=== PATIENT | male | born 1940 | race Hispanic/Latino ===

== ENCOUNTER 2018-04-10 23:30 | Emergency (ER) | payer SELFPAY ==
[2018-04-11] MEDS ORDERED: IPRATROPIUM BROM 0.5MG/2.5ML ONE (00:02)
[2018-04-11] MEDS ORDERED: ALBUTEROL 2.5 MG/3 ML NEB SOL ONE (00:02)
--- NOTE | 2018-04-11 01:31 | ER ---
Nurse's Notes [facility] Name: Glenn Cooney Age: 78 yrs Sex: Male : 1940 Arrival Date: 04/10/2018 Time: 23:31 Bed 13 Private MD: Diagnosis: Bronchitis, not specified as acute or chronic Presentation: 04/10 23:47 Presenting complaint: Son report pt has been having difficulty breathing for about a ea week, he has been unable to clear his secretions. Transition of care: patient was not received from another setting of care. Onset of symptoms was April 10, 2018. Risk Assessment: Do you want to hurt yourself or someone else? Patient reports no desire to harm self or others. Initial Sepsis Screen: Does the patient meet any 2 criteria? No. Patient's initial sepsis screen is negative. Does the patient have a suspected source of infection? No. Patient's initial sepsis screen is negative. Care prior to arrival: None. 23:47 Method Of Arrival: Ambulatory ea 23:47 Acuity: EDUAR 3 ea Triage Assessment: 23:47 General: Appears uncomfortable, Behavior is appropriate for age. Pain: Denies pain. ea EENT: tracheostomy . Neuro: Level of Consciousness is awake, alert, obeys commands, Oriented to person, place, time. Cardiovascular: Patient's skin is warm and dry. Respiratory: Reports labored breathing since 1 week Onset: The symptoms/episode began/occurred gradually, the patient has mild shortness of breath. GI: No signs and/or symptoms were reported involving the gastrointestinal system. : No signs and/or symptoms were reported regarding the genitourinary system. Derm: Skin is pink, warm \T\ dry. 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 - Social history:: Smoking status: Patient/guardian denies using tobacco. - Ebola Screening: : No symptoms or risks identified at this time. Screenin:51 Abuse screen: Denies threats or abuse. Nutritional screening: No deficits noted. ea Tuberculosis screening: No symptoms or risk factors identified. Fall Risk None identified. Assessment: 11:57 Cardiovascular: Patient's skin is warm and dry. Respiratory: Airway is patent ea Respiratory effort is labored, Breath sounds are clear bilaterally. 04/11 00:02 Reassessment: see triage assessment. ea 01:38 Reassessment: Patient and/or family updated on plan of care and expected duration. Pain ea level reassessed. Patient is alert, oriented x 3, equal unlabored respirations, skin warm/dry/pink. Discharge instruction given to patient and family, both verbalized the understanding of instruction Patient states feeling better. Patient states symptoms have improved. Vital Signs: 04/10 23:47 BP 144 / 70; Pulse 70; Resp 22; Temp 98.6; Pulse Ox 99% on R/A; Weight 81.65 kg; Height ea 5 ft. 6 in. (167.64 cm); Pain 0/10; 04/11 00:50 BP 138 / 68; Pulse 67; Resp 19; Pulse Ox 99% ; ea 01:30 BP 132 / 70; Pulse 76; Resp 19; Pulse Ox 99% ; ea 04/10 23:47 Body Mass Index 29.05 (81.65 kg, 167.64 cm) ea ED Course: 04/10 23:31 Patient arrived in ED. am2 23:40 Tania Cordero FNP-C [facility]. snw 23:40 Denise Ambrosio MD is Attending Physician. snw 23:47 Yani Zarco RN is Primary Nurse. ea 23:48 Triage completed. ea 23:52 Patient has correct armband on for positive identification. Bed in low position. Call ea light in reach. Side rails up X2. 23:52 Arm band placed on right wrist. Patient placed in an exam room, on a stretcher, on ea pulse oximetry. 04/11 00:27 X-ray completed. Portable x-ray completed in exam room. Patient tolerated procedure sg4 well. 00:34 Chest Single View XRAY In Process Unspecified. EDMS 01:40 No provider procedures requiring assistance completed. Patient did not have IV access ea during this emergency room visit. Administered Medications: 04/10 23:56 Drug: Albuterol - atroVENT (3:1) (2.5 mg - 0.5 mg) 3 ml Route: Nebulizer; ea Outcome: 04/11 01:30 Discharge ordered by . bernardo 01:40 Discharged to home ambulatory, with family. snow 01:40 Condition: improved 01:40 Discharge instructions given to patient, family, Instructed on discharge instructions, follow up and referral plans. medication usage, Demonstrated understanding of instructions, follow-up care, medications, Prescriptions given X 1. 01:49 Patient left the ED. ea Signatures: Dispatcher [employer] EDMS Tania Cordero, PROCESSOR HELPER-C PROCESSOR HELPER-Csnw Sarai Salazar Elena, RN RN Bee Carlisle4
--- NOTE | 2018-04-11 01:31 | EDPHYS ---
Physician Documentation [facility] Name: Glenn Cooney Age: 78 yrs Sex: Male : 1940 Arrival Date: 04/10/2018 Time: 23:31 Bed 13 Private MD: ED Physician Denise Ambrosio HPI: 04/10 23:51 This 78 yrs old Male presents to ER via Ambulatory with complaints of snw Breathing Difficulty, Productive Cough, Congestion. 23:51 The patient has shortness of breath at rest. Onset: The symptoms/episode began/occurred snw suddenly, 4 day(s) ago, and became persistent. Duration: The symptoms are continuous, and are unchanged since they started. The patient's shortness of breath is aggravated by coughing. Severity of symptoms: At their worst the symptoms were moderate. The patient has experienced similar episodes in the past. It is unknown whether or not the patient has recently seen a physician. 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 - Social history:: Smoking status: Patient/guardian denies using tobacco. - Ebola Screening: : No symptoms or risks identified at this time. ROS: 23:51 Constitutional: Negative for fever, chills, and weight loss, Eyes: Negative for injury, snw pain, redness, and discharge, ENT: Negative for injury, pain, and discharge, Neck: Negative for injury, pain, and swelling, Cardiovascular: Negative for chest pain, palpitations, and edema. 23:51 Abdomen/GI: Negative for abdominal pain, nausea, vomiting, diarrhea, and constipation, Back: Negative for injury and pain, : Negative for injury, bleeding, discharge, and swelling, MS/Extremity: Negative for injury and deformity, Skin: Negative for injury, rash, and discoloration, Neuro: Negative for headache, weakness, numbness, tingling, and seizure. 23:51 Respiratory: Positive for cough, shortness of breath. Exam: 23:48 Constitutional: This is a well developed, well nourished patient who is awake, alert, snw and in no acute distress. Head/Face: Normocephalic, atraumatic. Eyes: Pupils equal round and reactive to light, extra-ocular motions intact. Lids and lashes normal. Conjunctiva and sclera are non-icteric and not injected. Cornea within normal limits. Periorbital areas with no swelling, redness, or edema. ENT: Nares patent. No nasal discharge, no septal abnormalities noted. Tympanic membranes are normal and external auditory canals are clear. Oropharynx with no redness, swelling, or masses, exudates, or evidence of obstruction, uvula midline. Mucous membranes moist. Chest/axilla: Normal chest wall appearance and motion. Nontender with no deformity. No lesions are appreciated. Cardiovascular: Regular rate and rhythm with a normal S1 and S2. No gallops, murmurs, or rubs. Normal PMI, no JVD. No pulse deficits. Abdomen/GI: Soft, non-tender, with normal bowel sounds. No distension or tympany. No guarding or rebound. No evidence of tenderness throughout. Back: No spinal tenderness. No costovertebral tenderness. Full range of motion. Skin: Warm, dry with normal turgor. Normal color with no rashes, no lesions, and no evidence of cellulitis. MS/ Extremity: Pulses equal, no cyanosis. Neurovascular intact. Full, normal range of motion. Neuro: Awake and alert, GCS 15, oriented to person, place, time, and situation. Cranial nerves II-XII grossly intact. Motor strength 5/5 in all extremities. Sensory grossly intact. Cerebellar exam normal. Normal gait. Psych: Awake, alert, with orientation to person, place and time. Behavior, mood, and affect are within normal limits. 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 no appliance except plug for speech assistance. 23:48 Respiratory: the patient does not display signs of respiratory distress, Respirations: shallow respirations, tachypnea, Breath sounds: wheezing: that is mild, is heard diffusely, SpO2 100% room air. Vital Signs: 23:47 BP 144 / 70; Pulse 70; Resp 22; Temp 98.6; Pulse Ox 99% on R/A; Weight 81.65 kg; Height ea 5 ft. 6 in. (167.64 cm); Pain 0/10; 04/11 00:50 BP 138 / 68; Pulse 67; Resp 19; Pulse Ox 99% ; ea 01:30 BP 132 / 70; Pulse 76; Resp 19; Pulse Ox 99% ; ea 04/10 23:47 Body Mass Index 29.05 (81.65 kg, 167.64 cm) ea MDM: 04/10 23:41 Patient medically screened. snw 04/11 01:29 Data reviewed: vital signs, nurses notes. Data interpreted: Pulse oximetry: on room air snw is 99 %. Interpretation: normal. Counseling: I had a detailed discussion with the patient and/or guardian regarding: the historical points, exam findings, and any diagnostic results supporting the discharge/admit diagnosis, the presence of at least one elevated blood pressure reading (>120/80) during this emergency department visit, radiology results, the need for outpatient follow up, to return to the emergency department if symptoms worsen or persist or if there are any questions or concerns that arise at home. Response to treatment: the patient's symptoms have markedly improved after treatment, and as a result, I will discharge patient. Special discussion: Based on the history and exam findings, there is no indication for further emergent testing or inpatient evaluation. I discussed with the patient/guardian the need to see the primary care provider for further evaluation of the symptoms. I discussed with the patient/guardian the need to see the choke setter for further evaluation of the symptoms. 04/10 23:46 Order name: Chest Single View XRAY snw 04/10 23:46 Order name: Suction; Complete Time: 23:56 snw Administered Medications: 04/10 23:56 Drug: Albuterol - atroVENT (3:1) (2.5 mg - 0.5 mg) 3 ml Route: Nebulizer; ea Disposition: 04/11 06:00 Co-signature as Attending Physician, Denise Ambrosio MD. ma2 Disposition: 04/11/18 01:30 Discharged to Home. Impression: Bronchitis, not specified as acute or chronic. - Condition is Stable. - Discharge Instructions: Acute Bronchitis, Adult, Hypertension, Cool Mist Vaporizer, Rehydration, Elderly. - Prescriptions for Guaifenesin- DM 10-100 mg/5 mL Oral Liquid - take 5 milliliter by ORAL route every 8 hours As needed as needed; 60 milliliter. - Medication Reconciliation Form, Thank You Letter, Antibiotic Education, Prescription Opioid Use form. - Follow up: Private Physician; When: 1 - 2 days; Reason: Recheck today's complaints, Continuance of care, Re-evaluation by your physician. Follow up: Emergency Department; When: As needed; Reason: Trouble breathing, Worsening of condition. Signatures: Dispatcher [employer] EDAL Tania Cordero, TRINIDAD-C CAD CAM PROGRAMMER-Csnw Yani Zarco, Denise Quintana RN, ea, MD MD ma2 Corrections: (The following items were deleted from the chart) 01:49 01:30 04/11/2018 01:30 Discharged to Home. Impression: Bronchitis, not specified as ea acute or chronic. Condition is Stable. Forms are Medication Reconciliation Form, Thank You Letter, Antibiotic Education, Prescription Opioid Use. Follow up: Private Physician; When: 1 - 2 days; Reason: Recheck today's complaints, Continuance of care, Re-evaluation by your physician. Follow up: Emergency Department; When: As needed; Reason: Trouble breathing, Worsening of condition. snw
[2018-04-11 02:02] VITALS: BP 144/70; TEMP 98.6; O2SAT 99
--- NOTE | 2018-04-11 13:52 | RAD REPORT ---
EXAM DESCRIPTION: RAD - Chest Single View - 04/11/2018 12:33 am CLINICAL HISTORY: COUGH Chest pain. COMPARISON: Chest Single View dated 12/16/2016; CHEST SINGLE VIEW dated 01/03/2013; CHEST SINGLE VIEW d ated 11/04/2012 FINDINGS: Portable technique limits examination quality. The lungs are grossly clear. Mild chronic changes are present in the left base. The heart is normal i n size. No displaced fractures. IMPRESSION: No acute intrathoracic process suspected.
== END 2018-04-11 01:49 | disposition home or self-care (01) ==
LOC: ER 23:30
DX: J40 Bronchitis, not specified as acute or chronic (principal); E03.9 Hypothyroidism, unspecified; I10 Essential (primary) hypertension; Z79.899 Other long term (current) drug therapy
CPT/HCPCS: 71045; 94640; 99284

== ENCOUNTER 2020-06-08 12:46 | Inpatient (IN) | payer SELFPAY ==
--- OUTSIDE RECORDS SUMMARY | 2020-06-08 12:52 | XMS REPORT | Continuity of Care Document ---
:1940 Author Organization [facility] t Address [address] [place] [address] Care Team Providers Name Role Phone Hortencia CORONADO, Lou Lozoya Attending Clinician Unavailable Problems This patient has no known problems. Allergies, Adverse Reactions, Alerts This patient has no known allergies or adverse reactions. Medications This patient has no known medications. Procedures This patient has no known procedures. Encounters Start End Encounter Admission Attending Care Care Encounter Source Date/Time Date/Time Type Type Clinicians Facility Department ID 2018-12-22 2018-12-23 Ancillary CHUCKY Burnett [id number] 07:58:54 21:59:48 Visit Lou Lozoya [facility] [id number] Cancer [id number] Center - [id number] [facility] 145 Results This patient has no known results.
--- NOTE | 2020-06-08 14:06 | RAD REPORT ---
EXAM DESCRIPTION: RAD - Chest Single View - 06/08/2020 1:48 pm CLINICAL HISTORY: SOB COMPARISON: AP chest March 2018 TECHNIQUE: AP portable chest image was obtained 06/08/2020 1:48 pm . FINDINGS: Lung volumes are reduced compared to prior study. Increased interstitial pattern is seen i n both lung bases, worse on the left. Similar findings were noted on the prior study and the current lower lung volume could account for the accentuated appearance on this examination. Heart and vascula ture are normal. No measurable pleural effusion and no pneumothorax. No acute bony abnormality seen. No acute aortic findings suspected. IMPRESSION: Chronic interstitial pattern worse in the left lung base. When adjusting for the more shallow inspiratory effort, chest findings are not substantially differen t.
[2020-06-08] MEDS ORDERED: NA CHLORIDE 0.9% 2,000 ML ONE (14:10)
[2020-06-08 14:15] LABS: Basophils % 0.1 % (0-1.3); Hematocrit 41.4 % (39.6-49.0); Lymphocytes % 14.9 % (15.3-44.8); MPV 10.4 fL (7.6-11.3); RBC Red Blood Cell Count 4.77 M/uL (4.33-5.43)
[2020-06-08 14:27] LABS: Protime INR 1.05
[2020-06-08 14:51] LABS: Urine Blood NEGATIVE (NEG); Urine Glucose NEGATIVE (NEG); Urine Protein 1+ (NEG)
[2020-06-08 14:53] LABS: Albumin 3.1 g/dL (3.4-5.0); Bilirubin Direct 0.5 mg/dL (0-0.2); Bilirubin Total 1.6 mg/dL (0.2-1.0); Ferritin 2222.9 ng/mL (26-388); Potassium 4.4 mmol/L (3.5-5.1); Protein, Total 8.1 g/dL (6.4-8.2); Troponin (Emerg Dept Use Only) 0.07 ng/mL (0.0-0.045)
[2020-06-08 15:05] LABS: Urine Amorphous Sediment 4+ /HPF (NONE SEEN); Urine Bacteria <20 /HPF (NONE SEEN); Urine RBC <5 /HPF (NONE SEEN)
[2020-06-08 15:08] LABS: Blood Morphology Comment NOT SEEN (NOT SEEN); Platelet Estimate DECR; White Blood Cell Scan OK (OK)
[2020-06-08 15:17] LABS: SARS-COV-2 RT PCR POSITIVE (NEGATIVE)
--- NOTE | 2020-06-08 15:50 | EDPHYS ---
Physician Documentation [facility] Name: Glenn Cooney Age: 80 yrs Sex: Male : 1940 Arrival Date: 06/08/2020 Time: 12:48 Bed 25 Private MD: ED Physician Chris Spaulding HPI: 06/08 13:41 This 80 yrs old Male presents to ER via Wheelchair with complaints of tw4 Breathing Difficulty, General Weakness. 13:41 The patient has shortness of breath at rest. Onset: The symptoms/episode began/occurred tw4 at an unknown time. Associated signs and symptoms: Pertinent positives: generalized weakness. Unable to obtain HPI due to patient's speech is incomprehensible. The patient has not experienced similar symptoms in the past. 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 - Social history:: Smoking status: Patient denies any tobacco usage or history of. ROS: 13:41 Constitutional: Negative for fever, chills, and weight loss, Eyes: Negative for injury, tw4 pain, redness, and discharge, Cardiovascular: Negative for chest pain, palpitations, and edema, Abdomen/GI: Negative for abdominal pain, nausea, vomiting, diarrhea, and constipation, Back: Negative for injury and pain, MS/Extremity: Negative for injury and deformity, Skin: Negative for injury, rash, and discoloration, Neuro: Negative for headache, weakness, numbness, tingling, and seizure. 13:41 Respiratory: Positive for shortness of breath, Negative for cough, dyspnea on exertion, hemoptysis, orthopnea, pleurisy. Exam: 13:41 Constitutional: This is a well developed, well nourished patient who is awake, alert, tw4 and in no acute distress. Head/Face: Normocephalic, atraumatic. Neck: Trachea midline, no thyromegaly or masses palpated, and no cervical lymphadenopathy. Supple, full range of motion without nuchal rigidity, or vertebral point tenderness. No Meningismus. Chest/axilla: Normal chest wall appearance and motion. Nontender with no deformity. No lesions are appreciated. Cardiovascular: Regular rate and rhythm with a normal S1 and S2. No gallops, murmurs, or rubs. Normal PMI, no JVD. No pulse deficits. Abdomen/GI: Soft, non-tender, with normal bowel sounds. No distension or tympany. No guarding or rebound. No evidence of tenderness throughout. Back: No spinal tenderness. No costovertebral tenderness. Full range of motion. Skin: Warm, dry with normal turgor. Normal color with no rashes, no lesions, and no evidence of cellulitis. MS/ Extremity: Pulses equal, no cyanosis. Neurovascular intact. Full, normal range of motion. Neuro: Awake and alert, GCS 15, oriented to person, place, time, and situation. Cranial nerves II-XII grossly intact. Motor strength 5/5 in all extremities. Sensory grossly intact. Cerebellar exam normal. Normal gait. Vital Signs: 13:00 BP 90 / 58; Pulse 56; Resp 22 S; Temp 97.6(TE); Pulse Ox 96% on R/A; Weight 63.5 kg ca1 (R); Height 5 ft. 9 in. (175.26 cm) (R); 13:00 BP 94 / 59; Pulse 54; Resp 23; Pulse Ox 95% on R/A; zb 14:00 BP 90 / 49; Pulse 53; Resp 18; Pulse Ox 97% on R/A; dh4 14:00 BP 101 / 46; Pulse 54; Resp 18; Pulse Ox 96% on R/A; dh4 15:00 BP 101 / 46; Pulse 53; Resp 20; Pulse Ox 96% on R/A; zb 16:00 BP 99 / 50; Pulse 53; Resp 22; Pulse Ox 96% on R/A; zb 17:00 BP 105 / 52; Pulse 53; Resp 20; Pulse Ox 97% on R/A; zb 18:00 BP 102 / 64; Pulse 59; Resp 20; Pulse Ox 97% on R/A; zb 19:00 BP 90 / 59; Pulse 57; Resp 21; Pulse Ox 98% on R/A; zb 20:00 BP 117 / 64; Pulse 57; Resp 19; Pulse Ox 97% on R/A; zb 13:00 Body Mass Index 20.67 (63.50 kg, 175.26 cm) ca1 MDM: 13:34 Patient medically screened. tw4 13:41 Data reviewed: vital signs, nurses notes. 06/08 13:11 Order name: Blood Culture Adult (2) 4 06/08 13:11 Order name: BMP 4 06/08 13:11 Order name: C-Reactive Protein 4 06/08 13:11 Order name: CBC with Diff 06/08 13:11 Order name: COVID-19 [facility] 06/08 13:11 Order name: D-Dimer 06/08 13:11 Order name: Ferritin 06/08 13:11 Order name: Flu 06/08 13:11 Order name: Lactate 06/08 13:11 Order name: LFT's [facility] 06/08 13:11 Order name: Lipase 06/08 13:11 Order name: Procalcitonin [facility] 06/08 13:11 Order name: PT-INR [facility] 06/08 13:11 Order name: Ptt, Activated 06/08 13:11 Order name: Strep 06/08 13:11 Order name: Troponin (emerg Dept Use Only) [facility] 06/08 13:11 Order name: Urine Microscopic Only 06/08 13:12 Order name: BNP 06/08 14:20 Order name: [facility] 06/08 14:20 Order name: Influenza Screen (A EDPA 06/08 14:21 Order name: Lactate; Complete Time: 14:49 MS 06/08 14:51 Interpretation: Within normal limits: LAC 1.4. 06/08 14:22 Order name: CBC with Automated Diff; Complete Time: 15:45 EDMS 06/08 14:50 Interpretation: Normal except: LYM% 14.9; PLT 94; SALIMA% 78.8. 06/08 14:23 Order name: Group A Streptococcus Rapid Sc; Complete Time: 14:49 EDMS 06/08 14:50 Interpretation: Normal except: GP A STREP SC \T\nbsp; GROUP A STREP SCREEN-- \T\nbsp; tw 4 \T\nbsp; POSITIVE. 06/08 14:30 Order name: Protime (+INR); Complete Time: 14:49 EDMS 06/08 14:51 Interpretation: Within normal limits: PT 12.4. tw4 01/22 14:30 Order name: PTT, Activated Partial Thromb; Complete Time: 14:49 EDMS 06/08 14:51 Interpretation: Within normal limits: PTT 26.0. 06/08 14:30 Order name: D-Dimer; Complete Time: 14:49 EDMS 06/08 14:50 Interpretation: Normal except: D-DIMER 1553. 06/08 14:31 Order name: Urine Dipstick--Ancillary (enter results) 06/08 14:42 Order name: Procalcitonin; Complete Time: 15:45 EDMS 06/08 14:50 Interpretation: Abnormal: Procalcitonin 0.37. 06/08 14:51 Order name: Urine Dipstick-Ancillary; Complete Time: 15:00 EDMS 06/08 14:54 Order name: Basic Metabolic Panel; Complete Time: 14:58 EDMS 06/08 14:58 Interpretation: Normal except: CRE 2.45; BUN 80; GLUC 113; GFR 26. 06/08 13:11 Order name: CXR XRAY 06/08 13:11 Order name: EKG; Complete Time: 13:13 06/08 13:11 Order name: Cardiac monitoring; Complete Time: 14:05 06/08 13:11 Order name: Droplet/Contact Precautions; Complete Time: 14:05 06/08 13:11 Order name: EKG - Nurse/Tech; Complete Time: 14:05 06/08 13:11 Order name: Michaud; Complete Time: 14:28 06/08 13:11 Order name: IV Start; Complete Time: 14:05 06/08 13:11 Order name: Labs collected and sent; Complete Time: 14:05 06/08 13:11 Order name: O2 Per Protocol; Complete Time: 14:05 06/08 13:11 Order name: O2 Sat Monitoring; Complete Time: 14:05 06/08 13:11 Order name: Urine Dipstick-Ancillary (obtain specimen); Complete Time: 14:28 06/08 14:07 Order name: RAD; Complete Time: 14:49 EDMS 06/08 14:50 Interpretation: Abnormal. 06/08 14:54 Order name: Liver (Hepatic) Function; Complete Time: 14:58 EDMS 06/08 14:58 Interpretation: Normal except: AST 352; ALT 263; ALK 125; BILIT 1.6; GLOB 5.0; ALB 3.1; tw4 BILID 0.5. 06/08 14:54 Order name: Troponin (Emerg Dept Use Only); Complete Time: 14:58 EDMS 06/08 14:58 Interpretation: Abnormal: TROPED 0.07. 06/08 14:54 Order name: NT PRO-BNP; Complete Time: 14:59 EDMS 06/08 14:59 Interpretation: Within normal limits: NT PRO-BNP 124. 06/08 14:54 Order name: C-Reactive Protein; Complete Time: 14:59 EDMS 06/08 14:59 Interpretation: Abnormal: C-REACTIVE PROT 105.00. 06/08 14:54 Order name: Lipase; Complete Time: 14:59 EDMS 06/08 14:59 Interpretation: Within normal limits: LIP 243. 06/08 14:54 Order name: Ferritin; Complete Time: 14:59 EDMS 06/08 14:59 Interpretation: Abnormal: ADA 2222.9. 06/08 15:05 Order name: Urine Microscopic Only; Complete Time: 15:41 EDMS 06/08 15:08 Order name: CBC Smear Scan; Complete Time: 15:45 EDMS 06/08 15:17 Order name: COVID-19/FLU A+B; Complete Time: 15:40 EDMS 06/08 17:20 Order name: CT Chest Wo Con 06/08 17:20 Order name: CT Abd/Pelvis - Without Contrast 06/08 17:53 Order name: Chest Abd Pelvis Wo Con; Complete Time: 18:25 EDMS EC:57 Rate is 58 beats/min. Rhythm is regular. QRS [place] is Normal. [place] interval is normal. QRS tw4 interval is normal. QT interval is normal. No Q waves. T waves are Normal. No ST changes noted. Clinical impression: Sinus bradycardia. Interpreted by me. Reviewed by me. Administered Medications: 14:03 Drug: NS 0.9% (30 ml/kg) 30 ml/kg Route: IV; Rate: bolus; Site: left antecubital; zb 15:00 Follow up: Response: No adverse reaction; Blood pressure is elevated; IV Status: zb Completed infusion; IV Intake: 1900ml 15:55 Drug: covid/flu 1 application Route: Mucous Membrane; ca1 Disposition: 06/08/20 15:49 Hospitalization ordered by Francisco Boyce for Inpatient Admission. Preliminary diagnosis are Coronavirus infection, unspecified, Acute kidney failure, Nonspecific elevation of levels of transaminase and lactic acid dehydrogenase [LDH]. - Bed requested for Telemetry/MedSurg (Inpatient). - Status is Inpatient Admission. zb - Condition is Stable. - Problem is new. - Symptoms are unchanged. Signatures: Dispatcher [employer] EDMS [employer]qu[employer] Cat, CHANNELING MACHINE OPERATOR-C CHANNELING MACHINE OPERATOR-Cla1 Patti Pablo, RN RN cg Chris Spaulding MD MD tw4 Arcelia Villegas RN RN ca1 Emelyn Chauhan RN RN zjesus Corrections: (The following items were deleted from the chart) 20:03 15:49 Hospitalization Ordered by Francisco Boyce MD for Inpatient Admission. Preliminary cg diagnosis is Coronavirus infection, unspecified; Acute kidney failure; Nonspecific elevation of levels of transaminase and lactic acid dehydrogenase [LDH]. Bed requested for Telemetry/MedSurg (Inpatient). Status is Inpatient Admission. Condition is Stable. Problem is new. Symptoms are unchanged. tw4 20:39 20:03 06/08/2020 15:49 Hospitalization Ordered by Francisco Boyce MD for Inpatient zb Admission. Preliminary diagnosis is Coronavirus infection, unspecified; Acute kidney failure; Nonspecific elevation of levels of transaminase and lactic acid dehydrogenase [LDH]. Bed requested for Telemetry/MedSurg (Inpatient). Status is Inpatient Admission. Condition is Stable. Problem is new. Symptoms are unchanged. cg
--- NOTE | 2020-06-08 15:50 | ER ---
Nurse's Notes [facility] Name: Glenn Cooney Age: 80 yrs Sex: Male : 1940 Arrival Date: 06/08/2020 Time: 12:48 Bed 25 Private MD: Diagnosis: Coronavirus infection, unspecified;Acute kidney failure;Nonspecific elevation of levels of transaminase and lactic acid dehydrogenase [LDH] Presentation: 06/08 13:00 Chief complaint: Patient's son or daughter states: Grandson: My grandmother says he has ca1 been very weak, having difficulty breathing, not eating x 1 week. He responds really slow when talked to. 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 Coronavirus screen: difficulty breathing, fatigue, Client presents with at least one sign or symptom that may indicate coronavirus-19. Standard/surgical mask placed on the client. Provider contacted for isolation considerations. Ebola Screen: Patient negative for fever greater than or equal to 101.5 degrees Fahrenheit, and additional compatible Ebola Virus Disease symptoms Patient denies exposure to infectious person. Patient denies travel to an Ebola-affected area in the 21 days before illness onset. No symptoms or risks identified at this time. Initial Sepsis Screen: Does the patient meet any 2 criteria? No. Patient's initial sepsis screen is negative. Does the patient have a suspected source of infection? No. Patient's initial sepsis screen is negative. Risk Assessment: Do you want to hurt yourself or someone else? Patient reports no desire to harm self or others. Onset of symptoms was June 08, 2020. 13:00 Method Of Arrival: Wheelchair ca1 13:00 Acuity: EDUAR 2 ca1 Historical: - Allergies: 13:09 No Known Allergies; ca1 - PMHx: 13:09 cancer in neck; Hypertension; Hypothyroidism; radiation; vocal chords damaged; ca1 - PSHx: 13:09 trache; ca1 - Immunization history:: Pneumococcal vaccine status is unknown, Flu vaccine status is unknown. - Social history:: Smoking status: Patient denies any tobacco usage or history of. Screenin:06 Abuse screen: no s/s of abuse. Nutritional screening: No deficits noted. Tuberculosis zb screening: No symptoms or risk factors identified. Fall Risk Fall in past 12 months (25 points). Secondary diagnosis (15 points) IV access (20 points). Ambulatory Aid- None/Bed Rest/Nurse Assist (0 pts). Gait- Impaired (20 pts.). Mental Status- Overestimates/Forgets Limitations (15 pts.). Total [place] Fall Scale indicates High Risk Score (45 or more points). Fall prevention measures have been instituted. Side Rails Up X 2 Placed Close to Nursing Station Frequent Obs/Assessments Occuring Family Present and informed to notify staff if the need to leave the bedside As available patient and family educated on Fall Prevention Program and Strategies. Assessment: 14:00 Reassessment: patient bp 77/52. ECP notified. Bolus ordered. zb 14:00 General: Appears in no apparent distress. uncomfortable, Behavior is drowsy. Pain: zb Unable to use pain scale. Patient is disoriented. Neuro: Level of Consciousness is lethargic, Oriented to none . Cardiovascular: Heart tones S1 S2 present Capillary refill is > 3 seconds is sluggish in bilateral fingers Patient's skin is warm and dry. Rhythm is sinus bradycardia. Respiratory: Airway via trache Respiratory effort is even, unlabored, Respiratory pattern is tachypnea Sputum is thick, yellow Breath sounds are diminished in left lower lobe and right lower lobe Breath sounds with rales bilaterally. GI: Abdomen is flat, non-distended. : No signs and/or symptoms were reported regarding the genitourinary system. EENT:. Derm: Skin is fragile, is thin, Skin is dry, Skin is dusky. Musculoskeletal: Capillary refill is > 3 seconds, is sluggish, in bilateral fingers. 15:00 Reassessment: Patient appears in no apparent distress at this time. Patient and/or zb family updated on plan of care and expected duration. Pain level reassessed. family at bedside, patient Finnish speaking. patient appears a more awake at this time. 16:34 Reassessment: Patient appears in no apparent distress at this time. Patient and/or ca1 family updated on plan of care and expected duration. Pain level reassessed. pt appears to be resting quietly. son stepped out for a moment. 17:30 Reassessment: Patient appears in no apparent distress at this time. Patient and/or zb family updated on plan of care and expected duration. Pain level reassessed. ECP at bedside. discussing pain of care with patient. 18:22 Reassessment: Patient appears in no apparent distress at this time. Patient and/or zb family updated on plan of care and expected duration. Pain level reassessed. patient appears to be resting at this time. no c/o at this time. patient remains to have a cough and sputum tho the trach. HOB elevated. famliy remains at bedside. 19:06 Reassessment: Patient appears in no apparent distress at this time. Patient and/or zb family updated on plan of care and expected duration. Pain level reassessed. grandson left. number to contact # [phone]. 20:00 Reassessment: Patient appears in no apparent distress at this time. Patient and/or zb family updated on plan of care and expected duration. Pain level reassessed. no changes at this time. patient remains lying in bed. appears to be asleep. Vital Signs: 13:00 BP 90 / 58; Pulse 56; Resp 22 S; Temp 97.6(TE); Pulse Ox 96% on R/A; Weight 63.5 kg ca1 (R); Height 5 ft. 9 in. (175.26 cm) (R); 13:00 BP 94 / 59; Pulse 54; Resp 23; Pulse Ox 95% on R/A; zb 14:00 BP 90 / 49; Pulse 53; Resp 18; Pulse Ox 97% on R/A; dh4 14:00 BP 101 / 46; Pulse 54; Resp 18; Pulse Ox 96% on R/A; dh4 15:00 BP 101 / 46; Pulse 53; Resp 20; Pulse Ox 96% on R/A; zb 16:00 BP 99 / 50; Pulse 53; Resp 22; Pulse Ox 96% on R/A; zb 17:00 BP 105 / 52; Pulse 53; Resp 20; Pulse Ox 97% on R/A; zb 18:00 BP 102 / 64; Pulse 59; Resp 20; Pulse Ox 97% on R/A; zb 19:00 BP 90 / 59; Pulse 57; Resp 21; Pulse Ox 98% on R/A; zb 20:00 BP 117 / 64; Pulse 57; Resp 19; Pulse Ox 97% on R/A; zb 13:00 Body Mass Index 20.67 (63.50 kg, 175.26 cm) ca1 ED Course: 12:48 Patient arrived in ED. ag5 12:56 Chris Spaulding MD is Attending Physician. tw4 13:08 Triage completed. ca1 13:09 Arm band placed on right wrist. ca1 13:10 Emelyn Chauhan, RN is Primary Nurse. zb 13:48 Inserted saline lock: 20 gauge in left antecubital area, using aseptic technique. Blood ca1 collected. 13:48 Initial lab(s) drawn, by me, sent to lab. ca1 13:48 First set of blood cultures drawn by me. ca1 14:05 BNP Sent. sv 14:05 Troponin (emerg Dept Use Only) Sent. sv 14:05 Ptt, Activated Sent. sv 14:05 PT-INR Sent. sv 14:05 Procalcitonin Sent. sv 14:05 Lipase Sent. sv 14:05 LFT's Sent. sv 14:05 Second set of blood cultures drawn by me. Inserted saline lock: 22 gauge in right ca1 wrist, using aseptic technique. Blood collected. 14:06 Strep Sent. sv 14:06 Lactate Sent. sv 14:06 Flu Sent. sv 14:06 Ferritin Sent. sv 14:06 D-Dimer Sent. sv 14:06 COVID-19 Sent. sv 14:06 CBC with Diff Sent. sv 14:06 C-Reactive Protein Sent. sv 14:06 BMP Sent. sv 14:06 Blood Culture Adult (2) Sent. sv 14:20 Michaud cath inserted, using sterile technique, 16 Fr., by ne, balloon inflated, to sv gravity drainage, returned clear yellow urine. Patient tolerated well. 14:27 EKG done, by ED staff, reviewed by Chris Spaulding MD. mh5 14:28 Urine Microscopic Only Sent. ca1 14:29 Patient has correct armband on for positive identification. Placed in gown. Bed in low mh5 position. Call light in reach. Side rails up X2. Adult w/ patient. Warm blanket given. route specialist on. Pulse ox on. NIBP on. 14:38 Urine Dipstick--Ancillary (enter results) Sent. sv 14:38 CXR XRAY Sent. sv 15:47 Francisco Boyce MD is Hospitalizing Provider. tw4 17:57 Chest Abd Pelvis Wo Con In Process Unspecified. EDMS 18:11 Influenza Screen (A Sent. sv 18:11 CORONAVIRUS Sent. sv 18:12 CT Abd/Pelvis - Without Contrast Sent. sv 20:32 Patient admitted, IV remains in place. zb Administered Medications: 14:03 Drug: NS 0.9% (30 ml/kg) 30 ml/kg Route: IV; Rate: bolus; Site: left antecubital; zb 15:00 Follow up: Response: No adverse reaction; Blood pressure is elevated; IV Status: zb Completed infusion; IV Intake: 1900ml 15:55 Drug: covid/flu 1 application Route: Mucous Membrane; ca1 Intake: 15:00 IV: 1900ml; Total: 1900ml. zb Outcome: 15:49 Decision to Hospitalize by Provider. tw4 20:31 Admitted to Med/surg accompanied by tech, via stretcher, room 411, on monitor, with zb chart, Report called to JOSSELYN Barnes 20:31 Condition: stable 20:31 Discharge instructions given to patient, family, Instructed on the need for admit, Demonstrated understanding of instructions. 20:39 Patient left the ED. zb Signatures: Dispatcher [employer] Madhavi Billings, Layne Whitman RN Chris Kirkland MD MD 4 Arcelia Villegas RN RN ca1 Amalia Jeffers Munir Melissa Emelyn Sepulveda RN RN zb
--- NOTE | 2020-06-08 18:20 | RAD REPORT ---
EXAM DESCRIPTION: CT - Chest Abd Pelvis Wo Con - 06/08/2020 5:57 pm CLINICAL HISTORY: sepsis COMPARISON: CTANGIO CHEST FOR PE dated 01/04/2013; Chest Single View dated 06/08/2020 TECHNIQUE: Axial 5 millimeter thick images of the chest, abdomen and pelvis were obtained without IV contrast. Oral contrast was administered. All CT scans are performed using dose optimization technique as appropriate and may include automated exposure control or mA/KV adjustment according to patient size. FINDINGS: Chronic fibrotic lung changes are present. Scattered airspace opacities and interstitial s tranding noted along the posterior aspect of each upper lobe abutting the fissure. There is subpleura l airspace opacification in the lingula of the left upper lobe. Patchy airspace opacification or nodu larity present in the medial left lung base. No pneumothorax or pleural effusion. No chest wall mass or abnormal axillary lymphadenopathy seen. Mediastinal and hilar regions show no mass or lymphadenopathy. No significant cardiac finding. The liver, spleen and pancreas show no significant findings for non contrast imaging. Gallbladder an d biliary tree are normal. No hydronephrosis or suspicious renal mass. Isodense masses and pyelonephritis cannot be excluded on non contrast imaging. No adrenal abnormalities. Bladder is partially contracted around a Michaud mc ter. Bladder wall thickening is not identifiable. No prostate gland enlargement. No edematous or infl ammatory stranding surrounding the bladder, prostate gland or kidneys. Gastric tube has been placed. The tip terminates in the distal esophagus and does not reach the stoma ch. Patient has a minimal hiatal hernia. Air and fluid are present in the stomach. Stomach is not dil ated. Atkins cannot be accurately assessed in the fundus. Body and antrum show no wall thickening or e amanda. No dilated large or small bowel loops. Moderate stool volume is present in the sigmoid and dist al descending colon. No active or acute bowel process seen. No free air, free fluid or inflammatory stranding. No hernia, mass or bulky lymphadenopathy. No significant bone or vascular finding. Disc and bone degenerative changes are present. IMPRESSION: Patchy ground-glass opacities are scattered in the lung parenchyma without a large dense consolidations seen. Pattern is nonspecific and can be seen with both bacterial and viral pneumonias including COVID-19. No hydronephrosis or obstructing calculus. No urinary bladder abnormality seen. Isodense masses and p yelonephritis are not excluded on a noncontrast study. Cholelithiasis without gallbladder wall thicke narciso, distention or pericholecystic fluid. No biliary tree dilatation. Gastric tube tip terminates in the distal esophagus. No acute GI abnormality identified. CT abdomen and pelvis imaging shows no significant or suspicious finding.
--- NOTE | 2020-06-08 18:32 | P.HP ---
Certification for Inpatient Patient admitted to: Inpatient With expected LOS: >2 Midnights Practitioner: I am a practitioner with admitting privileges, knowledge of patient current condition, hospital course, and medical plan of care. Services: Services provided to patient in accordance with Admission requirements found in Title 42 Section 412.3 of the Code of Federal Regulations Patient History Date of Service: 06/08/20 Reason for admission: COVID-19 pneumona, strep A, FTT History of Present Illness: HPI is limited - patient is nonverbal due to trach, and grandson with limited knowledge of everything. 80yo male, PMH: HTN, hypothyroid, h/o neck cancer s/p resection and trach several years ago, presents to ED due to 1 week of lethargy, altered mental status, generalized weakness, and some shortness of breath. He also reports patient has been coughing as well. Unable to obtain the review of systems. Patient was noted to be hypotensive 90/58, pulse: 56, respirations 22, SpO2: 96% on RA. Patient appeared dehydrated and was given normal saline bolus with improvement of BP and cognition. CT pending Grandson reports patient is normally able to care for himself, walk around, understand questions answered appropriately but is nonverbal. Labwork notable for elevated D-dimer, elevated creatinine, significantly elevated ferritin at 2222, elevated T bili, elevated LFTs, elevated CRP , elevated pro-calcitonin. Allergies No Known Allergies Allergy (Unverified 11/04/12 18:55) Home Medications: Isoniazid [Isoniazid*] 300 mg PO DAILY 01/04/13 Levothyroxine [Synthroid*] 112 mcg PO [id number] 01/04/13 NIFEdipine [Procardia*] 10 mg PO DAILY 01/04/13 Pravastatin [Pravachol*] 40 mg PO DAILY 01/04/13 Pyridoxine [Vitamin B-6*] 50 mg PO DAILY 01/04/13 gemfibroziL [Lopid*] 600 mg PO BID 01/04/13 Aspirin Tab [Jovi Aspirin*] 325 mg PO DAILY #30 tab 01/05/13 Metoprolol Tartrate [Lopressor*] 25 mg PO BID #60 tab 01/05/13 - Past Medical/Surgical History Diabetic: No -: hypertension -: thyroid cancer -: trach - Family History Family History: Reviewed- Non-Contributory - Social History Alcohol use: No CD- Drugs: No Caffeine use: Yes Place of Residence: Home Review of Systems is unable to be obtained Physical Examination - Physical Exam General: Other (nonverbal, seems to understand somewhat, does not seem to answer appropriately, hard of hearing) HEENT: Sclerae nonicteric Respiratory: Crackles/rales (bilaterally at bases, + cough, 98% on RA) Cardiovascular: No edema, Regular rate/rhythm Gastrointestinal: Soft and benign, No tenderness Musculoskeletal: No tenderness Integumentary: No rashes Neurological: Other (moving all extremities, confused) Urinary: Michaud catheter (placed in ED) - Studies Laboratory Data (last 24 hrs) 06/08/20 13:48: PT 12.4, INR 1.05, APTT 26.0 06/08/20 13:48: WBC 6.9, Hgb 13.7, Hct 41.4, Plt Count 94 L 06/08/20 13:48: Sodium 139, Potassium 4.4, BUN 80 H, Creatinine 2.45 H, Glucose 113 H, Total Bilirubin 1.6 H, AST 352 H*, ALT 263 H, Alkaline Phosphatase 125 H, Lipase 243 Microbiology Data (last 24 hrs): 06/08/20 13:52 Throat Group A Streptococcus Rapid Screen - Final Assessment and Plan - Advance Directives Does patient have a Living Will: No Does patient have a Durable POA for Healthcare: No Physician Review Additional Text: Metabolic encephalopathy COVID-19 Grp A strep + Decreased p.o. intake. Acute kidney injury Hypertension Hypothyroidism trach -significantly elevated ferritin -start Solumedrol 80 BID, Rocephin for Grp A strep -IVF @100ml/hr -SELVIN likely prerenal /dehydration, pt appeared dry on exam and family reported minimal PO intake -consult pulm -obtain home medications need to confirm, and restart as appropriate -monitor closely -f/u cultures -trend ferritin/CRP -f/u CT VTE: lovenox Code: full - discussed with patient/grandson/son Dispo: anticipate hospitalization > 48hrs Time Spent Managing Pts Care (In Minutes): 70
--- NOTE | 2020-06-08 20:57 | RAD REPORT ---
EXAM DESCRIPTION: US - Abdomen Exam Limited - 06/08/2020 7:33 pm CLINICAL HISTORY: cholelithiasis, elevated bili COMPARISON: Chest Abd Pelvis Wo Con dated 06/08/2020 FINDINGS: Several small gallstones are present near the neck of the gallbladder. No wall thickening or pericholecystic fluid seen. No common duct stone or biliary tree dilatation identified. IMPRESSION: Several 10 millimeter or less sized gallstones are present in the neck of the gallbladde r. No wall thickening or pericholecystic fluid. No biliary tree abnormality.
[2020-06-08 21:09] VITALS: BMI 23.8
[2020-06-08] MEDS ORDERED: CEFTRIAXONE 2,000 MG in NA CHLORIDE 0.9% 100 ML IV SCH (21:38)
[2020-06-08] MEDS: NA CHLORIDE 0.9% 1,000 ML IV SCH (21:52)
[2020-06-08] MEDS: METHYLPREDNISOLONE 125 MG INJ IV SCH (21:52)
[2020-06-08] MEDS: CEFTRIAXONE/SWI 1gm 1 GM/10 ML SYR IV SCH ×5 (21:52→22:39)
[2020-06-09] MEDS: NA CHLORIDE 0.9% 1,000 ML IV SCH ×3 (05:32→17:38)
[2020-06-09 06:21] LABS: Absolute Lymphocytes (CBC) 0.6 K/uL (0.7-4.9); Basophils % 0.1 % (0-1.3); Hematocrit 37.6 % (39.6-49.0); Lymphocytes % 12.1 % (15.3-44.8); MPV 9.8 fL (7.6-11.3); RBC Red Blood Cell Count 4.35 M/uL (4.33-5.43)
[2020-06-09 07:17] LABS: Albumin 2.5 g/dL (3.4-5.0); C-Reactive Protein 70.6 mg/L (<3.00); Ferritin 1776.1 ng/mL (26-388); Magnesium 2.1 mg/dL (1.8-2.4); Phosphorus 3.1 mg/dL (2.5-4.9); Potassium 4.1 mmol/L (3.5-5.1); Protein, Total 6.9 g/dL (6.4-8.2)
[2020-06-09] MEDS ORDERED: ENOXAPARIN 30 MG/0.3 ML SQ SCH (09:00)
[2020-06-09] MEDS ORDERED: ENOXAPARIN 40 MG/0.4 ML SQ SCH (09:00)
[2020-06-09] MEDS: METHYLPREDNISOLONE 125 MG INJ IV SCH ×2 (09:32→21:58)
--- NOTE | 2020-06-09 20:15 | P.PN ---
Subjective Date of Service: 06/09/20 Chief Complaint: COVID-19 pneumona, strep A, FTT Subjective: Improving (significantly improved. Patient feels much better ~60% better. has appetite back. AAOx3. denies chest pain, breathing more comfortably, denies abdominal pain, no nausea/vomiting, no diarrhea) Review of Systems 10-point ROS is otherwise unremarkable Physical Examination - Vital Signs Temperature: 97.1 F Blood Pressure: 122/69 Pulse: 101 Respirations: 34 Pulse Ox (%): 89 - Studies Microbiology Data (last 24 hrs): 06/08/20 13:52 Throat Group A Streptococcus Rapid Screen - Final Assessment & Plan Physician Review Additional Text: Physical Exam: Gen: NAD HEENT: normal conjunctiva, trach stoma without evidence of infection CV: RRR, no murmur Pulm: nonlabored on RA Abd: soft, NTND Ext: no edema, no rash Neuro: AAOx3, moving all extremities Problem List: Metabolic encephalopathy COVID-19 Grp A strep + Decreased p.o. intake. Acute kidney injury Hypertension Hypothyroidism trach -ferritin improving -cont Solumedrol 80 BID, Rocephin for Grp A strep (unclear if colonized, given trach, vs acute infection) -IVF @100ml/hr -SELVIN likely prerenal /dehydration, pt appeared dry on exam and family reported minimal PO intake. renal function improved significantly with IVF -pulm consulted -f/u cultures -trend ferritin/CRP VTE: lovenox Code: full - discussed with patient/grandson/son Dispo: anticipate dc home in 24-48hrs, PT/OT eval, may benefit from further PT Time Spent Managing Pts Care (In Minutes): 35
[2020-06-09] MEDS ORDERED: CEFTRIAXONE 1 GM/NS 50 ML 1 GM/50 ML BAG IV SCH (22:33)
[2020-06-09] MEDS: CEFTRIAXONE/SWI 1gm 1 GM/10 ML SYR IV SCH (23:31)
[2020-06-10] MEDS: NA CHLORIDE 0.9% 1,000 ML IV SCH ×2 (03:34→13:38)
[2020-06-10] MEDS: METHYLPREDNISOLONE 125 MG INJ IV SCH ×2 (08:14→20:24)
[2020-06-10] MEDS: LEVOTHYROXINE SOD 0.075 MG TAB PO SCH (08:14)
[2020-06-10] MEDS: METOPROLOL TAR 25 MG TAB PO SCH (08:14)
[2020-06-10] MEDS: ENOXAPARIN 30 MG/0.3 ML SQ SCH (08:15)
[2020-06-10 09:40] LABS: Absolute Lymphocytes (CBC) 0.4 K/uL (0.7-4.9); Basophils % 0.1 % (0-1.3); Hematocrit 35.7 % (39.6-49.0); Lymphocytes % 3.1 % (15.3-44.8); RBC Red Blood Cell Count 4.15 M/uL (4.33-5.43)
[2020-06-10 10:48] LABS: Albumin 2.3 g/dL (3.4-5.0); Bilirubin Total 0.7 mg/dL (0.2-1.0); C-Reactive Protein 27.3 mg/L (<3.00); Ferritin 1096.1 ng/mL (26-388); Magnesium 1.9 mg/dL (1.8-2.4); Potassium 3.5 mmol/L (3.5-5.1); Protein, Total 6.4 g/dL (6.4-8.2)
--- NOTE | 2020-06-10 19:57 | P.PN ---
Subjective Date of Service: 06/10/20 Chief Complaint: COVID-19 pneumona, strep A, FTT Subjective: No new changes (feeling better, reports some slight SOB still, noted had some when walking. Has not had pulse ox checked with ambulation. Eating ok, no pain) Review of Systems 10-point ROS is otherwise unremarkable Physical Examination - Vital Signs Temperature: 96.3 F Blood Pressure: 139/64 Pulse: 52 Respirations: 20 Pulse Ox (%): 93 Assessment & Plan Physician Review Additional Text: Physical Exam: Gen: NAD HEENT: normal conjunctiva, trach stoma without evidence of infection CV: RRR, no murmur Pulm: nonlabored on RA, crackles at bases. Abd: soft, NTND Ext: no edema, no rash Neuro: AAOx3, moving all extremities Problem List: Metabolic encephalopathy COVID-19 Grp A strep + Decreased p.o. intake. Acute kidney injury Hypertension Hypothyroidism trach -ferritin improving, was >2000 on admission -cont Solumedrol 80 BID, Rocephin for Grp A strep (unclear if colonized, given trach, vs acute infection) -tolerating diet. SELVIN resolving, continue IVF and dc later today -SELVIN due to prerenal /dehydration, pt appeared dry on exam and family reported minimal PO intake -pulm consulted -f/u cultures -remove calderon, voiding trial VTE: lovenox Code: full - discussed with patient/grandson/son Dispo: anticipate dc home in next 24 hrs. his SpO2 fluctuates from 90-97 on RA when laying in bed, needs ambulatory SpO2 eval Time Spent Managing Pts Care (In Minutes): 35
[2020-06-10] MEDS: CEFTRIAXONE/SWI 1gm 1 GM/10 ML SYR IV SCH (23:45)
[2020-06-11 04:59] LABS: Albumin 2.4 g/dL (3.4-5.0); Bilirubin Total 0.6 mg/dL (0.2-1.0); C-Reactive Protein 15.1 mg/L (<3.00); Magnesium 1.8 mg/dL (1.8-2.4); Potassium 3.8 mmol/L (3.5-5.1); Protein, Total 6.2 g/dL (6.4-8.2)
[2020-06-11] MEDS ORDERED: MAGNESIUM SULFATE 1 gm IVPB 1 GM/100 ML BAG IV ONE (06:25)
[2020-06-11] MEDS ORDERED: POTASSIUM CL SA 10 MEQ TAB PO ONE (09:00)
[2020-06-11] MEDS ORDERED: ALBUTEROL 2.5 MG/3 ML NEB SOL NEB SCH (09:45)
[2020-06-11] MEDS: LEVOTHYROXINE SOD 0.075 MG TAB PO SCH (09:47)
[2020-06-11] MEDS: METOPROLOL TAR 25 MG TAB PO SCH (09:47)
[2020-06-11] MEDS: ENOXAPARIN 30 MG/0.3 ML SQ SCH (09:48)
[2020-06-11] MEDS: METHYLPREDNISOLONE 125 MG INJ IV SCH (09:48)
--- NOTE | 2020-06-11 12:51 | RAD REPORT ---
EXAM DESCRIPTION: RAD - Chest Single View - 06/11/2020 12:45 pm CLINICAL HISTORY: dyspnea COMPARISON: Portable June 08 TECHNIQUE: AP portable chest image was obtained 06/11/2020 12:45 pm . FINDINGS: Interstitial opacification at the left base and minimally at the right base noted and not substantially different from comparison. Lower lung volumes on the current examination would account for the slightly accentuated appearance. No new lung parenchymal process seen. Heart and vasculature are normal. No measurable pleural effusion and no pneumothorax. No acute bony abnormality seen. No ac christiane aortic findings suspected. IMPRESSION: Bilateral interstitial and patchy alveolar opacification similar to June 08.
[2020-06-11 16:19] VITALS: BP 160/73; TEMP 96.6
--- NOTE | 2020-06-11 16:32 | P.DS ---
Admission Date: 06/08/20 Discharge Date: 06/11/20 Disposition: ROUTINE DISCHARGE Discharge Condition: GOOD Reason for Admission: COVID-19 pneumonia, strep A, FTT Procedures: CXR (06/08): Chronic interstitial pattern worse in the left lung base. CT Chest/Abd/Pelvis (06/08): : Patchy ground-glass opacities are scattered in the lung parenchyma without a large dense consolidations seen. Pattern is nonspecific and can be seen with both bacterial and viral pneumonias including COVID-19. No hydronephrosis or obstructing calculus. No urinary bladder abnormality seen. Isodense masses and pyelonephritis are not excluded on a noncontrast study. Cholelithiasis without gallbladder wall thickening, distention or pericholecystic fluid. No biliary tree dilatation. Gastric tube tip terminates in the distal esophagus. No acute GI abnormality identified. CT abdomen and pelvis imaging shows no significant or suspicious finding. Abd U/S (06/08): Several 10 millimeter or less sized gallstones are present in the neck of the gallbladder. No wall thickening or pericholecystic fluid. No biliary tree abnormality. CXR (06/11): Bilateral interstitial and patchy alveolar opacification similar to June 08. Problem List: Metabolic encephalopathy secondary to hypoxia / infection COVID-19 pneumonia Grp A strep + Decreased p.o. intake. Acute kidney injury Hypertension Hypothyroidism h/o laryngeal cancer, now s/p laryngectomy Brief History of Present Illness: HPI is limited - patient is nonverbal due to trach, and grandson with limited knowledge of everything. 80yo male, PMH: HTN, hypothyroid, h/o neck cancer s/p resection and trach several years ago, presents to ED due to 1 week of lethargy, altered mental status, generalized weakness, and some shortness of breath. He also reports patient has been coughing as well. Unable to obtain the review of systems. Patient was noted to be hypotensive 90/58, pulse: 56, respirations 22, SpO2: 96% on RA. Patient appeared dehydrated and was given normal saline bolus with improvement of BP and cognition. CT pending Grandson reports patient is normally able to care for himself, walk around, understand questions answered appropriately but is nonverbal. Labwork notable for elevated D-dimer, elevated creatinine, significantly elevated ferritin at 2222, elevated T bili, elevated LFTs, elevated CRP , elevated pro-calcitonin. Hospital Course: Patient was found to be COVID+ and strep A positive. He was treated for both with steroids and Antibiotics, respectively. It was unclear if acute infection of Grp A strep or patient is colonized given his laryngectomy. Patient has significant improvement in metabolic encephalopathy as well as inflammatory markers. He remained stable on room air, was tolerating PO diet, and working with physical therapy. On day of discharge he reported feeling much better, near his baseline. He was noted to have a weak cough and had some mild difficulty clearing his throat, however he and his family informed me this was typical for him at home, and he was eventually able to clear his throat. His SELVIN resolved with IVF hydration. Of note, patient has remote h/o laryngeal cancer and had laryngectomy many years ago. He was supposed to f/u with ENT but was lost to follow up. He uses a rubber hose tied off on one end to insert into his esophagus, this was given to him by his ENT "to use for emergencies". He was strongly advised to f/u with ENT. He was discharged with Omnicef, prednisone, and aspirin to treat his COVID-19 pneumonia and Strep A. Vital Signs/Physical Exam: Temp Pulse Resp BP Pulse Ox 96.6 F L 58 20 160/73 H 97 06/11/20 16:00 06/11/20 16:00 06/11/20 16:00 06/11/20 16:00 06/11/20 16:00 General: Alert, Oriented x3 HEENT: Sclerae nonicteric Neck: Other (laryngectomy stoma, no evidence of infection) Respiratory: Clear to auscultation bilaterally, Normal air movement Cardiovascular: No edema, Regular rate/rhythm Gastrointestinal: Soft and benign, Non-distended, No tenderness Musculoskeletal: No tenderness Neurological: Normal strength at 5/5 x4 extr, Normal affect Laboratory Data at Discharge: WBC 14.2 K/uL (4.3-10.9) H D 06/10/20 09:30 Hgb 11.7 g/dL (13.6-17.9) L 06/10/20 09:30 Hct 35.7 % (39.6-49.0) L 06/10/20 09:30 Plt Count 139 K/uL (152-406) L D 06/10/20 09:30 PT 12.4 SECONDS (9.5-12.5) 06/08/20 13:48 INR 1.05 06/08/20 13:48 APTT 26.0 SECONDS (24.3-36.9) 06/08/20 13:48 Sodium 149 mmol/L (136-145) H 06/11/20 03:30 Potassium 3.8 mmol/L (3.5-5.1) 06/11/20 03:30 BUN 50 mg/dL (7-18) H 06/11/20 03:30 Creatinine 1.16 mg/dL (0.55-1.3) 06/11/20 03:30 Glucose 136 mg/dL (74-106) H 06/11/20 03:30 Phosphorus 3.1 mg/dL (2.5-4.9) 06/09/20 06:08 Magnesium 1.8 mg/dL (1.8-2.4) 06/11/20 03:30 Total Bilirubin 0.6 mg/dL (0.2-1.0) 06/11/20 03:30 AST 151 U/L (15-37) H 06/11/20 03:30 ALT 177 U/L (12-78) H 06/11/20 03:30 Alkaline Phosphatase 98 U/L (45-117) 06/11/20 03:30 Lipase 243 U/L (73-393) 06/08/20 13:48 Home Medications: Levothyroxine [Synthroid*] 1 tab PO DAILY 06/09/20 Losartan Potassium 1 tab PO DAILY 06/09/20 Lovastatin 1 tab PO DAILY 06/09/20 Metoprolol Tartrate 1 tab PO DAILY 06/09/20 hydroCHLOROthiazide [Hydrochlorothiazide] 1 tab PO DAILY 06/09/20 Aspirin [Aspirin EC 81 MG] 81 mg PO DAILY 30 Days #30 tablet. 06/11/20 Cefdinir [Omnicef] 300 mg PO BID 7 Days #14 capsule 06/11/20 predniSONE [Deltasone] 20 mg PO SEECOM 14 Days #21 tab 06/11/20 New Medications: Aspirin [Aspirin EC 81 MG] 81 mg PO DAILY 30 Days #30 tablet. Cefdinir [Omnicef] 300 mg PO BID 7 Days #14 capsule predniSONE [Deltasone] 20 mg PO SEECOM 14 Days #21 tab Patient Discharge Instructions: you were found to have COVID-19 pneumonia and dehydration. You were treated with IV fluids and steroids. Your throat culture grew Group A strep and you were treated with antibiotics. You are discharged with 2 weeks of steroids (prednisone), aspirin for 30 days, and cefdinir (antibiotic) for 7 days. You were unsteady on your feet and should use a walker when you get around until you regain your balance/strength. Stop taking your losartan for the next few days, check your blood pressure, and then restart when your blood pressure is staying high > 140/90 Diet: AHA Activity: Fall precautions (use a walker) Followup: Unknown,U [Primary Care Provider] - Time spent managing pt's care (in minutes): 40
[2020-06-11 17:16] VITALS: O2SAT 97
[2020-06-11] MEDS ORDERED: ENSURE ENLIVE 237 ML CAN PO SCH (21:00)
[2020-06-11] MEDS ORDERED: JUVEN PACKET PO SCH (21:00)
== END 2020-06-11 17:25 | disposition home or self-care (01) | DRG 177 ==
LOC: ER 12:46 → ERHOLD 18:29 → 4TH 20:31
PROVIDERS: ADMIT Hospitalist; ATTEND Hospitalist
DX: U07.1 COVID-19 (principal); J12.82 Pneumonia due to coronavirus disease 2019; G93.41 Metabolic encephalopathy; N17.9 Acute kidney failure, unspecified; E86.0 Dehydration; I10 Essential (primary) hypertension; E03.9 Hypothyroidism, unspecified; B95.0 Streptococcus, group A, as the cause of diseases classified elsewhere; Z79.890 Hormone replacement therapy; Z93.0 Tracheostomy status; Z79.82 Long term (current) use of aspirin; Z79.899 Other long term (current) drug therapy; Z85.850 Personal history of malignant neoplasm of thyroid; Z79.52 Long term (current) use of systemic steroids
CPT/HCPCS: 0240U; 36415; 51702; 71045; 71250; 74176; 76705; 80048; 80053; 80076; 81003; 81015; 82728; 83605; 83690; 83735; 83880; 84100; 84145; 84484; 85025; 85379; 85610; 85730; 86140; 87040; 87081; 93005; 94760; 96365; 97112; 97116; 97161; 99285; J0696; J1650; J2930; J3475; J7030

== ENCOUNTER 2022-12-31 15:58 | Emergency (ER) | payer OTHER, SELFPAY ==
--- OUTSIDE RECORDS SUMMARY | 2022-12-31 16:08 | XMS REPORT | Continuity of Care Document ---
:1940 Author Organization [facility] t Address [address] [facility]. [address] [place] [address] Care Team Providers Name Role Phone PCP, PATIENT DOES NOT HAVE A Primary Care Physician UnavailSALLY Davey Attending Clinician Unavailable Doctor Unassigned, [place] Attending Clinician Unavailable Hortencia CORONADO, Lou Lozoya Attending Clinician Unavailable Gael PHD, Obdulia Mejia Attending Clinician Leonela TRAORE, Ana Attending Clinician Problems Condition Condition Condition Status Onset Resolution Last Treating Co mments Source Name Details Category Date Date Treatment Clinician Date Communicat Communicat Disease Active Overview : Univers ion ion 09-21 Formattin ity of impairment impairment 00:00: g of this note Medical might be Branch different from the original. Added automatic ally from request for surgery [id number] Aphonia Aphonia Disease Active Overview: Univ ers 09-21 Formattin ity of 00:00: g of this note Medical might be Branch different from the original. Added automatic ally from request for surgery [id number] Communicat Communicat Disease Active Overview : Univers ion ion 09-21 Added ity of impairment impairment 00:00: automatic 00 ally from Medical request Branch for surgery [id number] S/P S/P Disease Active Overview: Univer s laryngecto laryngecto 09-21 Formattin ity of my my 00:00: g of this note Medical might be Branch different from the original. 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 ICD10 Diagnosis Term [employer] History of History of Disease Active 2011-05 Overview : Univers throat throat 0 Formattin ity of cancer cancer 00:00: g of this note Medical might be Branch different from the original. 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[place] and bilateral neck dissectio n at [facility] 2005 Other Other Disease Active 2008-05 Univers Voice and Voice and 0-04 ity of Resonance Resonance [place] Disorders 00 [facility] Other Other Disease Active 2008-05 Univers Voice and Voice and 0-04 ity of Resonance Resonance 00:[place] Disorders 00 [facility] Malignant Malignant Disease Active Uni vers neoplasm neoplasm -08 ity of of of 00:00: [place] laryngeal laryngeal 00 [facility] cartilages cartilages Br anch Allergies, Adverse Reactions, Alerts Allergy Allergy Status Severity Reaction(s) Onset Inactive Treating Comm ents Source Name Type Date Date Clinician NO KNOWN Drug Active Univers ALLERGIE Class 2-20 ity of S 00:00: [place] 00 Medical Branch No Known Propensi Active Univer s Allergie ty to 2-20 ity of s adverse 00:00: [place] reaction 00 Medical s Branch Social History Social Habit Start Date Stop Date Quantity Comments Source Alcohol intake 2018-10-07 2018-10-07 Current University of 00:00:00 00:00:00 non-drinker of [facility] alcohol Branch (finding) Tobacco use and 2018-10-05 2018-10-05 Smokeless Universit y of exposure 00:00:00 00:00:[address] tobacco non-[address] [facility] d[facility] [place] Cigarettes smoked 2018-10-05 2018-10-05 Univers ity of current (pack per 00:00:00 00:00:00 [facility] ) - Reported Branch Cigarette 2018-10-05 2018-10-05 University of pack-years 00:00:00 00:00:00 [facility] History of tobacco 1992-03-16 Cigarette Smoker University of use 00:00:00 [facility] Sex Assigned At [birth year] [facility] y of 00:00:00 00:00:00 [facility] Smoking Status Start Date Stop Date Source Ex-smoker 2018-10-05 00:00:00 2018-10-05 00:00:00 [facility] Medications Ordered Filled Start Stop Current Ordering Indication Dosage Frequency Signature Comments Components Source Medication Medication Date Date Medication? Clinician (SIG) Name Name hydrochloro 2-0 No 1mg thiazide 6-01 12.5 mg 00:00: tablet 00 metoprolol 2022-0 No 1mg tartrate 25 6-01 mg tablet 00:00: 00 Dose 2-0 No Unknown 6-01 00:00: 00 lovastatin 2022-0 No 1mg 20 mg 6-01 tablet 00:00: 00 levothyroxi 2022-0 No 1mcg ne 75 mcg 6-01 tablet 00:00: 00 hydrochloro 2022-0 No 1mg thiazide 6-01 12.5 mg 00:00: tablet 00 metoprolol 2022-0 No 1mg tartrate 25 6-01 mg tablet 00:00: 00 Dose 2022-0 No Unknown 6-01 00:00: 00 lovastatin 2022-0 No 1mg 20 mg 6-01 tablet 00:00: 00 levothyroxi 2022-0 No 1mcg ne 75 mcg 6-01 tablet 00:00: 00 Dose 2022-0 No Unknown 3-16 00:00: 00 Dose 2022-0 No Unknown 3-16 00:00: 00 Dose 2022-0 No Unknown 3-16 00:00: 00 Dose 2022-0 No Unknown 3-16 00:00: 00 Dose 2022-0 No Unknown 3-16 00:00: 00 Dose 2022-0 No Unknown 3-16 00:00: 00 levothyroxi 2022-0 No 1mcg ne 75 mcg 1-04 tablet 00:00: 00 levothyroxi 2022-0 No 1mcg ne 75 mcg 1-04 tablet 00:00: 00 levothyroxi 2022-0 No 1mcg ne 75 mcg 1-04 tablet 00:00: 00 levothyroxi 2022-0 No 1mcg ne 75 mcg 1-04 tablet 00:00: 00 losartan 50 2021-1 No 1mg mg tablet 2-20 00:00: 00 hydrochloro 2021-1 No 1mg thiazide 2-20 12.5 mg 00:00: tablet 00 metoprolol 2021-1 No 1mg tartrate 25 2-20 mg tablet 00:00: 00 lovastatin 2021-1 No 1mg 20 mg 2-20 tablet 00:00: 00 levothyroxi 2021-1 No 1mcg ne 75 mcg 2-20 tablet 00:00: 00 losartan 50 2021-1 No 1mg mg tablet 2-20 00:00: 00 hydrochloro 2021-1 No 1mg thiazide 2-20 12.5 mg 00:00: tablet 00 metoprolol 2021-1 No 1mg tartrate 25 2-20 mg tablet 00:00: 00 lovastatin 2021-1 No 1mg 20 mg 2-20 tablet 00:00: 00 levothyroxi 2021-1 No 1mcg ne 75 mcg 2-20 tablet 00:00: 00 losartan 50 2021-0 No 1mg mg tablet 9-29 00:00: 00 hydrochloro 2021-0 No 1mg thiazide 9-29 12.5 mg 00:00: tablet 00 metoprolol 2021-0 No 1mg tartrate 25 9-29 mg tablet 00:00: 00 lovastatin 2021-0 No 1mg 20 mg 9-29 tablet 00:00: 00 levothyroxi 2021-0 No 1mcg ne 75 mcg 9-29 tablet 00:00: 00 levothyroxi 2021-0 No 1mcg ne 75 mcg 9-29 tablet 00:00: 00 losartan 50 1-0 No 1mg mg tablet 02-13 00:00: 00 hydrochloro 2021-0 No 1mg thiazide 9-29 12.5 mg 00:00: tablet 00 metoprolol 2021-0 No 1mg tartrate 25 9-29 mg tablet 00:00: 00 lovastatin 2021-0 No 1mg 20 mg 9-29 tablet 00:00: 00 levothyroxi 2021-0 No 1mcg ne 75 mcg 9- tablet 00:00: 00 levothyroxi 2021-0 No 1mcg ne 75 mcg 9- tablet 00:00: 00 Polytrim 2021-0 No 21 10,000 7-26 mg/mL unit-1 00:00: mg/mL eye 00 drops prednisone 1-0 No 1mg 10 mg 7- tablet 00:00: 00 cetirizine 2021-0 No 1mg 10 mg 7-26 tablet 00:00: 00 Polytrim 2021-0 No 21 10,000 7-26 mg/mL unit-1 00:00: mg/mL eye 00 drops prednisone 1-0 No 1mg 10 mg 7- tablet 00:00: 00 cetirizine 2021-0 No 1mg 10 mg 7-26 tablet 00:00: 00 levothyroxi 2021-0 No 1mcg ne 75 mcg 7- tablet 00:00: 00 levothyroxi 2021-0 No 1mcg ne 75 mcg 7- tablet 00:00: 00 metoprolol 2021-0 No 1mg tartrate 25 7-01 mg tablet 00:00: 00 hydrochloro 2021-0 No 1mg thiazide 7-01 12.5 mg 00:00: tablet 00 Dose 2021-0 No Unknown 7- 00:00: 00 lovastatin 2021-0 No 1mg 20 mg 7-01 tablet 00:00: 00 levothyroxi 2021-0 No 1mcg ne 75 mcg 7- tablet 00:00: 00 metoprolol 2021-0 No 1mg tartrate 25 7-01 mg tablet 00:00: 00 hydrochloro 2021-0 No 1mg thiazide 7-01 12.5 mg 00:00: tablet 00 Dose 2021-0 No Unknown 7- 00:00: 00 lovastatin 2021-0 No 1mg 20 mg 7-01 tablet 00:00: 00 levothyroxi 2020-0 No 1mcg ne 75 mcg 7-01 tablet 00:00: 00 Dose 2020-0 No Unknown 5-07 00:00: 00 azithromyci 2020-0 No 1mg n 250 mg 5-07 tablet 00:00: 00 albuterol 2020-0 No 3/3 mL sulfate 2.5 5-07 (0.083 mg/3 mL 00:00: %) (0.083 %) 00 solution for nebulizatio n Dose 2020-0 No Unknown 5-07 00:00: 00 azithromyci 2020-0 No 1mg n 250 mg 5-07 tablet 00:00: 00 albuterol 2020-0 No 3/3 mL sulfate 2.5 5-07 (0.083 mg/3 mL 00:00: %) (0.083 %) 00 solution for nebulizatio n Dose 2019-1 No Unknown 2-14 00:00: 00 hydrochloro 2019-1 No 1mg thiazide 2-14 12.5 mg 00:00: tablet 00 metoprolol 2019-1 No 1mg tartrate 25 2-14 mg tablet 00:00: 00 lovastatin 2019-1 No 1mg 20 mg 2-14 tablet 00:00: 00 levothyroxi 2019-1 No 1mcg ne 75 mcg 2-14 tablet 00:00: 00 Dose 2020-1 No Unknown 2-14 00:00: 00 hydrochloro 2019-1 No 1mg thiazide 2-14 12.5 mg 00:00: tablet 00 metoprolol 2019-1 No 1mg tartrate 25 2-14 mg tablet 00:00: 00 lovastatin 2019-1 No 1mg 20 mg 2-14 tablet 00:00: 00 levothyroxi 2019-1 No 1mcg ne 75 mcg 2-14 tablet 00:00: 00 losartan 50 2020-0 No 1mg mg tablet 6-24 00:00: 00 hydrochloro 2020-0 No 1mg thiazide 6-24 12.5 mg 00:00: tablet 00 metoprolol 2020-0 No 1mg tartrate 25 6-24 mg tablet 00:00: 00 lovastatin 2020-0 No 1mg 20 mg 6-24 tablet 00:00: 00 levothyroxi 2020-0 No 1mcg ne 75 mcg 6-24 tablet 00:00: 00 losartan 50 2020-0 No 1mg mg tablet 6-24 00:00: 00 hydrochloro 2020-0 No 1mg thiazide 6-24 12.5 mg 00:00: tablet 00 metoprolol 2020-0 No 1mg tartrate 25 6-24 mg tablet 00:00: 00 lovastatin 2020-0 No 1mg 20 mg 6-24 tablet 00:00: 00 levothyroxi 2020-0 No 1mcg ne 75 mcg 6-24 tablet 00:00: 00 metoprolol 2019-1 No 1mg tartrate 25 2-31 mg tablet 00:00: 00 losartan 50 2019-1 No 1mg mg tablet 2-31 00:00: 00 hydrochloro 2019-1 No 1mg thiazide 2-31 12.5 mg 00:00: tablet 00 lovastatin 2019-1 No 1mg 20 mg 2-31 tablet 00:00: 00 levothyroxi 2019-1 No 1mcg ne 75 mcg 2-31 tablet 00:00: 00 metoprolol 2019-1 No 1mg tartrate 25 2-31 mg tablet 00:00: 00 losartan 50 2019-1 No 1mg mg tablet 2-31 00:00: 00 hydrochloro 2019-1 No 1mg thiazide 2-31 12.5 mg 00:00: tablet 00 lovastatin 2019-1 No 1mg 20 mg 2-31 tablet 00:00: 00 levothyroxi 2019-1 No 1mcg ne 75 mcg 2-31 tablet 00:00: 00 metoprolol 2019-0 No 1mg tartrate 25 9-26 mg tablet 00:00: 00 loratadine 2019-0 No 5mg 10 mg 9-26 tablet 00:00: 00 lovastatin 2019-0 No 1mg 20 mg 9-26 tablet 00:00: 00 levothyroxi 2019-0 No 1mcg ne 75 mcg 9-26 tablet 00:00: 00 Vitamin D2 2019-0 No 1unit 50,000 unit 9-26 capsule 00:00: 00 metoprolol 2019-0 No 1mg tartrate 25 9-26 mg tablet 00:00: 00 loratadine 2019-0 No 5mg 10 mg 9-26 tablet 00:00: 00 lovastatin 2019-0 No 1mg 20 mg 9-26 tablet 00:00: 00 levothyroxi 2019-0 No 1mcg ne 75 mcg 9-26 tablet 00:00: 00 Vitamin D2 2019-0 No 1unit 50,000 unit 9-26 capsule 00:00: 00 Vitamin D2 2019-0 No 1unit 50,000 unit 6-20 capsule 00:00: 00 Vitamin D2 2019-0 No 1unit 50,000 unit 6-20 capsule 00:00: 00 loratadine 2019-0 No 5mg 10 mg 6-19 tablet 00:00: 00 metoprolol 2019-0 No 1mg tartrate 25 6-19 mg tablet 00:00: 00 lovastatin 2019-0 No 1mg 20 mg 6-19 tablet 00:00: 00 levothyroxi 2019-0 No 1mcg ne 75 mcg 6-19 tablet 00:00: 00 albuterol 2019-0 No 3/3 mL sulfate 2.5 6-19 (0.083 mg/3 mL 00:00: %) (0.083 %) 00 solution for nebulizatio n loratadine 2019-0 No 5mg 10 mg 6-19 tablet 00:00: 00 metoprolol 2019-0 No 1mg tartrate 25 6-19 mg tablet 00:00: 00 lovastatin 2019-0 No 1mg 20 mg 6-19 tablet 00:00: 00 levothyroxi 2019-0 No 1mcg ne 75 mcg 6-19 tablet 00:00: 00 albuterol 2019-0 No 3/3 mL sulfate 2.5 6-19 (0.083 mg/3 mL 00:00: %) (0.083 %) 00 solution for nebulizatio n prednisone 2019-0 No 1mg 20 mg 5-29 tablet 00:00: 00 loratadine 2019-0 No 5mg 10 mg 5-29 tablet 00:00: 00 albuterol 2019-0 No 3/3 mL sulfate 2.5 5-29 (0.083 mg/3 mL 00:00: %) (0.083 %) 00 solution for nebulizatio n prednisone 2019-0 No 1mg 20 mg 5-29 tablet 00:00: 00 loratadine 2019-0 No 5mg 10 mg 5-29 tablet 00:00: 00 albuterol 2019-0 No 3/3 mL sulfate 2.5 5-29 (0.083 mg/3 mL 00:00: %) (0.083 %) 00 solution for nebulizatio n gemfibrozil 2018-0 Yes 600mg Take 600 U nivers (LOPID) 600 5-22 mg by ity of mg tablet 23:54: mouth 2 [place] [address] ([facility]) Medical times [place] daily before breakfast and dinner. metoprolol Yes 25mg Take 25 mg U nivers tartrate 5-22 by mouth ity of (LOPRESSOR) 23:54: [place]. [place] 25 mg 46 Medical tablet Branch pravastatin Yes 40mg Take 40 mg Univers (PRAVACHOL) 5-22 by mouth ity of 40 mg 23:54: at [place] [address] bedtime. Medical Branch metFORMIN Yes 500mg Take 500 Uni vers (GLUCOPHAGE 5-22 mg by ity of ) 500 mg 23:54: mouth 2 [place] [address] (two) Medical times [place] daily with meals. aspirin Yes 81mg Take 81 mg Univ ers (ASPIRIN 5-22 by mouth ity of LOW DOSE) 23:54: daily. [place] 81 mg EC Medical tablet Branch NIFEdipine Yes 10mg Take 10 mg U nivers (ADALAT) 10 5-22 by mouth ity of mg capsule 23:54: daily. [place] [address] Medical Branch Levothyroxi 0 Yes 112ug Take 112 U nivers ne 5-22 mcg by ity of (TIROSINT) 23:54: mouth. [place] 100 mcg Cap Medical Branch gemfibrozil Yes 600mg Take 600 U nivers (LOPID) 600 5-22 mg by ity of mg tablet 23:54: mouth 2 [place] [address] ([facility]) Medical times [place] daily before breakfast and dinner. metoprolol Yes 25mg Take 25 mg U nivers tartrate 5-22 by mouth ity of (LOPRESSOR) 23:54: daily. [place] 25 mg 46 Medical tablet Branch pravastatin 0 Yes 40mg Take 40 mg Univers (PRAVACHOL) 5-22 by mouth ity of 40 mg 23:54: at [place] [address] bedtime. Medical Branch metFORMIN Yes 500mg Take 500 Uni vers (GLUCOPHAGE 5-22 mg by ity of ) 500 mg 23:54: mouth 2 [facility] 46 (two) Medical times [place] daily with meals. aspirin 2019-0 Yes 81mg Take 81 mg Univ ers (ASPIRIN 5-22 by mouth ity of LOW DOSE) 23:54: daily. [place] 81 mg EC 46 Medical tablet Branch NIFEdipine 2019-0 Yes 10mg Take 10 mg U nivers (ADALAT) 10 5-22 by mouth ity of mg capsule 23:54: daily. [address] Branch Levothyroxi 2019-0 Yes 112ug Take 112 U nivers ne 5-22 mcg by ity of (TIROSINT) 23:54: mouth. [place] 100 mcg Cap Medical Branch gemfibrozil 2019-0 Yes 600mg Take 600 U nivers (LOPID) 600 5-22 mg by ity of mg tablet 23:54: mouth 2 [place] [address] ([facility]) Medical times [place] daily before breakfast and dinner. metoprolol 20190 Yes 25mg Take 25 mg U nivers tartrate 5-22 by mouth ity of (LOPRESSOR) 23:54: daily. [facility] s 25 mg Medical tablet Branch pravastatin 0 Yes 40mg Take 40 mg Univers (PRAVACHOL) 5-22 by mouth ity of 40 mg 23:54: at [place] tablet bedtime. Medical Branch metFORMIN 20190 Yes 500mg Take 500 Uni vers (GLUCOPHAGE 5-22 mg by ity of ) 500 mg 23:54: mouth 2 [place] tablet 46 (two) Medical times [place] daily with meals. aspirin 2019-0 Yes 81mg Take 81 mg Univ ers (ASPIRIN 5-22 by mouth ity of LOW DOSE) 23:54: daily. [place] 81 mg EC 46 Medical tablet Branch NIFEdipine 2019-0 Yes 10mg Take 10 mg U nivers (ADALAT) 10 5-22 by mouth ity of mg capsule 23:54: daily. [place] [address] Medical Branch Levothyroxi 2019-0 Yes 112ug Take 112 U nivers ne 5-22 mcg by ity of (TIROSINT) 23:54: mouth. [place] 100 mcg Cap Medical Branch gemfibrozil 2019-0 Yes 600mg Take 600 U nivers (LOPID) 600 5-22 mg by ity of mg tablet 23:54: mouth 2 [place] [address] ([facility]) Medical times [place] daily before breakfast and dinner. metoprolol 2019-0 Yes 25mg Take 25 mg U nivers tartrate 5-22 by mouth ity of (LOPRESSOR) 23:54: [facility]. [facility] Medical tablet Branch pravastatin 0 Yes 40mg Take 40 mg Univers (PRAVACHOL) 5-22 by mouth ity of 40 mg 23:54: at [place] tablet 46 bedtime. Medical Branch metFORMIN 0 Yes 500mg Take 500 Uni vers (GLUCOPHAGE 5-22 mg by ity of ) 500 mg 23:54: mouth 2 [place] [address] (two) Medical times Branch daily with meals. aspirin 20190 Yes 81mg Take 81 mg Univ ers (ASPIRIN 5-22 by mouth ity of LOW DOSE) 23:54: daily. [place] 81 mg EC 46 Medical tablet Branch NIFEdipine 0 Yes 10mg Take 10 mg U nivers (ADALAT) 10 5-22 by mouth ity of mg capsule 23:54: daily. [address] Branch Levothyroxi 0 Yes 112ug Take 112 U nivers ne 5-22 mcg by ity of (TIROSINT) 23:54: mouth. [place] 100 mcg Cap Medical Branch gemfibrozil Yes 600mg Take 600 U nivers (LOPID) 600 5-22 mg by ity of mg tablet 23:54: mouth 2 [place] [address] ([facility]) Medical times [place] daily before breakfast and dinner. metoprolol 0 Yes 25mg Take 25 mg U nivers tartrate 5-22 by mouth ity of (LOPRESSOR) 23:54: daily. [facility] Medical tablet Branch pravastatin 0 Yes 40mg Take 40 mg Univers (PRAVACHOL) 5-22 by mouth ity of 40 mg 23:54: at [place] tablet 46 bedtime. Medical Branch metFORMIN 0 Yes 500mg Take 500 Uni vers (GLUCOPHAGE 5-22 mg by ity of ) 500 mg 23:54: mouth 2 [place] [address] (two) Medical times [place] daily with meals. aspirin 20190 Yes 81mg Take 81 mg Univ ers (ASPIRIN 5-22 by mouth ity of LOW DOSE) 23:54: daily. [place] 81 mg EC 46 Medical tablet Branch NIFEdipine 0 Yes 10mg Take 10 mg U nivers (ADALAT) 10 5-22 by mouth ity of mg capsule 23:54: daily. [address] Branch Levothyroxi 2019-0 Yes 112ug Take 112 U nivers ne 5-22 mcg by ity of (TIROSINT) 23:54: mouth. [place] 100 mcg Cap Medical Branch gemfibrozil 2018-0 Yes 600mg Take 600 U nivers (LOPID) 600 5-22 mg by ity of mg tablet 23:54: mouth 2 [place] [address] ([facility]) Medical times [place] daily before breakfast and dinner. metoprolol 0 Yes 25mg Take 25 mg U nivers tartrate 5-22 by mouth ity of (LOPRESSOR) 23:54: [place]. [place] 25 mg 46 Medical tablet Branch pravastatin 0 Yes 40mg Take 40 mg Univers (PRAVACHOL) 5-22 by mouth ity of 40 mg 23:54: at [place] [address] bedtime. Medical Branch metFORMIN 0 Yes 500mg Take 500 Uni vers (GLUCOPHAGE 5-22 mg by ity of ) 500 mg 23:54: mouth 2 [place] [address] (two) Medical times [place] daily with meals. aspirin Yes 81mg Take 81 mg Univ ers (ASPIRIN 5-22 by mouth ity of LOW DOSE) 23:54: daily. [place] 81 mg [facility] Medical tablet Branch NIFEdipine 0 Yes 10mg Take 10 mg U nivers (ADALAT) 10 5-22 by mouth ity of mg capsule 23:54: daily. [address] Levothyroxi 0 Yes 112ug Take 112 U nivers ne 5-22 mcg by ity of (TIROSINT) 23:54: mouth. [place] [address] Branch gemfibrozil 0 Yes 600mg Take 600 U nivers (LOPID) 600 5-22 mg by ity of mg tablet 23:54: mouth 2 [place] [address] ([facility]) Medical times [place] daily before breakfast and dinner. metoprolol 20190 Yes 25mg Take 25 mg U nivers tartrate 5-22 by mouth ity of (LOPRESSOR) 23:54: [place]. [place] 25 mg Medical tablet Branch pravastatin 0 Yes 40mg Take 40 mg Univers (PRAVACHOL) 5-22 by mouth ity of 40 mg 23:54: at [place] [address] bedtime. Medical Branch metFORMIN 0 Yes 500mg Take 500 Uni vers (GLUCOPHAGE 5-22 mg by ity of ) 500 mg 23:54: mouth 2 [facility] 46 (two) Medical times [place] daily with meals. aspirin 2019-0 Yes 81mg Take 81 mg Univ ers (ASPIRIN 5-22 by mouth ity of LOW DOSE) 23:54: daily. [place] 81 mg EC 46 Medical tablet Branch NIFEdipine 2019-0 Yes 10mg Take 10 mg U nivers (ADALAT) 10 5-22 by mouth ity of mg capsule 23:54: daily. [address] Branch Levothyroxi 2019-0 Yes 112ug Take 112 U nivers ne 5-22 mcg by ity of (TIROSINT) 23:54: mouth. [place] 100 mcg Cap Medical Branch gemfibrozil 2019-0 Yes 600mg Take 600 U nivers (LOPID) 600 5-22 mg by ity of mg tablet 23:54: mouth 2 [place] [address] ([facility]) Medical times [place] daily before breakfast and dinner. metoprolol 20190 Yes 25mg Take 25 mg U nivers tartrate 5-22 by mouth ity of (LOPRESSOR) 23:54: daily. [facility] s 25 mg Medical tablet Branch pravastatin 0 Yes 40mg Take 40 mg Univers (PRAVACHOL) 5-22 by mouth ity of 40 mg 23:54: at [place] tablet bedtime. Medical Branch metFORMIN 20190 Yes 500mg Take 500 Uni vers (GLUCOPHAGE 5-22 mg by ity of ) 500 mg 23:54: mouth 2 [place] tablet 46 (two) Medical times [place] daily with meals. aspirin 2019-0 Yes 81mg Take 81 mg Univ ers (ASPIRIN 5-22 by mouth ity of LOW DOSE) 23:54: daily. [place] 81 mg EC 46 Medical tablet Branch NIFEdipine 2019-0 Yes 10mg Take 10 mg U nivers (ADALAT) 10 5-22 by mouth ity of mg capsule 23:54: daily. [place] [address] Medical Branch Levothyroxi 2019-0 Yes 112ug Take 112 U nivers ne 5-22 mcg by ity of (TIROSINT) 23:54: mouth. [place] 100 mcg Cap Medical Branch gemfibrozil 2019-0 Yes 600mg Take 600 U nivers (LOPID) 600 5-22 mg by ity of mg tablet 23:54: mouth 2 [place] [address] ([facility]) Medical times [place] daily before breakfast and dinner. metoprolol 2019-0 Yes 25mg Take 25 mg U nivers tartrate 5-22 by mouth ity of (LOPRESSOR) 23:54: daily. [place] 25 mg 46 Medical tablet Branch pravastatin Yes 40mg Take 40 mg Univers (PRAVACHOL) 5-22 by mouth ity of 40 mg 23:54: at [place] tablet 46 bedtime. Medical Branch metFORMIN Yes 500mg Take 500 Uni vers (GLUCOPHAGE 5-22 mg by ity of ) 500 mg 23:54: mouth 2 [place] tablet (two) Medical times Branch daily with meals. aspirin Yes 81mg Take 81 mg Univ ers (ASPIRIN 5-22 by mouth ity of LOW DOSE) 23:54: daily. [place] 81 mg EC Medical tablet Branch NIFEdipine Yes 10mg Take 10 mg U nivers (ADALAT) 10 5-22 by mouth ity of mg capsule 23:54: daily. [address] Branch Levothyroxi Yes 112ug Take 112 U nivers ne 5-22 mcg by ity of (TIROSINT) 23:54: mouth. [place] 100 mcg Cap Medical Branch NIFEdipine Yes 10mg Take 10 mg U nivers (ADALAT) 10 5-22 by mouth ity of mg capsule 18:54: daily. [address] Levothyroxi 0 Yes 112ug Take 112 U nivers ne 5-22 mcg by ity of (TIROSINT) 18:54: mouth. [place] 100 mcg Cap [address] [place] [address] Branch gemfibrozil 0 Yes 600mg Take 600 U nivers (LOPID) 600 5-22 mg by ity of mg tablet 18:54: mouth 2 [place] [address] (two) Medical times [place] daily before breakfast and dinner. metoprolol 0 Yes 25mg Take 25 mg U nivers tartrate 5-22 by mouth ity of (LOPRESSOR) 18:54: [facility]. [facility] Medical tablet Branch pravastatin 0 Yes 40mg Take 40 mg Univers (PRAVACHOL) 5-22 by mouth ity of 40 mg 18:54: at [place] tablet 46 bedtime. Medical Branch metFORMIN Yes 500mg Take 500 Uni vers (GLUCOPHAGE 5-22 mg by ity of ) 500 mg 18:54: mouth 2 [place] [address] (two) Medical times Branch daily with meals. aspirin 2019-0 Yes 81mg Take 81 mg Univ ers (ASPIRIN 5-22 by mouth ity of LOW DOSE) 18:54: daily. [place] 81 mg EC 46 Medical tablet Branch amoxicillin 2018-0 Yes [id number] 1{tbl} Take 1 Univers -clavulanat 5-22 tablet by ity of e 00:00: mouth 2 [place] (AUGMENTIN) 00 (two) Medical 875-125 mg times Branch per tablet daily. mupirocin 2019-0 Yes [id number] Apply to Univers (BACTROBAN) 5-22 area(s) 2 ity of 2 % 00:00: (two) [place] ointment 00 times Medical daily. Branch HYDROcodone 2018- Yes [id number] 1{tbl} Take 1 Univers -acetaminop 5-22 tablet by ity of hen (NORCO) 00:00: mouth [place] 5-325 mg 00 every 6 Medical tablet (six) Branch hours as needed for Pain (scale 1-3). omeprazole 2018- Yes [id number] 40mg Take 1 Univers 40 mg 5-22 capsule by ity of capsule 00:00: mouth 2 [place] 00 (two) Medical times Branch daily. amoxicillin 2018- Yes [id number] 1{tbl} Take 1 Univers -clavulanat 5-22 tablet by ity of e 00:00: mouth 2 [place] (AUGMENTIN) 00 (two) Medical 875-125 mg times Branch per tablet daily. mupirocin 2018-0 Yes [id number] Apply to Univers (BACTROBAN) 5-22 area(s) 2 ity of 2 % 00:00: (two) [place] ointment 00 times Medical daily. Branch HYDROcodone 2019-0 Yes [id number] 1{tbl} Take 1 Univers -acetaminop 5-22 tablet by ity of hen (NORCO) 00:00: mouth [place] 5-325 mg 00 every 6 Medical tablet (six) Branch hours as needed for Pain (scale 1-3). omeprazole 2019-0 Yes [id number] 40mg Take 1 [facility] 40 mg 5-22 capsule by [facility] of capsule 00:00: mouth 2 [place] 00 (two) Medical times Branch daily. amoxicillin 2019-0 Yes [id number] 1{tbl} Take 1 [facility] -clavulanat 5-22 tablet by ity of e 00:00: mouth 2 [place] (AUGMENTIN) 00 (two) Medical 875-125 mg times Branch per tablet daily. mupirocin 2019-0 Yes [id number] Apply to [facility] (BACTROBAN) 5-22 area(s) 2 ity of 2 % 00:00: (two) [place] ointment 00 times Medical daily. Branch HYDROcodone 2019-0 Yes [id number] 1{tbl} Take 1 [facility] -acetaminop 5-22 tablet by ity of hen (NORCO) 00:00: mouth [place] 5-325 mg 00 every 6 Medical tablet (six) Branch hours as needed for Pain (scale 1-3). omeprazole 2019-0 Yes [id number] 40mg Take 1 [facility] 40 mg 5-22 capsule by ity of capsule 00:00: mouth 2 [place] 00 (two) Medical times Branch daily. amoxicillin 2019-0 Yes [id number] 1{tbl} Take 1 [facility] -clavulanat 5-22 tablet by ity of e 00:00: mouth 2 [place] (AUGMENTIN) 00 (two) Medical 875-125 mg times Branch per tablet daily. mupirocin 2019-0 Yes [id number] Apply to [facility] (BACTROBAN) 5-22 area(s) 2 ity of 2 % 00:00: (two) [place] ointment 00 times Medical daily. Branch HYDROcodone 2019-0 Yes [id number] 1{tbl} Take 1 [facility] -acetaminop 5-22 tablet by ity of hen (NORCO) 00:00: mouth [place] 5-325 mg 00 every 6 Medical tablet (six) Branch hours as needed for Pain (scale 1-3). omeprazole 2019-0 Yes [id number] 40mg Take 1 [facility] 40 mg 5-22 capsule by ity of capsule 00:00: mouth 2 [place] 00 (two) Medical times Branch daily. amoxicillin 2019-0 Yes [id number] 1{tbl} Take 1 [facility] -clavulanat 5-22 tablet by ity of e 00:00: mouth 2 [place] (AUGMENTIN) 00 (two) Medical 875-125 mg times Branch per tablet daily. mupirocin 2019-0 Yes [id number] Apply to [facility] (BACTROBAN) 5-22 area(s) 2 ity of 2 % 00:00: (two) [place] ointment 00 times Medical daily. Branch HYDROcodone 2019-0 Yes [id number] 1{tbl} Take 1 [facility] -acetaminop 5-22 tablet by ity of hen (NORCO) 00:00: mouth [place] 5-325 mg 00 every 6 Medical tablet (six) Branch hours as needed for Pain (scale 1-3). omeprazole 2019-0 Yes [id number] 40mg Take 1 [facility] 40 mg 5-22 capsule by ity of capsule 00:00: mouth 2 [place] 00 (two) Medical times Branch daily. amoxicillin 2019-0 Yes [id number] 1{tbl} Take 1 [facility] -clavulanat 5-22 tablet by ity of e 00:00: mouth 2 [place] (AUGMENTIN) 00 (two) Medical 875-125 mg times Branch per tablet daily. mupirocin 2019-0 Yes [id number] Apply to [facility] (BACTROBAN) 5-22 area(s) 2 ity of 2 % 00:00: (two) [place] ointment 00 times Medical daily. Branch HYDROcodone 2019-0 Yes [id number] 1{tbl} Take 1 [facility] -acetaminop 5-22 tablet by ity of hen (NORCO) 00:00: mouth [place] 5-325 mg 00 every 6 Medical tablet (six) Branch hours as needed for Pain (scale 1-3). omeprazole 2019-0 Yes [id number] 40mg Take 1 [facility] 40 mg 5-22 capsule by ity of capsule 00:00: mouth 2 [place] 00 (two) Medical times Branch daily. amoxicillin 2019-0 Yes [id number] 1{tbl} Take 1 [facility] -clavulanat 5-22 tablet by ity of e 00:00: mouth 2 [place] (AUGMENTIN) 00 (two) Medical 875-125 mg times Branch per tablet daily. mupirocin 2019-0 Yes [id number] Apply to [facility] (BACTROBAN) 5-22 area(s) 2 ity of 2 % 00:00: (two) [place] ointment 00 times Medical daily. Branch HYDROcodone 2019-0 Yes [id number] 1{tbl} Take 1 [facility] -acetaminop 5-22 tablet by ity of hen (NORCO) 00:00: mouth [place] 5-325 mg 00 every 6 Medical tablet (six) Branch hours as needed for Pain (scale 1-3). omeprazole 2019-0 Yes [id number] 40mg Take 1 [facility] 40 mg 5-22 capsule by ity of capsule 00:00: mouth 2 [place] 00 (two) Medical times Branch daily. amoxicillin 2019-0 Yes [id number] 1{tbl} Take 1 [facility] -clavulanat 5-22 tablet by ity of e 00:00: mouth 2 [place] (AUGMENTIN) 00 (two) Medical 875-125 mg times Branch per tablet daily. mupirocin 2019-0 Yes [id number] Apply to [facility] (BACTROBAN) 5-22 area(s) 2 ity of 2 % 00:00: (two) [place] ointment 00 times Medical daily. Branch HYDROcodone 2019-0 Yes [id number] 1{tbl} Take 1 [facility] -acetaminop 5-22 tablet by ity of hen (NORCO) 00:00: mouth [place] 5-325 mg 00 every 6 Medical tablet (six) Branch hours as needed for Pain (scale 1-3). omeprazole 2019-0 Yes [id number] 40mg Take 1 [facility] 40 mg 5-22 capsule by ity of capsule 00:00: mouth 2 [place] 00 (two) Medical times Branch daily. amoxicillin 2019-0 Yes [id number] 1{tbl} Take 1 [facility] -clavulanat 5-22 tablet by ity of e 00:00: mouth 2 [place] (AUGMENTIN) 00 (two) Medical 875-125 mg times Branch per tablet daily. mupirocin 2019-0 Yes [id number] Apply to [facility] (BACTROBAN) 5-22 area(s) 2 ity of 2 % 00:00: (two) [place] ointment 00 times Medical daily. Branch HYDROcodone 2019-0 Yes [id number] 1{tbl} Take 1 [facility] -acetaminop 5-22 tablet by ity of hen (NORCO) 00:00: mouth [place] 5-325 mg 00 every 6 Medical tablet (six) Branch hours as needed for Pain (scale 1-3). omeprazole 2019-0 Yes [id number] 40mg Take 1 [facility] 40 mg 5-22 capsule by ity of capsule 00:00: mouth 2 [place] 00 (two) Medical times Branch daily. amoxicillin 2019-0 Yes [id number] 1{tbl} Take 1 [facility] -clavulanat 5-22 tablet by ity of e 00:00: mouth 2 [place] (AUGMENTIN) 00 (two) Medical 875-125 mg times Branch per tablet daily. mupirocin 2018-0 Yes [id number] Apply to [facility] (BACTROBAN) 5-22 area(s) 2 ity of 2 % 00:00: (two) [place] ointment 00 times Medical daily. Branch HYDROcodone 2019-0 Yes [id number] 1{tbl} Take 1 [facility] -acetaminop 5-22 tablet by ity of hen (NORCO) 00:00: mouth [place] 5-325 mg 00 every 6 Medical tablet (six) Branch hours as needed for Pain (scale 1-3). omeprazole 2018- Yes [id number] 40mg Take 1 [facility] 40 mg 5-22 capsule by ity of capsule 00:00: mouth 2 [place] 00 (two) Medical times Branch daily. lovastatin 2018-0 No 1mg 20 mg 3-27 tablet 00:00: 00 levothyroxi 2019-0 No 1mcg ne 75 mcg 3-27 tablet 00:00: 00 lovastatin 2019-0 No 1mg 20 mg 3-27 tablet 00:00: 00 levothyroxi 2019-0 No 1mcg ne 75 mcg 3-27 tablet 00:00: 00 metoprolol 2019-0 No 1mg tartrate 25 3-26 mg tablet 00:00: 00 metoprolol 2019-0 No 1mg tartrate 25 3-26 mg tablet 00:00: 00 levothyroxi 2019-0 No 1mcg ne 75 mcg 1-08 tablet 00:00: 00 albuterol 2019-0 No 3/3 mL sulfate 2.5 1-08 (0.083 mg/3 mL 00:00: %) (0.083 %) 00 solution for nebulizatio n albuterol 2019-0 No 3/3 mL sulfate 2.5 1-08 (0.083 mg/3 mL 00:00: %) (0.083 %) 00 solution for nebulizatio n levothyroxi 2019-0 No 1mcg ne 75 mcg 1-08 tablet 00:00: 00 albuterol 2019-0 No 3/3 mL sulfate 2.5 1-08 (0.083 mg/3 mL 00:00: %) (0.083 %) 00 solution for nebulizatio n albuterol 0 No 3/3 mL sulfate 2.5 1-08 (0.083 mg/3 mL 00:00: %) (0.083 %) 00 solution for nebulizatio n guaifenesin 2017-05 No 1mg 400 mg 2-06 tablet 00:00: 00 albuterol 2017-05 No 3/3 mL sulfate 2.5 2-06 (0.083 mg/3 mL 00:00: %) (0.083 %) 00 solution for nebulizatio n guaifenesin 2017-05 No 1mg 400 mg 2-06 tablet 00:00: 00 albuterol 2017-05 No 3/3 mL sulfate 2.5 2-06 (0.083 mg/3 mL 00:00: %) (0.083 %) 00 solution for nebulizatio n levothyroxi 2017-05 No 1mcg ne 75 mcg 0-20 tablet 00:00: 00 levothyroxi 2017-05 No 1mcg ne 75 mcg 0-20 tablet 00:00: 00 guaifenesin 2017-05 No 1mg 400 mg 0-18 tablet 00:00: 00 metoprolol 1 No 1mg tartrate 25 0-18 mg tablet 00:00: 00 lovastatin 2017-1 No 1mg 20 mg 0-18 tablet 00:00: 00 lovastatin 2017-1 No 1mg 20 mg 0-18 tablet 00:00: 00 guaifenesin 2017-05 No 1mg 400 mg 0-18 tablet 00:00: 00 metoprolol 2017-1 No 1mg tartrate 25 0-18 mg tablet 00:00: 00 lovastatin 2017-1 No 1mg 20 mg 0-18 tablet 00:00: 00 lovastatin 2017-1 No 1mg 20 mg 0-18 tablet 00:00: 00 metoprolol 2018-0 No 1mg tartrate 25 5-15 mg tablet 00:00: 00 lovastatin 2018-0 No 1mg 20 mg 5-15 tablet 00:00: 00 levothyroxi 20180 No 1mcg ne 75 mcg 5-15 tablet 00:00: 00 metoprolol 2018-0 No 1mg tartrate 25 5-15 mg tablet 00:00: 00 lovastatin 2017-0 No 1mg 20 mg 5-15 tablet 00:00: 00 levothyroxi 2018-0 No 1mcg ne 75 mcg 5-15 tablet 00:00: 00 lovastatin 2018-0 No 1mg 20 mg 2-18 tablet 00:00: 00 lovastatin 2018-0 No 1mg 20 mg 2-18 tablet 00:00: 00 levothyroxi 2018-0 No 1mcg ne 75 mcg 2-14 tablet 00:00: 00 levothyroxi 2018-0 No 1mcg ne 75 mcg 2-14 tablet 00:00: 00 metoprolol 2018-0 No 1mg tartrate 25 2-08 mg tablet 00:00: 00 metoprolol 2018-0 No 1mg tartrate 25 2-08 mg tablet 00:00: 00 levothyroxi 2017-1 No 1mcg ne 75 mcg 2-07 tablet 00:00: 00 levothyroxi 2017-1 No 1mcg ne 50 mcg 2-07 tablet 00:00: 00 levothyroxi 2017-1 No 1mcg ne 75 mcg 2-07 tablet 00:00: 00 levothyroxi 2017-1 No 1mcg ne 75 mcg 2-07 tablet 00:00: 00 levothyroxi 2017-1 No 1mcg ne 75 mcg 2-07 tablet 00:00: 00 levothyroxi 2017-1 No 1mcg ne 50 mcg 2-07 tablet 00:00: 00 levothyroxi 2016-1 No 1mcg ne 75 mcg 2-07 tablet 00:00: 00 levothyroxi 2017-1 No 1mcg ne 75 mcg 2-07 tablet 00:00: 00 metoprolol 2017-1 No 1mg tartrate 25 1-10 mg tablet 00:00: 00 levothyroxi 2017-1 No 1mcg ne 75 mcg 1-10 tablet 00:00: 00 metoprolol 2017-1 No 1mg tartrate 25 1-10 mg tablet 00:00: 00 levothyroxi 2017-1 No 1mcg ne 75 mcg 1-10 tablet 00:00: 00 levothyroxi 2017-0 No 1mcg ne 88 mcg 8-26 tablet 00:00: 00 levothyroxi 2017-0 No 1mcg ne 88 mcg 8-26 tablet 00:00: 00 levothyroxi 2017-0 No 1mcg ne 88 mcg 7-25 tablet 00:00: 00 levothyroxi 2017-0 No 1mcg ne 88 mcg 7-25 tablet 00:00: 00 metoprolol 2017-0 No 1mg tartrate 25 6-30 mg tablet 00:00: 00 levothyroxi 2017-0 No 1mcg ne 75 mcg 6-30 tablet 00:00: 00 metoprolol 2017-0 No 1mg tartrate 25 6-30 mg tablet 00:00: 00 levothyroxi 2017-0 No 1mcg ne 75 mcg 6-30 tablet 00:00: 00 metoprolol 2017-0 No 1mg tartrate 25 2-28 mg tablet 00:00: 00 levothyroxi 2016-0 No 1mcg ne 75 mcg 2-28 tablet 00:00: 00 metoprolol 2016-0 No 1mg tartrate 25 2-28 mg tablet 00:00: 00 levothyroxi 2016-0 No 1mcg ne 75 mcg 2-28 tablet 00:00: 00 metoprolol 2015-1 No 1mg tartrate 25 2-27 mg tablet 00:00: 00 metoprolol 2015-1 No 1mg tartrate 25 2-27 mg tablet 00:00: 00 metoprolol 2015-1 No 1mg tartrate 50 2-02 mg tablet 00:00: 00 metoprolol 2015-1 No 1mg tartrate 50 2-02 mg tablet 00:00: 00 amlodipine 2015-1 No 1mg 10 mg 1-30 tablet 00:00: 00 metoprolol 2015-1 No 1mg succinate 1-30 ER 50 mg 00:00: tablet,exte 00 nded release 24 hr levothyroxi 2015-1 No 1mcg ne 75 mcg 1-30 tablet 00:00: 00 amlodipine 2015-1 No 1mg 10 mg 1-30 tablet 00:00: 00 metoprolol 2015-1 No 1mg succinate 1-30 ER 50 mg 00:00: tablet,exte 00 nded release 24 hr levothyroxi 2015-1 No 1mcg ne 75 mcg 1-30 tablet 00:00: 00 Procardia 2016-0 No 1mg 10 mg 9-26 capsule 00:00: 00 Synthroid 2016-0 No 1mcg 100 mcg 9-26 tablet 00:00: 00 Synthroid 2016-0 No 1mcg 100 mcg 9-26 tablet 00:00: 00 Procardia 2016-0 No 1mg 10 mg 9-26 capsule 00:00: 00 Procardia 2016-0 No 1mg 10 mg 9-26 capsule 00:00: 00 Synthroid 2016-0 No 1mcg 100 mcg 9-26 tablet 00:00: 00 Synthroid 2016-0 No 1mcg 100 mcg 9-26 tablet 00:00: 00 Procardia 2016-0 No 1mg 10 mg 9-26 capsule 00:00: 00 amlodipine 2016-0 No 1mg 5 mg tablet 6 00:00: 00 gemfibrozil 2016-0 No 1mg 600 mg 6-06 tablet 00:00: 00 metoprolol 2016-0 No 1mg tartrate 25 6-06 mg tablet 00:00: 00 metformin 2016-0 No 1mg 500 mg 6-06 tablet 00:00: 00 amlodipine 2016-0 No 1mg 5 mg tablet 6 00:00: 00 gemfibrozil 2016-0 No 1mg 600 mg 6-06 tablet 00:00: 00 metoprolol 2016-0 No 1mg tartrate 25 6-06 mg tablet 00:00: 00 metformin 2016-0 No 1mg 500 mg 6-06 tablet 00:00: 00 amlodipine 2015-1 No 1mg 5 mg tablet 2-15 00:00: 00 metformin 2015-1 No 1mg 500 mg 2-15 tablet 00:00: 00 Levothroid 2015-1 No 1mcg 100 mcg 2-15 tablet 00:00: 00 amlodipine 2015-1 No 1mg 5 mg tablet 2-15 00:00: 00 metformin 2015-1 No 1mg 500 mg 2-15 tablet 00:00: 00 Levothroid 2015-1 No 1mcg 100 mcg 2-15 tablet 00:00: 00 gemfibrozil 2015-0 No 1mg 600 mg 9-23 tablet 00:00: 00 metformin 2015-0 No 1mg 500 mg 9-23 tablet 00:00: 00 Levothroid 2015-0 No 1mcg 100 mcg 9-23 tablet 00:00: 00 Levothroid 2015-0 No 1mcg 100 mcg 9-23 tablet 00:00: 00 gemfibrozil 2015-0 No 1mg 600 mg 9-23 tablet 00:00: 00 metformin 2015-0 No 1mg 500 mg 9-23 tablet 00:00: 00 Levothroid 2015-0 No 1mcg 100 mcg 9-23 tablet 00:00: 00 Levothroid 2015-0 No 1mcg 100 mcg 9-23 tablet 00:00: 00 gemfibrozil 2015-0 No 1mg 600 mg 6-04 tablet 00:00: 00 metoprolol 2015-0 No 1mg tartrate 25 6-04 mg tablet 00:00: 00 Wellbutrin 2015-0 No 1mg 100 mg 6-04 tablet 00:00: 00 Procardia 2015-0 No 1mg 10 mg 6-04 capsule 00:00: 00 gemfibrozil 2015-0 No 1mg 600 mg 6-04 tablet 00:00: 00 metoprolol 2015-0 No 1mg tartrate 25 6-04 mg tablet 00:00: 00 Wellbutrin 2015-0 No 1mg 100 mg 6-04 tablet 00:00: 00 Procardia 2015-0 No 1mg 10 mg 6-04 capsule 00:00: 00 Levothroid 2015-0 No 1mcg 100 mcg 5-15 tablet 00:00: 00 Procardia 2015-0 No 1mg 10 mg 5-15 capsule 00:00: 00 Procardia 2015-0 No 1mg 10 mg 5-15 capsule 00:00: 00 pravastatin 2015-0 No 1mg 40 mg 5-15 tablet 00:00: 00 gemfibrozil 2015-0 No 1mg 600 mg 5-15 tablet 00:00: 00 pravastatin 2015-0 No 1mg 40 mg 5-15 tablet 00:00: 00 gemfibrozil 2015-0 No 1mg 600 mg 5-15 tablet 00:00: 00 gemfibrozil 2015-0 No 1mg 600 mg 5-15 tablet 00:00: 00 metoprolol 2015-0 No 1mg tartrate 25 5-15 mg tablet 00:00: 00 metoprolol 2015-0 No 1mg tartrate 25 5-15 mg tablet 00:00: 00 metoprolol 2015-0 No 1mg tartrate 25 5-15 mg tablet 00:00: 00 Levothroid 2015-0 No 1mcg 100 mcg 5-15 tablet 00:00: 00 Levothroid 2015-0 No 1mcg 100 mcg 5-15 tablet 00:00: 00 Procardia 2015-0 No 1mg 10 mg 5-15 capsule 00:00: 00 Procardia 2015-0 No 1mg 10 mg 5-15 capsule 00:00: 00 gemfibrozil 2015-0 No 1mg 600 mg 5-15 tablet 00:00: 00 metoprolol 2015-0 No 1mg tartrate 25 5-15 mg tablet 00:00: 00 metoprolol 2015-0 No 1mg tartrate 25 5-15 mg tablet 00:00: 00 metoprolol 2015-0 No 1mg tartrate 25 5-15 mg tablet 00:00: 00 Levothroid 2015-0 No 1mcg 100 mcg 5-15 tablet 00:00: 00 Immunizations Ordered Filled Immunization Date Status Comments Sourc e Immunization Name Name [facility] COVID-19 2021-01-23 Completed Vaccine 00:00:00 [place] COVID-19 2021-01-23 Completed Vaccine 00:00:00 pneumococcal 2015-10-22 Completed polysacchar 00:00:00 pneumococcal 2015-10-22 Completed polysacchar 00:00:00 Influenza Virus 2014-03-18 Completed Universit [facility] of Vaccine - Whole 00:00:00 [facility] Influenza Virus 2014-03-18 Completed Universit [facility] of Vaccine - Whole 00:00:00 [facility] Influenza Virus 2014-03-18 Completed Universit y of Vaccine - Whole 00:00:00 [facility] Influenza Virus 2014-03-18 Completed Universit y of Vaccine - Whole 00:00:00 [facility] Influenza Virus 2014-03-18 Completed Universit y of Vaccine - Whole 00:00:00 [facility] Influenza Virus 2014-03-18 Completed Universit y of Vaccine - Whole 00:00:00 [facility] Influenza Virus 2014-03-18 Completed Universit y of Vaccine - Whole 00:00:00 [facility] Influenza Virus 2014-03-18 Completed Universit y of Vaccine - Whole 00:00:00 [facility] Influenza Virus 2014-03-18 Completed Universit y of Vaccine - Whole 00:00:00 [facility] Influenza Virus 2014-03-18 Completed Universit y of Vaccine - Whole 00:00:00 [facility] Pneumococcal 2013-01-17 Completed University o f Polysaccharide, 00:00:00 [facility] PPSV23 (PNEUMOVAX) [place] Pneumococcal 2013-01-17 Completed University o f Polysaccharide, 00:00:00 [facility] PPSV23 (PNEUMOVAX) Branch Pneumococcal 2013-01-17 Completed University o f Polysaccharide, 00:00:00 [place] Med ical PPSV23 (PNEUMOVAX) Branch Pneumococcal 2013-01-17 Completed University o f Polysaccharide, 00:00:00 [place] Med ical PPSV23 (PNEUMOVAX) Branch Pneumococcal 2013-01-17 Completed University o f Polysaccharide, 00:00:00 [place] Med ical PPSV23 (PNEUMOVAX) Branch Pneumococcal 2013-01-17 Completed University o f Polysaccharide, 00:00:00 [place] Med ical PPSV23 (PNEUMOVAX) Branch Pneumococcal 2013-01-17 Completed University o f Polysaccharide, 00:00:00 [place] Med ical PPSV23 (PNEUMOVAX) Branch Pneumococcal 2013-01-17 Completed University o f Polysaccharide, 00:00:00 [place] Med ical PPSV23 (PNEUMOVAX) Branch Pneumococcal 2013-01-17 Completed University o f Polysaccharide, 00:00:00 [place] [facility] ical PPSV23 (PNEUMOVAX) Branch Pneumococcal 2013-01-17 Completed University o f Polysaccharide, 00:00:00 [place] [facility] ical PPSV23 (PNEUMOVAX) Branch Vital Signs Vital Name Observation Time Observation Value Comments Source BP Systolic 2022-05-13 15:15:00 129 mm[Hg] BP Diastolic 2022-05-13 15:15:00 74 mm[Hg] Weight Measured 2022-05-13 15:15:00 183.00 pounds Height Measured 2022-05-13 15:15:00 64.30 inches Body Temperature 2022-05-13 15:15:00 98.10 degrees Heart Rate 2022-05-13 15:15:00 67.00 /min Respiratory Rate 2022-05-13 15:15:00 18.00 /min BP Systolic 2022-02-03 10:48:00 118 mm[Hg] BP Diastolic 2022-02-03 10:48:00 71 mm[Hg] Weight Measured 2022-02-03 10:48:00 179.00 pounds Height Measured 2022-02-03 10:48:00 64.30 inches Body Temperature 2022-02-03 10:48:00 98.20 degrees Heart Rate 2022-02-03 10:48:00 67.00 /min Respiratory Rate 2022-02-03 10:48:00 18.00 /min BP Systolic 2021-10-16 10:26:00 101 mm[Hg] BP Diastolic 2021-10-16 10:26:00 62 mm[Hg] Weight Measured 2021-10-16 10:26:00 179.61 pounds Height Measured 2021-10-16 10:26:00 64.30 inches Body Temperature 2021-10-16 10:26:00 98.20 degrees Heart Rate 2021-10-16 10:26:00 55.00 /min Respiratory Rate 2021-10-16 10:26:00 32.00 /min BP Systolic 2021-10-16 10:04:00 101 mm[Hg] BP Diastolic 2021-10-16 10:04:00 62 mm[Hg] Weight Measured 2021-10-16 10:04:00 179.61 pounds Height Measured 2021-10-16 10:04:00 64.30 inches Body Temperature 2021-10-16 10:04:00 98.20 degrees Heart Rate 2021-10-16 10:04:00 55.00 /min Respiratory Rate 2021-10-16 10:04:00 32.00 /min BP Systolic 2021-06-03 10:31:00 114 mm[Hg] BP Diastolic 2021-06-03 10:31:00 64 mm[Hg] Weight Measured 2021-06-03 10:31:00 179.60 pounds Height Measured 2021-06-03 10:31:00 64.30 inches Body Temperature 2021-06-03 10:31:00 97.60 degrees Heart Rate 2021-06-03 10:31:00 62.00 /min Respiratory Rate 2021-06-03 10:31:00 20.00 /min BP Systolic 2021-05-06 17:06:00 139 mm[Hg] BP Diastolic 2021-05-06 17:06:00 68 mm[Hg] Weight Measured 2021-05-06 17:06:00 178.80 pounds Height Measured 2021-05-06 17:06:00 64.03 inches Body Temperature 2021-05-06 17:06:00 98.40 degrees Heart Rate 2021-05-06 17:06:00 62.00 /min Respiratory Rate 2021-05-06 17:06:00 21.00 /min BP Systolic 2021-02-13 09:36:00 126 mm[Hg] BP Diastolic 2021-02-13 09:36:00 68 mm[Hg] Weight Measured 2021-02-13 09:36:00 176.80 pounds Height Measured 2021-02-13 09:36:00 64.03 inches Body Temperature 2021-02-13 09:36:00 98.20 degrees Heart Rate 2021-02-13 09:36:00 66.00 /min Respiratory Rate 2021-02-13 09:36:00 BP Systolic 2020-12-10 15:59:00 125 mm[Hg] BP Diastolic 2020-12-10 15:59:00 63 mm[Hg] Weight Measured 2020-12-10 15:59:00 174.60 pounds Height Measured 2020-12-10 15:59:00 64.03 inches Body Temperature 2020-12-10 15:59:00 98.20 degrees Heart Rate 2020-12-10 15:59:00 59.00 /min Respiratory Rate 2020-12-10 15:59:00 21.00 /min BP Systolic 2020-11-15 09:33:00 117 mm[Hg] BP Diastolic 2020-11-15 09:33:00 72 mm[Hg] Weight Measured 2020-11-15 09:33:00 174.40 pounds Height Measured 2020-11-15 09:33:00 64.03 inches Body Temperature 2020-11-15 09:33:00 97.90 degrees Heart Rate 2020-11-15 09:33:00 62.00 /min Respiratory Rate 2020-11-15 09:33:00 22.00 /min BP Systolic 2020-09-21 08:10:00 146 mm[Hg] BP Diastolic 2020-09-21 08:10:00 78 mm[Hg] Weight Measured 2020-09-21 08:10:00 167.00 pounds Height Measured 2020-09-21 08:10:00 64.03 inches Body Temperature 2020-09-21 08:10:00 98.30 degrees Heart Rate 2020-09-21 08:10:00 67.00 /min Respiratory Rate 2020-09-21 08:10:00 17.00 /min BP Systolic 2020-07-25 10:06:00 121 mm[Hg] BP Diastolic 2020-07-25 10:06:00 72 mm[Hg] Weight Measured 2020-07-25 10:06:00 157.00 pounds Height Measured 2020-07-25 10:06:00 64.03 inches Body Temperature 2020-07-25 10:06:00 98.60 degrees Heart Rate 2020-07-25 10:06:00 80.00 /min Respiratory Rate 2020-07-25 10:06:00 16.00 /min Procedures Procedure Date / Time Performing Clinician Source Performed REFERRAL- REQUEST/RESPONSE 2022-08-18 05:01:00 Doctor Unassigned , [facility] NO SHOW OR MISSED 2018-12-17 18:49:49 Doctor Unassigned, [facility] APPOINTMENT POLICY [facility] h ACKNOWLEDGEMENT FLEXIBLE SCOPE ENT 2018-12-17 00:00:00 [facility] Ekg 2018-08-10 00:00:00 62041 Ecg Routine Ecg 2016-04-16 00:00:00 W/least 12 Lds W/i r Plan of Care Planned Activity Planned Date Details Comments Source Goal Plan of Care Note [code = 67687-8] Goal Plan of Care Note [code = 59935-0] Goal Plan of Care Note [code = 14926-9] Goal Plan of Care Note [code = 70144-8] Goal Plan of Care Note [code = 84694-5] Goal Plan of Care Note [code = 29172-8] Goal Plan of Care Note [code = 88752-6] Goal Plan of Care Note [code = 37182-5] Goal Plan of Care Note [code = 45327-3] Goal Plan of Care Note [code = 91545-3] Goal Plan of Care Note [code = 48580-2] Goal Plan of Care Note [code = 76202-0] Goal Plan of Care Note [code = 98796-0] Goal Plan of Care Note [code = 67282-3] Goal Plan of Care Note [code = 67685-9] Goal Plan of Care Note [code = 54266-5] Goal Plan of Care Note [code = 15091-5] Goal Plan of Care Note [code = 06982-7] Goal Plan of Care Note [code = 41143-7] Goal Plan of Care Note [code = 66919-0] Goal Plan of Care Note [code = 31854-6] Goal Plan of Care Note [code = 36797-6] Goal Plan of Care Note [code = 68925-1] Goal Plan of Care Note [code = 77978-1] Goal Plan of Care Note [code = 04004-9] Goal Plan of Care Note [code = 84155-0] Goal Plan of Care Note [code = 19819-9] Goal Plan of Care Note [code = 04053-2] Goal Plan of Care Note [code = 48093-1] Goal Plan of Care Note [code = 83989-6] Goal Plan of Care Note [code = 58984-7] Goal Plan of Care Note [code = 34836-1] Goal Plan of Care Note [code = 99551-6] Goal Plan of Care Note [code = 61321-3] Goal Plan of Care Note [code = 23286-0] Goal Plan of Care Note [code = 54583-4] Goal Plan of Care Note [code = 72127-7] Goal Plan of Care Note [code = 10602-4] Goal Plan of Care Note [code = 02285-1] Goal Plan of Care Note [code = 55408-1] Goal Plan of Care Note [code = 98145-2] Goal Plan of Care Note [code = 36486-9] Goal Plan of Care Note [code = 44749-2] Goal Plan of Care Note [code = 75404-9] Goal Plan of Care Note [code = 52784-6] Goal Plan of Care Note [code = 21119-6] Goal Plan of Care Note [code = 23685-3] Goal Plan of Care Note [code = 35287-1] Goal Plan of Care Note [code = 95489-7] Goal Plan of Care Note [code = 55817-0] Goal Plan of Care Note [code = 71289-8] Goal Plan of Care Note [code = 94180-6] Goal Plan of Care Note [code = 39947-8] Goal Plan of Care Note [code = 39084-5] Goal Plan of Care Note [code = 83434-0] Goal Plan of Care Note [code = 34664-1] Goal Plan of Care Note [code = 91521-1] Goal Plan of Care Note [code = 84535-8] Goal Plan of Care Note [code = 03140-8] Goal Plan of Care Note [code = 54653-5] Goal Plan of Care Note [code = 49533-9] Goal Plan of Care Note [code = 04732-4] Goal Plan of Care Note [code = 42438-0] Goal Plan of Care Note [code = 74625-2] Goal Plan of Care Note [code = 29119-0] Goal Plan of Care Note [code = 67212-9] Goal Plan of Care Note [code = 84576-1] Goal Plan of Care Note [code = 11431-5] Goal Plan of Care Note [code = 66130-3] Goal Plan of Care Note [code = 99061-9] Encounters Start End Encounter Admission Attending Care Care Encounter Source Date/Time Date/Time Type Type Clinicians Facility Department ID 2022-12-25 2022-12-25 Outpatient CLAIRE RANGEL [id number] Luis 09:37:14 09:37:14 0810 [facility] 2022-11-10 2022-11-10 Outpatient CLAIRE RANGEL [id number] Luis 14:59:28 14:59:28 0626 [facility] 2022-11-10 2022-11-10 Outpatient Rashid POOLE [facility] [id number] [facility] 08:30:00 08:30:00 SALLY hamlin [facility] 2022-08-18 2022-08-18 Outpatient CLAIRE RANGEL [id number] Luis 09:09:32 09:09:32 0403 [facility] 2022-08-18 2022-08-18 Orders Doctor CHOI [id number] [facility] 00:00:00 00:00:00 Only Unassigned, CARYL [id number] [facility] [place] [facility] [id number] Felix as [id number] [address] 2022-05-28 2022-05-28 Outpatient SFA SFA [id number] Luis 08:16:16 08:16:16 0111 [place] 2022-05-13 2022-05-13 Outpatient SFA SFA [id number] 022 Luis 14:51:43 14:51:43 1227 F Romulo 2022-05-13 2022-05-13 Outpatient [id number]- [id number] 00:00:00 00:00:00 Visit [id number] -6cy8-vpk ec4-ccf51b [id number] 47d84c 2022-02-03 2022-02-03 Outpatient [id number]- [id number] [id number] 00:00:00 00:00:00 Visit 03ae-[id number]-[id number] -[id number] [id number] [id number] 2018-12-22 2018-12-23 Ancillary Hortencia [facility] [id number] 07:58:54 21:59:48 Visit Lou Lozoya [facility] [place] 350.1.13.10 Cancer 4.2.7.2.686 Center - [phone] [facility] 145 2018-12-22 2018-12-23 Ancillary Lou Burnett [facility] 1.2.840 .114 [id number] [facility] 07:58:54 21:59:48 Visit Obdulia Mayo [facility] [place] 350.1.13.10 it[place] - [phone] [facility] 145 Branch 2018-12-17 2018-12-17 Office Leonela VTREINA 1.2.840.114 [id number] [facility] 13:58:01 15:16:25 Visit [facility] 350.1.13.10 it y of Cancer [place] - [phone] [facility] 144 Branch 2018-12-17 2018-12-17 Orders Doctor STEPH 1.2.840.114 [id number] 00:00:00 00:00:00 Only Unassigned, CARYL 350.1.13.10 ity of [facility] 4.2.7.2.686 Felix as [phone] [place] [address] Branch Results Test Description Test Time Test Comments Results Result Comments Source [facility], THIRD GENERATION 2022-11-11 06:25:24 Test Item Value Reference Range Interpretation Comme nts TSH, THIRD GENERATION (test 1.220 UIU/ML 0.400-4.100 UNLESS OTHERWISE INDICATED, code = 2821) ALL TESTING PER FORMED AT CLINICAL PATHOL [employer], [facility]. [address] [place] [address] 0352 WEALTH MANAGEMENT ADVISOR: JACE BARR M.D. ANCELMO Mike [phone] [place] [id number] LIPID [id number] 06:33:12 Test Item Value Reference Range Interpretation Comments CHOLESTEROL (test 149 MG/DL <200 code = 2210) TRIGLYCERIDES (test 151 MG/DL <150 H code = 2232) HDL CHOLESTEROL (test 40 MG/DL >39 code = 2220) CALC LDL CHOL (test 84 MG/DL <100 NOTE: C ALCULATED LDL code = 2237) IS BASED ON MARILU-ROJAS METHOD WHICHINCLUDES ADJUSTABLE TRIGLYCERIDE:VL DL CHOLESTEROL RAT IO.THIS FACTOR VARIES B Y MEASURED TRIGLY CERIDE AND NON-HDLCHOL ESTEROL CONCENTRATIONS WITH INCREASED CALCU LATED LDL SEENIN HIGH ER TRIGLYCERIDE OR LOWER NON-HDL SPECIME NS. FOR MOREINFORMATION , SEE CLIENT ANNOUNCE MENT AT [email or web address] RISK RATIO LDL/HDL 2.10 RATIO <3.55 (test code = 2238) COMPREHENSIVE METABOLIC [id number] 06:33:12 Test Item Value Reference Range Interpretation Comments GLUCOSE (test code = 103 MG/DL 70-99 H 2216) BUN (test code = 26 MG/DL 8-23 H 2207) CREATININE (test 1.32 MG/DL 0.80-1.40 code = 2214) eGFR (2020 CKD-EPI) 54 ML/MIN/1.73 >60 L The N KF-ASN (test code = 51931) Taskforc e recommends use of Cystatin C to confirm eGFR inadults at ris k for CKD. [facility] offers eGFR with Cystatin C-Creatinineusi ng the 2020 CKD-EP I eGFR_creat-cyst at equation (order code 7067) toincreas e the accuracy of estimated GFR. For more informatio n, contactyour acc ount executive or se e announcement [email or web address] CALC BUN/CREAT (test 20 RATIO 6-28 code = 2235) SODIUM (test code = 145 MEQ/L 230-659 5074) POTASSIUM (test code 4.4 MEQ/L 3.5-5.4 = 2228) CHLORIDE (test code 106 MEQ/L 95-107 = 2215) CARBON DIOXIDE (test 22 MEQ/L 19-31 code = 2206) CALCIUM (test code = 10.0 MG/DL 8.5-10.5 2208) PROTEIN, TOTAL (test 7.3 G/DL 6.1-8.3 code = 2229) ALBUMIN (test code = 4.4 G/DL 3.5-5.2 220) CALC GLOBULIN (test 2.9 G/DL 1.9-3.7 code = 2240) CALC A/G RATIO (test 1.5 RATIO 1.0-2.6 code = 2234) BILIRUBIN, TOTAL 1.5 MG/DL See_Comment H [Automated message] (test code = 220) The syste [employer] which generated this result transmit carla reference range : <=1.2. The refe rence range was not u sed to interpret th is result as normal/abnormal . ALKALINE PHOSPHATASE 76 U/L 40-125 (test code = 2204) AST (test code = 28 U/L 9-50 2217) ALT (test code = 14 U/L 5-50 2218) HEPATITIS PANEL, [id number] 05:30:43 Test Item Value Reference Range Interpretation Comments HEPATITIS A IgM (test NON-REACTIVE NON-REACTIVE code = 47470) HEPATITIS B CORE IgM NON-REACTIVE NON-REACTIVE (test code = 4644) HEPATITIS B SURF AG NON-REACTIVE NON-REACTIVE (test code = 2739) HEPATITIS C ANTIBODY NON-REACTIVE NON-REACTIVE (test code = 4675) INTERPRETATION (NOTE) Hepatitis A HEPATITIS A: (test serology shows no code = 2552) evidence of acu te hepatitis A. INTERPRETATION (NOTE) Hepatitis B HEPATITIS B: (test serology shows no code = 09195) evidence of ac christiane hepatitis B and no indication of exposure to hepatitis B vir us in the previous si xto eight months. INTERPRETATION (NOTE) Hepatitis C HEPATITIS C: (test serology shows no code = 79432) evidence of ex posure to hepatitisC v irus at this time. I t can take up to 12 m onths after exposure tothe hepatitis C vir us for antibodies to become detectab le in the blood in ce rtain patients. UNLES S OTHERWISE INDIC ATED, ALL TESTING PERFORMED [facility], [place]. [address] [facility] [place] [address] [facility] C[facility] DIRECTOR: NORBERT LERMA M.D. CLIA NUMBER [id number] CAP ACCREDITATI ON NO. CBC W/AUTO DIFF WITH [id number] 02:00:05 Test Item Value Reference Range Interpretation Comments WBC (test code = 5.1 K/UL 3.5-11.0 1001) RBC (test code = 5.05 M/UL 4.50-6.10 1002) HEMOGLOBIN (test code 14.5 G/DL 13.5-17.0 = 1003) HEMATOCRIT (test code 44.2 % 40.0-51.0 = 1004) MCV (test code = 87.5 fL 80.0-99.0 1005) MCH (test code = 28.7 PG 25.0-33.0 1006) MCHC (test code = 32.8 G/DL 31.0-36.0 1007) RDW (test code = 13.9 % 11.5-15.0 1038) NEUTROPHILS (test 52.6 % code = 1008) LYMPHOCYTES (test 31.3 % code = 1010) MONOCYTES (test code 8.8 % = 1011) EOSINOPHILS (test 6.1 % code = 1012) BASOPHILS (test code 0.8 % = 1013) IMMATURE GRANULOCYTES 0.4 % (test code = 1036) NUCLEATED RBCS (test 0.0 /100 WBC'S See_Comment [Aut omated code = 1065) message] The sy stem which generated this result transmitted reference range : 0.0. The refere nce range was not u sed to interpret th is result as normal/abnormal . PLATELET COUNT (test 122 K/UL 130-400 L code = 1015) ABSOLUTE NEUTROPHILS 2.70 K/UL 1.50-7.50 (test code = 1066) ABSOLUTE LYMPHOCYTES 1.60 K/UL 1.00-4.00 (test code = 1067) ABSOLUTE MONOCYTES 0.45 K/UL 0.20-1.00 (test code = 1068) ABSOLUTE EOSINOPHILS 0.31 K/UL 0.00-0.50 (test code = 1040) ABSOLUTE BASOPHILS 0.04 K/UL 0.00-0.20 (test code = 1069) ABS IMMATURE 0.02 K/UL 0.00-0.10 GRANULOCYTES (test code = 1020) ABS NUCLEATED RBCS 0.00 K/UL 0.00-0.11 (test code = 31158) HEMOGLOBIN [id number] 06:08:46 Test Item Value Reference Range Interpretation Comments HEMOGLOBIN A1c (test 5.9 % 4.2-5.6 H UNLESS OTHERWISE code = 58178) INDICATED, ALL TESTING PERFORMED [facility]. [address] [place] [address] [facility] DAR[facility] DIRECTOR: NORBERT LERMA M.D. CLIA NUMBER [id number] CAP ACCREDITATION N O. [id number] TSH, THIRD [id number] 05:24:07 Test Item Value Reference Range Interpretation Comments TSH, THIRD GENERATION (test code 1.620 UIU/ML 0.400-4.100 = 2821) TSH, THIRD [id number] 06:26:56 Test Item Value Reference Range Interpretation Comments TSH, THIRD 2.120 UIU/ML 0.400-4.100 UNLESS OTHERWI SE GENERATION (test INDICATED, ALL TESTING code = 2821) PERFORMED [facility], [facility]. [address] [place] [address] [facility] DIRECTOR: NORBERT LERMA M.D. CLIA NUMBER [id number] CAP ACCREDITATION N O. [id number] HEMOGLOBIN [id number] 04:34:30 Test Item Value Reference Range Interpretation Comments HEMOGLOBIN A1c (test code = 72748) 5.9 % 4.2-5.6 H HEMOGLOBIN [id number] 00:00:00 Test Item Value Reference Range Interpretation Comments HEMOGLOBIN A1c (test code = 54694) 5.9 % HEMOGLOBIN [id number] 00:00:00 Test Item Value Reference Range Interpretation Comments HEMOGLOBIN A1c (test code = 69789) 5.9 % HEMOGLOBIN [id number] 00:00:00 Test Item Value Reference Range Interpretation Comments HEMOGLOBIN A1c (test code = 39766) 5.9 % [id number] 00:00:00 Test Item Value Reference Range Interpretation Comments TSH, THIRD GENERATION (test code 2.120 UIU/ML = 2821) [id number] 00:00:00 Test Item Value Reference Range Interpretation Comments TSH, THIRD GENERATION (test code 2.120 UIU/ML = 2821) [id number] 00:00:00 Test Item Value Reference Range Interpretation Comments TSH, THIRD GENERATION (test code 2.120 UIU/ML = 2821) HEMOGLOBIN [id number] 00:00:00 Test Item Value Reference Range Interpretation Comments HEMOGLOBIN A1c (test code = 59117) 5.9 % HEMOGLOBIN [id number] 00:00:00 Test Item Value Reference Range Interpretation Comments HEMOGLOBIN A1c (test code = 27085) 5.9 % HEMOGLOBIN [id number] 00:00:00 Test Item Value Reference Range Interpretation Comments HEMOGLOBIN A1c (test code = 26398) 5.9 % [id number] 00:00:00 Test Item Value Reference Range Interpretation Comments TSH, THIRD GENERATION (test code 2.120 UIU/ML = 2821) [id number] 00:00:00 Test Item Value Reference Range Interpretation Comments TSH, THIRD GENERATION (test code 2.120 UIU/ML = 2821) [id number] 00:00:00 Test Item Value Reference Range Interpretation Comments TSH, THIRD GENERATION (test code 2.120 UIU/ML = 2821) COMPREHENSIVE METABOLIC [id number] 05:22:49 Test Item Value Reference Range Interpretation Comments GLUCOSE (test code = 82 MG/DL 70-99 2216) BUN (test code = 26 MG/DL 8-23 H 2207) CREATININE (test 1.38 MG/DL 0.80-1.40 code = 2214) eGFR (2020 CKD-EPI) 51 >60 L (test code = 18882) ML/MIN/1.73 CALC BUN/CREAT (test 19 RATIO 6-28 code = 2235) SODIUM (test code = 142 MEQ/L 061-970 3454) POTASSIUM (test code 4.0 MEQ/L 3.5-5.4 = 8) CHLORIDE (test code 106 MEQ/L 95-107 = 2215) CARBON DIOXIDE (test 23 MEQ/L 19-31 code = 2206) CALCIUM (test code = 9.2 MG/DL 8.5-10.5 2208) PROTEIN, TOTAL (test 7.3 G/DL 6.1-8.3 code = 222) ALBUMIN (test code = 4.3 G/DL 3.5-5.2 2200) CALC GLOBULIN (test 3.0 G/DL 1.9-3.7 code = 2240) CALC A/G RATIO (test 1.4 RATIO 1.0-2.6 code = 223) BILIRUBIN, TOTAL 1.3 MG/DL See_Comment H [Automated message] (test code = 220) The syste m which generated this result transmitted ref erence range: <=1.2. T he reference range was not used to int erpret this result as normal/abnormal . ALKALINE PHOSPHATASE 72 U/L 40-125 (test code = 220) AST (test code = 32 U/L 9-50 2217) ALT (test code = 15 U/L 5-50 UNLESS OTH ERWISE 2218) INDICATED, ALL TESTING [facility]FORM [facility]. [address] [place], [place] [id number] [place] [address] DIRECTOR: NORBERT LERMA M.D. CLIA NUMBER [id number] CAP ACCREDITATION N O. [id number] COMPREHENSIVE METABOLIC [id number] 00:00:00 Test Item Value Reference Range Interpretation Comments GLUCOSE (test code = 2217) 82 MG/DL BUN (test code = 2208) 26 MG/DL CREATININE (test code = 2214) 1.38 MG/DL eGFR (2020 CKD-EPI) (test code 51 ML/MIN/1.73 = 82095) CALC BUN/CREAT (test code = 19 RATIO 5) SODIUM (test code = 2231) 142 MEQ/L POTASSIUM (test code = 2228) 4.0 MEQ/L CHLORIDE (test code = 2215) 106 MEQ/L CARBON DIOXIDE (test code = 23 MEQ/L 2205) CALCIUM (test code = 2209) 9.2 MG/DL PROTEIN, TOTAL (test code = 7.3 G/DL 2228) ALBUMIN (test code = 220) 4.3 G/DL CALC GLOBULIN (test code = 3.0 G/DL 2240) CALC A/G RATIO (test code = 1.4 RATIO 2234) BILIRUBIN, TOTAL (test code = 1.3 MG/DL 2207) ALKALINE PHOSPHATASE (test 72 U/L code = 2204) AST (test code = 2218) 32 U/L ALT (test code = 2219) 15 U/L COMPREHENSIVE METABOLIC [id number] 00:00:00 Test Item Value Reference Range Interpretation Comments GLUCOSE (test code = 2217) 82 MG/DL BUN (test code = 2208) 26 MG/DL CREATININE (test code = 2214) 1.38 MG/DL eGFR (2020 CKD-EPI) (test code 51 ML/MIN/1.73 = 47589) CALC BUN/CREAT (test code = 19 RATIO 2235) SODIUM (test code = 2231) 142 MEQ/L POTASSIUM (test code = 2228) 4.0 MEQ/L CHLORIDE (test code = 2215) 106 MEQ/L CARBON DIOXIDE (test code = 23 MEQ/L 2205) CALCIUM (test code = 2209) 9.2 MG/DL PROTEIN, TOTAL (test code = 7.3 G/DL 2228) ALBUMIN (test code = 2201) 4.3 G/DL CALC GLOBULIN (test code = 3.0 G/DL 2240) CALC A/G RATIO (test code = 1.4 RATIO 2234) BILIRUBIN, TOTAL (test code = 1.3 MG/DL 2207) ALKALINE PHOSPHATASE (test 72 U/L code = 2204) AST (test code = 2218) 32 U/L ALT (test code = 2219) 15 U/L COMPREHENSIVE METABOLIC [id number] 00:00:00 Test Item Value Reference Range Interpretation Comments GLUCOSE (test code = 2217) 82 MG/DL BUN (test code = 2208) 26 MG/DL CREATININE (test code = 2214) 1.38 MG/DL eGFR (2020 CKD-EPI) (test code 51 ML/MIN/1.73 = 25550) CALC BUN/CREAT (test code = 19 RATIO 2235) SODIUM (test code = 2231) 142 MEQ/L POTASSIUM (test code = 2228) 4.0 MEQ/L CHLORIDE (test code = 2215) 106 MEQ/L CARBON DIOXIDE (test code = 23 MEQ/L 220) CALCIUM (test code = 2209) 9.2 MG/DL PROTEIN, TOTAL (test code = 7.3 G/DL 2229) ALBUMIN (test code = 2201) 4.3 G/DL CALC GLOBULIN (test code = 3.0 G/DL 2240) CALC A/G RATIO (test code = 1.4 RATIO 2234) BILIRUBIN, TOTAL (test code = 1.3 MG/DL 2207) ALKALINE PHOSPHATASE (test 72 U/L code = 2204) AST (test code = 2218) 32 U/L ALT (test code = 2219) 15 U/L COMPREHENSIVE METABOLIC [id number] 00:00:00 Test Item Value Reference Range Interpretation Comments GLUCOSE (test code = 2217) 82 MG/DL BUN (test code = 2208) 26 MG/DL CREATININE (test code = 2214) 1.38 MG/DL eGFR (2020 CKD-EPI) (test code 51 ML/MIN/1.73 = 19516) CALC BUN/CREAT (test code = 19 RATIO 2235) SODIUM (test code = 2231) 142 MEQ/L POTASSIUM (test code = 2228) 4.0 MEQ/L CHLORIDE (test code = 2215) 106 MEQ/L CARBON DIOXIDE (test code = 23 MEQ/L 2206) CALCIUM (test code = 2209) 9.2 MG/DL PROTEIN, TOTAL (test code = 7.3 G/DL 9) ALBUMIN (test code = 2201) 4.3 G/DL CALC GLOBULIN (test code = 3.0 G/DL 2240) CALC A/G RATIO (test code = 1.4 RATIO 2234) BILIRUBIN, TOTAL (test code = 1.3 MG/DL 2207) ALKALINE PHOSPHATASE (test 72 U/L code = 2204) AST (test code = 2218) 32 U/L ALT (test code = 2219) 15 U/L TSH, THIRD [id number] 06:05:01 Test Item Value Reference Range Interpretation Comments TSH, THIRD 1.300 UIU/ML 0.400-4.100 UNLESS OTHERW ISE GENERATION (test INDICATED, ALL TESTING code = 2821) PERFORMED [facility], [place]. [address] [facility] [place] [address] [facility] DIRECTOR: NORBERT LERMA M.D. CLIA NUMBER [id number] CAP ACCREDITATION N O. [id number] COMPREHENSIVE METABOLIC [id number] 04:12:28 Test Item Value Reference Range Interpretation Comments GLUCOSE (test code = 96 MG/DL 70-99 2216) BUN (test code = 31 MG/DL 8-23 H 2207) CREATININE (test 1.46 MG/DL 0.80-1.40 H EFFECTIVE code = 2214) 04/29/2021, [facility] HAS IMPLEMENTED THE NKF-ASN RECOMME NDED KD-EPI EGF R REFIT CALCULATI ON THAT DOES NOT INCLUDE A COEFFICIENT FOR RACE. FOR MORE INFORMATION, SE E ANNOUNCEMENT [email or web address]EGFR_CALC eGFR (2020 CKD-EPI) 48 ML/MIN/1.73 >60 L (test code = 83739) CALC BUN/CREAT (test 21 RATIO 6-28 code = 2235) SODIUM (test code = 143 MEQ/L 513-691 4054) POTASSIUM (test code 4.4 MEQ/L 3.5-5.4 = 222) CHLORIDE (test code 104 MEQ/L 95-107 = 2215) CARBON DIOXIDE (test 25 MEQ/L 19-31 code = 2206) CALCIUM (test code = 10.6 MG/DL 8.5-10.5 H 2208) PROTEIN, TOTAL (test 7.9 G/DL 6.1-8.3 code = 2229) ALBUMIN (test code = 4.6 G/DL 3.5-5.2 2200) CALC GLOBULIN (test 3.3 G/DL 1.9-3.7 code = 2240) CALC A/G RATIO (test 1.4 RATIO 1.0-2.6 code = 2234) BILIRUBIN, TOTAL 1.2 MG/DL See_Comment [Automated message] (test code = 2207) The syste m which generated this result transmit carla reference range : <=1.2. The refe rence range was not u sed to interpret th is result as normal/abnormal . ALKALINE PHOSPHATASE 94 U/L 40-125 (test code = 2204) AST (test code = 30 U/L 9-50 2217) ALT (test code = 14 U/L 5-50 2218) LIPID [id number] 04:12:28 Test Item Value Reference Range Interpretation Comments CHOLESTEROL (test 138 MG/DL <200 code = 2210) TRIGLYCERIDES (test 139 MG/DL <150 code = 2232) HDL CHOLESTEROL (test 39 MG/DL >39 L code = 2220) CALC LDL CHOL (test 77 MG/DL <100 NOTE: C ALCULATED LDL code = 2237) IS BASED ON MARILU-ROJAS METHOD WHICHINCLUDES ADJUSTABLE TRIGLYCERIDE:VL DL CHOLESTEROL RAT IO.THIS FACTOR VARIES B Y MEASURED TRIGLY CERIDE AND NON-HDLCHOL ESTEROL CONCENTRATIONS WITH INCREASED CALCU LATED LDL SEENIN HIGH ER TRIGLYCERIDE OR LOWER NON-HDL SPECIME NS. FOR MOREINFORMATION , SEE CLIENT ANNOUNCE MENT AT [email or web address] RISK RATIO LDL/HDL 1.97 RATIO <3.55 (test code = 2238) COMPREHENSIVE METABOLIC [id number] 00:00:00 Test Item Value Reference Range Interpretation Comments GLUCOSE (test code = 2217) 96 MG/DL BUN (test code = 2208) 31 MG/DL CREATININE (test code = 2214) 1.46 MG/DL eGFR (2020 CKD-EPI) (test code 48 ML/MIN/1.73 = 85200) CALC BUN/CREAT (test code = 21 RATIO 2235) SODIUM (test code = 2231) 143 MEQ/L POTASSIUM (test code = 2228) 4.4 MEQ/L CHLORIDE (test code = 2215) 104 MEQ/L CARBON DIOXIDE (test code = 25 MEQ/L 2205) CALCIUM (test code = 2209) 10.6 MG/DL PROTEIN, TOTAL (test code = 7.9 G/DL 2228) ALBUMIN (test code = 2201) 4.6 G/DL CALC GLOBULIN (test code = 3.3 G/DL 2240) CALC A/G RATIO (test code = 1.4 RATIO 2234) BILIRUBIN, TOTAL (test code = 1.2 MG/DL 2206) ALKALINE PHOSPHATASE (test 94 U/L code = 2204) AST (test code = 2218) 30 U/L ALT (test code = 2219) 14 U/L COMPREHENSIVE METABOLIC [id number] 00:00:00 Test Item Value Reference Range Interpretation Comments GLUCOSE (test code = 2217) 96 MG/DL BUN (test code = 2208) 31 MG/DL CREATININE (test code = 2214) 1.46 MG/DL eGFR (2020 CKD-EPI) (test code 48 ML/MIN/1.73 = 12170) CALC BUN/CREAT (test code = 21 RATIO 2235) SODIUM (test code = 2231) 143 MEQ/L POTASSIUM (test code = 2228) 4.4 MEQ/L CHLORIDE (test code = 2215) 104 MEQ/L CARBON DIOXIDE (test code = 25 MEQ/L 2205) CALCIUM (test code = 2209) 10.6 MG/DL PROTEIN, TOTAL (test code = 7.9 G/DL 2228) ALBUMIN (test code = 220) 4.6 G/DL CALC GLOBULIN (test code = 3.3 G/DL 2239) CALC A/G RATIO (test code = 1.4 RATIO 2233) BILIRUBIN, TOTAL (test code = 1.2 MG/DL 2206) ALKALINE PHOSPHATASE (test 94 U/L code = 2204) AST (test code = 2218) 30 U/L ALT (test code = 2219) 14 U/L LIPID [id number] 00:00:00 Test Item Value Reference Range Interpretation Comments CHOLESTEROL (test code = 2210) 138 MG/DL TRIGLYCERIDES (test code = 2232) 139 MG/DL HDL CHOLESTEROL (test code = 2220) 39 MG/DL CALC LDL CHOL (test code = 2237) 77 MG/DL RISK RATIO LDL/HDL (test code = 1.97 RATIO 2238) LIPID [id number] 00:00:00 Test Item Value Reference Range Interpretation Comments CHOLESTEROL (test code = 2210) 138 MG/DL TRIGLYCERIDES (test code = 2232) 139 MG/DL HDL CHOLESTEROL (test code = 2220) 39 MG/DL CALC LDL CHOL (test code = 2237) 77 MG/DL RISK RATIO LDL/HDL (test code = 1.97 RATIO 2238) [id number] 00:00:00 Test Item Value Reference Range Interpretation Comments TSH, THIRD GENERATION (test code 1.300 UIU/ML = 2821) [id number] 00:00:00 Test Item Value Reference Range Interpretation Comments TSH, THIRD GENERATION (test code 1.300 UIU/ML = 2821) [id number] 00:00:00 Test Item Value Reference Range Interpretation Comments TSH, THIRD GENERATION (test code 1.300 UIU/ML = 2821) COMPREHENSIVE METABOLIC [id number] 00:00:00 Test Item Value Reference Range Interpretation Comments GLUCOSE (test code = 2217) 96 MG/DL BUN (test code = 2208) 31 MG/DL CREATININE (test code = 2214) 1.46 MG/DL eGFR (2020 CKD-EPI) (test code 48 ML/MIN/1.73 = 78076) CALC BUN/CREAT (test code = 21 RATIO 2235) SODIUM (test code = 2231) 143 MEQ/L POTASSIUM (test code = 2228) 4.4 MEQ/L CHLORIDE (test code = 2215) 104 MEQ/L CARBON DIOXIDE (test code = 25 MEQ/L 2205) CALCIUM (test code = 2209) 10.6 MG/DL PROTEIN, TOTAL (test code = 7.9 G/DL 2228) ALBUMIN (test code = 2201) 4.6 G/DL CALC GLOBULIN (test code = 3.3 G/DL 2240) CALC A/G RATIO (test code = 1.4 RATIO 2234) BILIRUBIN, TOTAL (test code = 1.2 MG/DL 2206) ALKALINE PHOSPHATASE (test 94 U/L code = 2204) AST (test code = 2218) 30 U/L ALT (test code = 2219) 14 U/L COMPREHENSIVE METABOLIC [id number] 00:00:00 Test Item Value Reference Range Interpretation Comments GLUCOSE (test code = 2217) 96 MG/DL BUN (test code = 2208) 31 MG/DL CREATININE (test code = 2214) 1.46 MG/DL eGFR (2020 CKD-EPI) (test code 48 ML/MIN/1.73 = 41112) CALC BUN/CREAT (test code = 21 RATIO 2235) SODIUM (test code = 2231) 143 MEQ/L POTASSIUM (test code = 2228) 4.4 MEQ/L CHLORIDE (test code = 2215) 104 MEQ/L CARBON DIOXIDE (test code = 25 MEQ/L 2205) CALCIUM (test code = 2209) 10.6 MG/DL PROTEIN, TOTAL (test code = 7.9 G/DL 2228) ALBUMIN (test code = 2201) 4.6 G/DL CALC GLOBULIN (test code = 3.3 G/DL 2240) CALC A/G RATIO (test code = 1.4 RATIO 2234) BILIRUBIN, TOTAL (test code = 1.2 MG/DL 2206) ALKALINE PHOSPHATASE (test 94 U/L code = 2204) AST (test code = 2218) 30 U/L ALT (test code = 2219) 14 U/L LIPID [id number] 00:00:00 Test Item Value Reference Range Interpretation Comments CHOLESTEROL (test code = 2210) 138 MG/DL TRIGLYCERIDES (test code = 2232) 139 MG/DL HDL CHOLESTEROL (test code = 2220) 39 MG/DL CALC LDL CHOL (test code = 2237) 77 MG/DL RISK RATIO LDL/HDL (test code = 1.97 RATIO 2238) LIPID [id number] 00:00:00 Test Item Value Reference Range Interpretation Comments CHOLESTEROL (test code = 2210) 138 MG/DL TRIGLYCERIDES (test code = 2232) 139 MG/DL HDL CHOLESTEROL (test code = 2220) 39 MG/DL CALC LDL CHOL (test code = 2237) 77 MG/DL RISK RATIO LDL/HDL (test code = 1.97 RATIO 2238) [id number] 00:00:00 Test Item Value Reference Range Interpretation Comments TSH, THIRD GENERATION (test code 1.300 UIU/ML = 2821) [id number] 00:00:00 Test Item Value Reference Range Interpretation Comments TSH, THIRD GENERATION (test code 1.300 UIU/ML = 2821) [id number] 00:00:00 Test Item Value Reference Range Interpretation Comments TSH, THIRD GENERATION (test code 1.300 UIU/ML = 2821) HEMOGLOBIN [id number] 00:00:00 Test Item Value Reference Range Interpretation Comments HEMOGLOBIN A1c (test code = 44158) 5.9 % HEMOGLOBIN [id number] 00:00:00 Test Item Value Reference Range Interpretation Comments HEMOGLOBIN A1c (test code = 63137) 5.9 % HEMOGLOBIN [id number] 00:00:00 Test Item Value Reference Range Interpretation Comments HEMOGLOBIN A1c (test code = 39698) 5.9 % LIPID [id number] 00:00:00 Test Item Value Reference Range Interpretation Comments CHOLESTEROL (test code = 2210) 135 MG/DL TRIGLYCERIDES (test code = 2232) 164 MG/DL HDL CHOLESTEROL (test code = 2220) 42 MG/DL CALC LDL CHOL (test code = 2237) 69 MG/DL RISK RATIO LDL/HDL (test code = 1.64 RATIO 2238) LIPID [id number] 00:00:00 Test Item Value Reference Range Interpretation Comments CHOLESTEROL (test code = 2210) 135 MG/DL TRIGLYCERIDES (test code = 2232) 164 MG/DL HDL CHOLESTEROL (test code = 2220) 42 MG/DL CALC LDL CHOL (test code = 2237) 69 MG/DL RISK RATIO LDL/HDL (test code = 1.64 RATIO 2238) COMPREHENSIVE METABOLIC [id number] 00:00:00 Test Item Value Reference Range Interpretation Comments GLUCOSE (test code = 2217) 99 MG/DL BUN (test code = 2208) 20 MG/DL CREATININE (test code = 2214) 1.18 MG/DL eGFR AMER. (test code 67 ML/MIN/1.73 = 05688) eGFR NON- AMER. (test 58 ML/MIN/1.73 code = 15513) CALC BUN/CREAT (test code = 17 RATIO 2235) SODIUM (test code = 2231) 143 MEQ/L POTASSIUM (test code = 2228) 4.2 MEQ/L CHLORIDE (test code = 2215) 104 MEQ/L CARBON DIOXIDE (test code = 27 MEQ/L 2205) CALCIUM (test code = 2209) 9.7 MG/DL PROTEIN, TOTAL (test code = 7.6 G/DL 2228) ALBUMIN (test code = 2201) 4.4 G/DL CALC GLOBULIN (test code = 3.2 G/DL 2240) CALC A/G RATIO (test code = 1.4 RATIO 2234) BILIRUBIN, TOTAL (test code = 1.1 MG/DL 2206) ALKALINE PHOSPHATASE (test 67 U/L code = 2204) AST (test code = 2218) 39 U/L ALT (test code = 2219) 12 U/L COMPREHENSIVE METABOLIC [id number] 00:00:00 Test Item Value Reference Range Interpretation Comments GLUCOSE (test code = 2217) 99 MG/DL BUN (test code = 2208) 20 MG/DL CREATININE (test code = 2214) 1.18 MG/DL eGFR AMER. (test code 67 ML/MIN/1.73 = 39517) eGFR NON- AMER. (test 58 ML/MIN/1.73 code = 55263) CALC BUN/CREAT (test code = 17 RATIO 2235) SODIUM (test code = 2231) 143 MEQ/L POTASSIUM (test code = 2228) 4.2 MEQ/L CHLORIDE (test code = 2215) 104 MEQ/L CARBON DIOXIDE (test code = 27 MEQ/L 2205) CALCIUM (test code = 2209) 9.7 MG/DL PROTEIN, TOTAL (test code = 7.6 G/DL 2228) ALBUMIN (test code = 2201) 4.4 G/DL CALC GLOBULIN (test code = 3.2 G/DL 224) CALC A/G RATIO (test code = 1.4 RATIO 2234) BILIRUBIN, TOTAL (test code = 1.1 MG/DL 2206) ALKALINE PHOSPHATASE (test 67 U/L code = 2204) AST (test code = 2218) 39 U/L ALT (test code = 2219) 12 U/L [id number] 00:00:00 Test Item Value Reference Range Interpretation Comments TSH, THIRD GENERATION (test code 1.290 UIU/ML = 2821) [id number] 00:00:00 Test Item Value Reference Range Interpretation Comments TSH, THIRD GENERATION (test code 1.290 UIU/ML = 2821) [id number] 00:00:00 Test Item Value Reference Range Interpretation Comments TSH, THIRD GENERATION (test code 1.290 UIU/ML = 2821) HEMOGLOBIN [id number] 00:00:00 Test Item Value Reference Range Interpretation Comments HEMOGLOBIN A1c (test code = 03653) 5.9 % HEMOGLOBIN [id number] 00:00:00 Test Item Value Reference Range Interpretation Comments HEMOGLOBIN A1c (test code = 60558) 5.9 % HEMOGLOBIN [id number] 00:00:00 Test Item Value Reference Range Interpretation Comments HEMOGLOBIN A1c (test code = 79913) 5.9 % LIPID [id number] 00:00:00 Test Item Value Reference Range Interpretation Comments CHOLESTEROL (test code = 2210) 135 MG/DL TRIGLYCERIDES (test code = 2232) 164 MG/DL HDL CHOLESTEROL (test code = 2220) 42 MG/DL CALC LDL CHOL (test code = 2237) 69 MG/DL RISK RATIO LDL/HDL (test code = 1.64 RATIO 2238) LIPID [id number] 00:00:00 Test Item Value Reference Range Interpretation Comments CHOLESTEROL (test code = 2210) 135 MG/DL TRIGLYCERIDES (test code = 2232) 164 MG/DL HDL CHOLESTEROL (test code = 2220) 42 MG/DL CALC LDL CHOL (test code = 2237) 69 MG/DL RISK RATIO LDL/HDL (test code = 1.64 RATIO 2238) COMPREHENSIVE METABOLIC [id number] 00:00:00 Test Item Value Reference Range Interpretation Comments GLUCOSE (test code = 2217) 99 MG/DL BUN (test code = 2208) 20 MG/DL CREATININE (test code = 2214) 1.18 MG/DL eGFR AMER. (test code 67 ML/MIN/1.73 = 34827) eGFR NON- AMER. (test 58 ML/MIN/1.73 code = 29415) CALC BUN/CREAT (test code = 17 RATIO 2235) SODIUM (test code = 2231) 143 MEQ/L POTASSIUM (test code = 2228) 4.2 MEQ/L CHLORIDE (test code = 2215) 104 MEQ/L CARBON DIOXIDE (test code = 27 MEQ/L 2205) CALCIUM (test code = 2209) 9.7 MG/DL PROTEIN, TOTAL (test code = 7.6 G/DL 2228) ALBUMIN (test code = 2201) 4.4 G/DL CALC GLOBULIN (test code = 3.2 G/DL 2240) CALC A/G RATIO (test code = 1.4 RATIO 2234) BILIRUBIN, TOTAL (test code = 1.1 MG/DL 2207) ALKALINE PHOSPHATASE (test 67 U/L code = 2204) AST (test code = 2218) 39 U/L ALT (test code = 2219) 12 U/L COMPREHENSIVE METABOLIC [id number] 00:00:00 Test Item Value Reference Range Interpretation Comments GLUCOSE (test code = 2217) 99 MG/DL BUN (test code = 2208) 20 MG/DL CREATININE (test code = 2214) 1.18 MG/DL eGFR AMER. (test code 67 ML/MIN/1.73 = 68220) eGFR NON- AMER. (test 58 ML/MIN/1.73 code = 08419) CALC BUN/CREAT (test code = 17 RATIO 2235) SODIUM (test code = 2231) 143 MEQ/L POTASSIUM (test code = 2228) 4.2 MEQ/L CHLORIDE (test code = 2215) 104 MEQ/L CARBON DIOXIDE (test code = 27 MEQ/L 2205) CALCIUM (test code = 2209) 9.7 MG/DL PROTEIN, TOTAL (test code = 7.6 G/DL 2228) ALBUMIN (test code = 2201) 4.4 G/DL CALC GLOBULIN (test code = 3.2 G/DL 2239) CALC A/G RATIO (test code = 1.4 RATIO 2233) BILIRUBIN, TOTAL (test code = 1.1 MG/DL 2206) ALKALINE PHOSPHATASE (test 67 U/L code = 2203) AST (test code = 2218) 39 U/L ALT (test code = 2219) 12 U/L [id number] 00:00:00 Test Item Value Reference Range Interpretation Comments TSH, THIRD GENERATION (test code 1.290 UIU/ML = 2821) [id number] 00:00:00 Test Item Value Reference Range Interpretation Comments TSH, THIRD GENERATION (test code 1.290 UIU/ML = 2821) [id number] 00:00:00 Test Item Value Reference Range Interpretation Comments TSH, THIRD GENERATION (test code 1.290 UIU/ML = 2821) HEMOGLOBIN [id number] 00:00:00 Test Item Value Reference Range Interpretation Comments HEMOGLOBIN A1c (test code = 20909) 5.9 % HEMOGLOBIN [id number] 00:00:00 Test Item Value Reference Range Interpretation Comments HEMOGLOBIN A1c (test code = 10407) 5.9 % HEMOGLOBIN [id number] 00:00:00 Test Item Value Reference Range Interpretation Comments HEMOGLOBIN A1c (test code = 15094) 5.9 % CBC W/AUTO [id number] 00:00:00 Test Item Value Reference Range Interpretation Comments WBC (test code = 1001) 5.6 K/UL RBC (test code = 1002) 4.22 M/UL HEMOGLOBIN (test code = 1003) 12.3 G/DL HEMATOCRIT (test code = 1004) 37.5 % MCV (test code = 1005) 88.9 fL MCH (test code = 1006) 29.1 PG MCHC (test code = 1007) 32.8 G/DL RDW (test code = 1038) 15.0 % NEUTROPHILS (test code = 1008) 65.1 % LYMPHOCYTES (test code = 1010) 21.1 % MONOCYTES (test code = 1011) 9.9 % EOSINOPHILS (test code = 1012) 2.8 % BASOPHILS (test code = 1013) 1.1 % PLATELET COUNT (test code = 1015) 166 K/UL CBC W/AUTO [id number] 00:00:00 Test Item Value Reference Range Interpretation Comments WBC (test code = 1001) 5.6 K/UL RBC (test code = 1002) 4.22 M/UL HEMOGLOBIN (test code = 1003) 12.3 G/DL HEMATOCRIT (test code = 1004) 37.5 % MCV (test code = 1005) 88.9 fL MCH (test code = 1006) 29.1 PG MCHC (test code = 1007) 32.8 G/DL RDW (test code = 1038) 15.0 % NEUTROPHILS (test code = 1008) 65.1 % LYMPHOCYTES (test code = 1010) 21.1 % MONOCYTES (test code = 1011) 9.9 % EOSINOPHILS (test code = 1012) 2.8 % BASOPHILS (test code = 1013) 1.1 % PLATELET COUNT (test code = 1015) 166 K/UL CBC W/AUTO [id number] 00:00:00 Test Item Value Reference Range Interpretation Comments WBC (test code = 1001) 5.6 K/UL RBC (test code = 1002) 4.22 M/UL HEMOGLOBIN (test code = 1003) 12.3 G/DL HEMATOCRIT (test code = 1004) 37.5 % MCV (test code = 1005) 88.9 fL MCH (test code = 1006) 29.1 PG MCHC (test code = 1007) 32.8 G/DL RDW (test code = 1038) 15.0 % NEUTROPHILS (test code = 1008) 65.1 % LYMPHOCYTES (test code = 1010) 21.1 % MONOCYTES (test code = 1011) 9.9 % EOSINOPHILS (test code = 1012) 2.8 % BASOPHILS (test code = 1013) 1.1 % PLATELET COUNT (test code = 1015) 166 K/UL COMPREHENSIVE METABOLIC [id number] 00:00:00 Test Item Value Reference Range Interpretation Comments GLUCOSE (test code = 2217) 97 MG/DL BUN (test code = 2208) 20 MG/DL CREATININE (test code = 2214) 1.16 MG/DL eGFR AMER. (test code 69 ML/MIN/1.73 = 47836) eGFR NON- AMER. (test 59 ML/MIN/1.73 code = 36284) CALC BUN/CREAT (test code = 17 RATIO 2235) SODIUM (test code = 2231) 142 MEQ/L POTASSIUM (test code = 2228) 4.4 MEQ/L CHLORIDE (test code = 2215) 106 MEQ/L CARBON DIOXIDE (test code = 25 MEQ/L 220) CALCIUM (test code = 2209) 9.2 MG/DL PROTEIN, TOTAL (test code = 7.2 G/DL 2228) ALBUMIN (test code = 2201) 3.9 G/DL CALC GLOBULIN (test code = 3.3 G/DL 2240) CALC A/G RATIO (test code = 1.2 RATIO 2234) BILIRUBIN, TOTAL (test code = 0.8 MG/DL 2206) ALKALINE PHOSPHATASE (test 113 U/L code = 2204) AST (test code = 2218) 25 U/L ALT (test code = 2219) 19 U/L COMPREHENSIVE METABOLIC [id number] 00:00:00 Test Item Value Reference Range Interpretation Comments GLUCOSE (test code = 2217) 97 MG/DL BUN (test code = 2208) 20 MG/DL CREATININE (test code = 2214) 1.16 MG/DL eGFR AMER. (test code 69 ML/MIN/1.73 = 03690) eGFR NON- AMER. (test 59 ML/MIN/1.73 code = 49075) CALC BUN/CREAT (test code = 17 RATIO 2235) SODIUM (test code = 2231) 142 MEQ/L POTASSIUM (test code = 2228) 4.4 MEQ/L CHLORIDE (test code = 2215) 106 MEQ/L CARBON DIOXIDE (test code = 25 MEQ/L 2206) CALCIUM (test code = 2209) 9.2 MG/DL PROTEIN, TOTAL (test code = 7.2 G/DL 2228) ALBUMIN (test code = 2201) 3.9 G/DL CALC GLOBULIN (test code = 3.3 G/DL 2240) CALC A/G RATIO (test code = 1.2 RATIO 2234) BILIRUBIN, TOTAL (test code = 0.8 MG/DL 7) ALKALINE PHOSPHATASE (test 113 U/L code = 2204) AST (test code = 2218) 25 U/L ALT (test code = 2219) 19 U/L LIPID [id number] 00:00:00 Test Item Value Reference Range Interpretation Comments CHOLESTEROL (test code = 2210) 136 MG/DL TRIGLYCERIDES (test code = 2232) 142 MG/DL HDL CHOLESTEROL (test code = 2220) 43 MG/DL CALC LDL CHOL (test code = 2237) 70 MG/DL RISK RATIO LDL/HDL (test code = 1.63 RATIO 2238) LIPID [id number] 00:00:00 Test Item Value Reference Range Interpretation Comments CHOLESTEROL (test code = 2210) 136 MG/DL TRIGLYCERIDES (test code = 2232) 142 MG/DL HDL CHOLESTEROL (test code = 2220) 43 MG/DL CALC LDL CHOL (test code = 2237) 70 MG/DL RISK RATIO LDL/HDL (test code = 1.63 RATIO 2238) [id number] 00:00:00 Test Item Value Reference Range Interpretation Comments TSH, THIRD GENERATION (test code 1.420 UIU/ML = 2821) [id number] 00:00:00 Test Item Value Reference Range Interpretation Comments TSH, THIRD GENERATION (test code 1.420 UIU/ML = 2821) [id number] 00:00:00 Test Item Value Reference Range Interpretation Comments TSH, THIRD GENERATION (test code 1.420 UIU/ML = 2821) HEMOGLOBIN [id number] 00:00:00 Test Item Value Reference Range Interpretation Comments HEMOGLOBIN A1c (test code = 11890) 5.9 % HEMOGLOBIN [id number] 00:00:00 Test Item Value Reference Range Interpretation Comments HEMOGLOBIN A1c (test code = 01652) 5.9 % HEMOGLOBIN [id number] 00:00:00 Test Item Value Reference Range Interpretation Comments HEMOGLOBIN A1c (test code = 62308) 5.9 % CBC W/AUTO [id number] 00:00:00 Test Item Value Reference Range Interpretation Comments WBC (test code = 1001) 5.6 K/UL RBC (test code = 1002) 4.22 M/UL HEMOGLOBIN (test code = 1003) 12.3 G/DL HEMATOCRIT (test code = 1004) 37.5 % MCV (test code = 1005) 88.9 fL MCH (test code = 1006) 29.1 PG MCHC (test code = 1007) 32.8 G/DL RDW (test code = 1038) 15.0 % NEUTROPHILS (test code = 1008) 65.1 % LYMPHOCYTES (test code = 1010) 21.1 % MONOCYTES (test code = 1011) 9.9 % EOSINOPHILS (test code = 1012) 2.8 % BASOPHILS (test code = 1013) 1.1 % PLATELET COUNT (test code = 1015) 166 K/UL CBC W/AUTO [id number] 00:00:00 Test Item Value Reference Range Interpretation Comments WBC (test code = 1001) 5.6 K/UL RBC (test code = 1002) 4.22 M/UL HEMOGLOBIN (test code = 1003) 12.3 G/DL HEMATOCRIT (test code = 1004) 37.5 % MCV (test code = 1005) 88.9 fL MCH (test code = 1006) 29.1 PG MCHC (test code = 1007) 32.8 G/DL RDW (test code = 1038) 15.0 % NEUTROPHILS (test code = 1008) 65.1 % LYMPHOCYTES (test code = 1010) 21.1 % MONOCYTES (test code = 1011) 9.9 % EOSINOPHILS (test code = 1012) 2.8 % BASOPHILS (test code = 1013) 1.1 % PLATELET COUNT (test code = 1015) 166 K/UL CBC W/AUTO [id number] 00:00:00 Test Item Value Reference Range Interpretation Comments WBC (test code = 1001) 5.6 K/UL RBC (test code = 1002) 4.22 M/UL HEMOGLOBIN (test code = 1003) 12.3 G/DL HEMATOCRIT (test code = 1004) 37.5 % MCV (test code = 1005) 88.9 fL MCH (test code = 1006) 29.1 PG MCHC (test code = 1007) 32.8 G/DL RDW (test code = 1038) 15.0 % NEUTROPHILS (test code = 1008) 65.1 % LYMPHOCYTES (test code = 1010) 21.1 % MONOCYTES (test code = 1011) 9.9 % EOSINOPHILS (test code = 1012) 2.8 % BASOPHILS (test code = 1013) 1.1 % PLATELET COUNT (test code = 1015) 166 K/UL COMPREHENSIVE METABOLIC [id number] 00:00:00 Test Item Value Reference Range Interpretation Comments GLUCOSE (test code = 2217) 97 MG/DL BUN (test code = 2208) 20 MG/DL CREATININE (test code = 2214) 1.16 MG/DL eGFR AMER. (test code 69 ML/MIN/1.73 = 82280) eGFR NON- AMER. (test 59 ML/MIN/1.73 code = 39944) CALC BUN/CREAT (test code = 17 RATIO 2235) SODIUM (test code = 2231) 142 MEQ/L POTASSIUM (test code = 2228) 4.4 MEQ/L CHLORIDE (test code = 2215) 106 MEQ/L CARBON DIOXIDE (test code = 25 MEQ/L 2206) CALCIUM (test code = 2209) 9.2 MG/DL PROTEIN, TOTAL (test code = 7.2 G/DL 2228) ALBUMIN (test code = 2201) 3.9 G/DL CALC GLOBULIN (test code = 3.3 G/DL 2240) CALC A/G RATIO (test code = 1.2 RATIO 4) BILIRUBIN, TOTAL (test code = 0.8 MG/DL 2206) ALKALINE PHOSPHATASE (test 113 U/L code = 2204) AST (test code = 2218) 25 U/L ALT (test code = 2219) 19 U/L COMPREHENSIVE METABOLIC [id number] 00:00:00 Test Item Value Reference Range Interpretation Comments GLUCOSE (test code = 2217) 97 MG/DL BUN (test code = 2208) 20 MG/DL CREATININE (test code = 2214) 1.16 MG/DL eGFR AMER. (test code 69 ML/MIN/1.73 = 82360) eGFR NON- AMER. (test 59 ML/MIN/1.73 code = 83080) CALC BUN/CREAT (test code = 17 RATIO 2235) SODIUM (test code = 2231) 142 MEQ/L POTASSIUM (test code = 2228) 4.4 MEQ/L CHLORIDE (test code = 2215) 106 MEQ/L CARBON DIOXIDE (test code = 25 MEQ/L 2206) CALCIUM (test code = 2209) 9.2 MG/DL PROTEIN, TOTAL (test code = 7.2 G/DL 2228) ALBUMIN (test code = 2201) 3.9 G/DL CALC GLOBULIN (test code = 3.3 G/DL 2239) CALC A/G RATIO (test code = 1.2 RATIO 2234) BILIRUBIN, TOTAL (test code = 0.8 MG/DL 2206) ALKALINE PHOSPHATASE (test 113 U/L code = 2204) AST (test code = 2218) 25 U/L ALT (test code = 2219) 19 U/L LIPID [id number] 00:00:00 Test Item Value Reference Range Interpretation Comments CHOLESTEROL (test code = 2210) 136 MG/DL TRIGLYCERIDES (test code = 2232) 142 MG/DL HDL CHOLESTEROL (test code = 2220) 43 MG/DL CALC LDL CHOL (test code = 2237) 70 MG/DL RISK RATIO LDL/HDL (test code = 1.63 RATIO 2238) LIPID [id number] 00:00:00 Test Item Value Reference Range Interpretation Comments CHOLESTEROL (test code = 2210) 136 MG/DL TRIGLYCERIDES (test code = 2232) 142 MG/DL HDL CHOLESTEROL (test code = 2220) 43 MG/DL CALC LDL CHOL (test code = 2237) 70 MG/DL RISK RATIO LDL/HDL (test code = 1.63 RATIO 2238) [id number] 00:00:00 Test Item Value Reference Range Interpretation Comments TSH, THIRD GENERATION (test code 1.420 UIU/ML = 2821) [id number] 00:00:00 Test Item Value Reference Range Interpretation Comments TSH, THIRD GENERATION (test code 1.420 UIU/ML = 2821) [id number] 00:00:00 Test Item Value Reference Range Interpretation Comments TSH, THIRD GENERATION (test code 1.420 UIU/ML = 2821) CBC W/AUTO [id number] 00:00:00 Test Item Value Reference Range Interpretation Comments WBC (test code = 1001) 5.2 K/UL RBC (test code = 1002) 4.47 M/UL HEMOGLOBIN (test code = 1003) 13.2 G/DL HEMATOCRIT (test code = 1004) 39.6 % MCV (test code = 1005) 88.6 fL MCH (test code = 1006) 29.5 PG MCHC (test code = 1007) 33.3 G/DL RDW (test code = 1038) 14.5 % NEUTROPHILS (test code = 1008) 57.4 % LYMPHOCYTES (test code = 1010) 28.1 % MONOCYTES (test code = 1011) 8.3 % EOSINOPHILS (test code = 1012) 5.2 % BASOPHILS (test code = 1013) 1.0 % PLATELET COUNT (test code = 1015) 112 K/UL CBC W/AUTO [id number] 00:00:00 Test Item Value Reference Range Interpretation Comments WBC (test code = 1001) 5.2 K/UL RBC (test code = 1002) 4.47 M/UL HEMOGLOBIN (test code = 1003) 13.2 G/DL HEMATOCRIT (test code = 1004) 39.6 % MCV (test code = 1005) 88.6 fL MCH (test code = 1006) 29.5 PG MCHC (test code = 1007) 33.3 G/DL RDW (test code = 1038) 14.5 % NEUTROPHILS (test code = 1008) 57.4 % LYMPHOCYTES (test code = 1010) 28.1 % MONOCYTES (test code = 1011) 8.3 % EOSINOPHILS (test code = 1012) 5.2 % BASOPHILS (test code = 1013) 1.0 % PLATELET COUNT (test code = 1015) 112 K/UL CBC W/AUTO [id number] 00:00:00 Test Item Value Reference Range Interpretation Comments WBC (test code = 1001) 5.2 K/UL RBC (test code = 1002) 4.47 M/UL HEMOGLOBIN (test code = 1003) 13.2 G/DL HEMATOCRIT (test code = 1004) 39.6 % MCV (test code = 1005) 88.6 fL MCH (test code = 1006) 29.5 PG MCHC (test code = 1007) 33.3 G/DL RDW (test code = 1038) 14.5 % NEUTROPHILS (test code = 1008) 57.4 % LYMPHOCYTES (test code = 1010) 28.1 % MONOCYTES (test code = 1011) 8.3 % EOSINOPHILS (test code = 1012) 5.2 % BASOPHILS (test code = 1013) 1.0 % PLATELET COUNT (test code = 1015) 112 K/UL COMPREHENSIVE METABOLIC [id number] 00:00:00 Test Item Value Reference Range Interpretation Comments GLUCOSE (test code = 2217) 93 MG/DL BUN (test code = 2208) 22 MG/DL CREATININE (test code = 2214) 1.40 MG/DL eGFR AMER. (test code 55 ML/MIN/1.73 = 85155) eGFR NON- AMER. (test 47 ML/MIN/1.73 code = 53947) CALC BUN/CREAT (test code = 16 RATIO 2235) SODIUM (test code = 2231) 139 MEQ/L POTASSIUM (test code = 2228) 4.4 MEQ/L CHLORIDE (test code = 2215) 102 MEQ/L CARBON DIOXIDE (test code = 25 MEQ/L 220) CALCIUM (test code = 2209) 9.5 MG/DL PROTEIN, TOTAL (test code = 7.2 G/DL 2228) ALBUMIN (test code = 2201) 4.3 G/DL CALC GLOBULIN (test code = 2.9 G/DL 224) CALC A/G RATIO (test code = 1.5 RATIO 2234) BILIRUBIN, TOTAL (test code = 1.0 MG/DL 2206) ALKALINE PHOSPHATASE (test 72 U/L code = 2204) AST (test code = 2218) 27 U/L ALT (test code = 2219) 15 U/L COMPREHENSIVE METABOLIC [id number] 00:00:00 Test Item Value Reference Range Interpretation Comments GLUCOSE (test code = 2217) 93 MG/DL BUN (test code = 2208) 22 MG/DL CREATININE (test code = 2214) 1.40 MG/DL eGFR AMER. (test code 55 ML/MIN/1.73 = 90853) eGFR NON- AMER. (test 47 ML/MIN/1.73 code = 71544) CALC BUN/CREAT (test code = 16 RATIO 2235) SODIUM (test code = 2231) 139 MEQ/L POTASSIUM (test code = 2228) 4.4 MEQ/L CHLORIDE (test code = 2215) 102 MEQ/L CARBON DIOXIDE (test code = 25 MEQ/L 220) CALCIUM (test code = 2209) 9.5 MG/DL PROTEIN, TOTAL (test code = 7.2 G/DL 2229) ALBUMIN (test code = 2201) 4.3 G/DL CALC GLOBULIN (test code = 2.9 G/DL 0) CALC A/G RATIO (test code = 1.5 RATIO 2234) BILIRUBIN, TOTAL (test code = 1.0 MG/DL 2206) ALKALINE PHOSPHATASE (test 72 U/L code = 2204) AST (test code = 2218) 27 U/L ALT (test code = 2219) 15 U/L LIPID PANEL WITH REFLEX DIRECT [id number] 00:00:00 Test Item Value Reference Range Interpretation Comments CHOLESTEROL (test code = 2210) 120 MG/DL TRIGLYCERIDES (test code = 2232) 199 MG/DL HDL CHOLESTEROL (test code = 2220) 39 MG/DL CALC LDL CHOL (test code = 2237) 54 MG/DL RISK RATIO LDL/HDL (test code = 1.38 RATIO 2238) LIPID PANEL WITH REFLEX DIRECT [id number] 00:00:00 Test Item Value Reference Range Interpretation Comments CHOLESTEROL (test code = 2210) 120 MG/DL TRIGLYCERIDES (test code = 2232) 199 MG/DL HDL CHOLESTEROL (test code = 2220) 39 MG/DL CALC LDL CHOL (test code = 2237) 54 MG/DL RISK RATIO LDL/HDL (test code = 1.38 RATIO 2238) [id number] 00:00:00 Test Item Value Reference Range Interpretation Comments TSH, THIRD GENERATION (test code 0.885 UIU/ML = 2821) [id number] 00:00:00 Test Item Value Reference Range Interpretation Comments TSH, THIRD GENERATION (test code 0.885 UIU/ML = 2821) [id number] 00:00:00 Test Item Value Reference Range Interpretation Comments TSH, THIRD GENERATION (test code 0.885 UIU/ML = 2821) CBC W/AUTO [id number] 00:00:00 Test Item Value Reference Range Interpretation Comments WBC (test code = 1001) 5.2 K/UL RBC (test code = 1002) 4.47 M/UL HEMOGLOBIN (test code = 1003) 13.2 G/DL HEMATOCRIT (test code = 1004) 39.6 % MCV (test code = 1005) 88.6 fL MCH (test code = 1006) 29.5 PG MCHC (test code = 1007) 33.3 G/DL RDW (test code = 1038) 14.5 % NEUTROPHILS (test code = 1008) 57.4 % LYMPHOCYTES (test code = 1010) 28.1 % MONOCYTES (test code = 1011) 8.3 % EOSINOPHILS (test code = 1012) 5.2 % BASOPHILS (test code = 1013) 1.0 % PLATELET COUNT (test code = 1015) 112 K/UL CBC W/AUTO [id number] 00:00:00 Test Item Value Reference Range Interpretation Comments WBC (test code = 1001) 5.2 K/UL RBC (test code = 1002) 4.47 M/UL HEMOGLOBIN (test code = 1003) 13.2 G/DL HEMATOCRIT (test code = 1004) 39.6 % MCV (test code = 1005) 88.6 fL MCH (test code = 1006) 29.5 PG MCHC (test code = 1007) 33.3 G/DL RDW (test code = 1038) 14.5 % NEUTROPHILS (test code = 1008) 57.4 % LYMPHOCYTES (test code = 1010) 28.1 % MONOCYTES (test code = 1011) 8.3 % EOSINOPHILS (test code = 1012) 5.2 % BASOPHILS (test code = 1013) 1.0 % PLATELET COUNT (test code = 1015) 112 K/UL CBC W/AUTO [id number] 00:00:00 Test Item Value Reference Range Interpretation Comments WBC (test code = 1001) 5.2 K/UL RBC (test code = 1002) 4.47 M/UL HEMOGLOBIN (test code = 1003) 13.2 G/DL HEMATOCRIT (test code = 1004) 39.6 % MCV (test code = 1005) 88.6 fL MCH (test code = 1006) 29.5 PG MCHC (test code = 1007) 33.3 G/DL RDW (test code = 1038) 14.5 % NEUTROPHILS (test code = 1008) 57.4 % LYMPHOCYTES (test code = 1010) 28.1 % MONOCYTES (test code = 1011) 8.3 % EOSINOPHILS (test code = 1012) 5.2 % BASOPHILS (test code = 1013) 1.0 % PLATELET COUNT (test code = 1015) 112 K/UL COMPREHENSIVE METABOLIC [id number] 00:00:00 Test Item Value Reference Range Interpretation Comments GLUCOSE (test code = 2217) 93 MG/DL BUN (test code = 2208) 22 MG/DL CREATININE (test code = 2214) 1.40 MG/DL eGFR AMER. (test code 55 ML/MIN/1.73 = 90816) eGFR NON- AMER. (test 47 ML/MIN/1.73 code = 74096) CALC BUN/CREAT (test code = 16 RATIO 2235) SODIUM (test code = 2231) 139 MEQ/L POTASSIUM (test code = 2228) 4.4 MEQ/L CHLORIDE (test code = 2215) 102 MEQ/L CARBON DIOXIDE (test code = 25 MEQ/L 220) CALCIUM (test code = 2209) 9.5 MG/DL PROTEIN, TOTAL (test code = 7.2 G/DL 2228) ALBUMIN (test code = 2201) 4.3 G/DL CALC GLOBULIN (test code = 2.9 G/DL 224) CALC A/G RATIO (test code = 1.5 RATIO 2234) BILIRUBIN, TOTAL (test code = 1.0 MG/DL 2206) ALKALINE PHOSPHATASE (test 72 U/L code = 2204) AST (test code = 2218) 27 U/L ALT (test code = 2219) 15 U/L COMPREHENSIVE METABOLIC [id number] 00:00:00 Test Item Value Reference Range Interpretation Comments GLUCOSE (test code = 2217) 93 MG/DL BUN (test code = 2208) 22 MG/DL CREATININE (test code = 2214) 1.40 MG/DL eGFR AMER. (test code 55 ML/MIN/1.73 = 69882) eGFR NON- AMER. (test 47 ML/MIN/1.73 code = 58491) CALC BUN/CREAT (test code = 16 RATIO 2235) SODIUM (test code = 2231) 139 MEQ/L POTASSIUM (test code = 2228) 4.4 MEQ/L CHLORIDE (test code = 2215) 102 MEQ/L CARBON DIOXIDE (test code = 25 MEQ/L 2206) CALCIUM (test code = 2209) 9.5 MG/DL PROTEIN, TOTAL (test code = 7.2 G/DL 2228) ALBUMIN (test code = 2201) 4.3 G/DL CALC GLOBULIN (test code = 2.9 G/DL 2240) CALC A/G RATIO (test code = 1.5 RATIO 2234) BILIRUBIN, TOTAL (test code = 1.0 MG/DL 220) ALKALINE PHOSPHATASE (test 72 U/L code = 2204) AST (test code = 2218) 27 U/L ALT (test code = 2219) 15 U/L LIPID PANEL WITH REFLEX DIRECT [id number] 00:00:00 Test Item Value Reference Range Interpretation Comments CHOLESTEROL (test code = 2210) 120 MG/DL TRIGLYCERIDES (test code = 2232) 199 MG/DL HDL CHOLESTEROL (test code = 2220) 39 MG/DL CALC LDL CHOL (test code = 2237) 54 MG/DL RISK RATIO LDL/HDL (test code = 1.38 RATIO 2238) LIPID PANEL WITH REFLEX DIRECT [id number] 00:00:00 Test Item Value Reference Range Interpretation Comments CHOLESTEROL (test code = 2210) 120 MG/DL TRIGLYCERIDES (test code = 2232) 199 MG/DL HDL CHOLESTEROL (test code = 2220) 39 MG/DL CALC LDL CHOL (test code = 2237) 54 MG/DL RISK RATIO LDL/HDL (test code = 1.38 RATIO 2238) [id number] 00:00:00 Test Item Value Reference Range Interpretation Comments TSH, THIRD GENERATION (test code 0.885 UIU/ML = 2821) [id number] 00:00:00 Test Item Value Reference Range Interpretation Comments TSH, THIRD GENERATION (test code 0.885 UIU/ML = 2821) [id number] 00:00:00 Test Item Value Reference Range Interpretation Comments TSH, THIRD GENERATION (test code 0.885 UIU/ML = 2821) CBC W/AUTO [id number] 00:00:00 Test Item Value Reference Range Interpretation Comments WBC (test code = 1001) 4.7 K/UL RBC (test code = 1002) 4.96 M/UL HEMOGLOBIN (test code = 1003) 14.3 G/DL HEMATOCRIT (test code = 1004) 43.3 % MCV (test code = 1005) 87.3 fL MCH (test code = 1006) 28.8 PG MCHC (test code = 1007) 33.0 G/DL RDW (test code = 1038) 14.6 % NEUTROPHILS (test code = 1008) 57.4 % LYMPHOCYTES (test code = 1010) 26.2 % MONOCYTES (test code = 1011) 9.7 % EOSINOPHILS (test code = 1012) 5.6 % BASOPHILS (test code = 1013) 1.1 % PLATELET COUNT (test code = 1015) 121 K/UL CBC W/AUTO [id number] 00:00:00 Test Item Value Reference Range Interpretation Comments WBC (test code = 1001) 4.7 K/UL RBC (test code = 1002) 4.96 M/UL HEMOGLOBIN (test code = 1003) 14.3 G/DL HEMATOCRIT (test code = 1004) 43.3 % MCV (test code = 1005) 87.3 fL MCH (test code = 1006) 28.8 PG MCHC (test code = 1007) 33.0 G/DL RDW (test code = 1038) 14.6 % NEUTROPHILS (test code = 1008) 57.4 % LYMPHOCYTES (test code = 1010) 26.2 % MONOCYTES (test code = 1011) 9.7 % EOSINOPHILS (test code = 1012) 5.6 % BASOPHILS (test code = 1013) 1.1 % PLATELET COUNT (test code = 1015) 121 K/UL CBC W/AUTO [id number] 00:00:00 Test Item Value Reference Range Interpretation Comments WBC (test code = 1001) 4.7 K/UL RBC (test code = 1002) 4.96 M/UL HEMOGLOBIN (test code = 1003) 14.3 G/DL HEMATOCRIT (test code = 1004) 43.3 % MCV (test code = 1005) 87.3 fL MCH (test code = 1006) 28.8 PG MCHC (test code = 1007) 33.0 G/DL RDW (test code = 1038) 14.6 % NEUTROPHILS (test code = 1008) 57.4 % LYMPHOCYTES (test code = 1010) 26.2 % MONOCYTES (test code = 1011) 9.7 % EOSINOPHILS (test code = 1012) 5.6 % BASOPHILS (test code = 1013) 1.1 % PLATELET COUNT (test code = 1015) 121 K/UL COMPREHENSIVE METABOLIC [id number] 00:00:00 Test Item Value Reference Range Interpretation Comments GLUCOSE (test code = 2217) 106 MG/DL BUN (test code = 2208) 22 MG/DL CREATININE (test code = 2214) 1.43 MG/DL eGFR AMER. (test code 54 ML/MIN/1.73 = 36413) eGFR NON- AMER. (test 46 ML/MIN/1.73 code = 52469) CALC BUN/CREAT (test code = 15 RATIO 2235) SODIUM (test code = 2231) 143 MEQ/L POTASSIUM (test code = 2228) 4.1 MEQ/L CHLORIDE (test code = 2215) 106 MEQ/L CARBON DIOXIDE (test code = 26 MEQ/L 220) CALCIUM (test code = 2209) 8.9 MG/DL PROTEIN, TOTAL (test code = 7.5 G/DL 2228) ALBUMIN (test code = 2201) 4.4 G/DL CALC GLOBULIN (test code = 3.1 G/DL 2240) CALC A/G RATIO (test code = 1.4 RATIO 2234) BILIRUBIN, TOTAL (test code = 1.4 MG/DL 2206) ALKALINE PHOSPHATASE (test 77 U/L code = 2204) AST (test code = 2218) 25 U/L ALT (test code = 2219) 18 U/L COMPREHENSIVE METABOLIC [id number] 00:00:00 Test Item Value Reference Range Interpretation Comments GLUCOSE (test code = 2217) 106 MG/DL BUN (test code = 2208) 22 MG/DL CREATININE (test code = 2214) 1.43 MG/DL eGFR AMER. (test code 54 ML/MIN/1.73 = 05938) eGFR NON- AMER. (test 46 ML/MIN/1.73 code = 26828) CALC BUN/CREAT (test code = 15 RATIO 2235) SODIUM (test code = 2231) 143 MEQ/L POTASSIUM (test code = 2228) 4.1 MEQ/L CHLORIDE (test code = 2215) 106 MEQ/L CARBON DIOXIDE (test code = 26 MEQ/L 2206) CALCIUM (test code = 2209) 8.9 MG/DL PROTEIN, TOTAL (test code = 7.5 G/DL 2228) ALBUMIN (test code = 2201) 4.4 G/DL CALC GLOBULIN (test code = 3.1 G/DL 2240) CALC A/G RATIO (test code = 1.4 RATIO 2234) BILIRUBIN, TOTAL (test code = 1.4 MG/DL 2207) ALKALINE PHOSPHATASE (test 77 U/L code = 2204) AST (test code = 2218) 25 U/L ALT (test code = 2219) 18 U/L LIPID [id number] 00:00:00 Test Item Value Reference Range Interpretation Comments CHOLESTEROL (test code = 2210) 137 MG/DL TRIGLYCERIDES (test code = 2232) 184 MG/DL HDL CHOLESTEROL (test code = 2220) 37 MG/DL CALC LDL CHOL (test code = 2237) 72 MG/DL RISK RATIO LDL/HDL (test code = 1.95 RATIO 2238) LIPID [id number] 00:00:00 Test Item Value Reference Range Interpretation Comments CHOLESTEROL (test code = 2210) 137 MG/DL TRIGLYCERIDES (test code = 2232) 184 MG/DL HDL CHOLESTEROL (test code = 2220) 37 MG/DL CALC LDL CHOL (test code = 2237) 72 MG/DL RISK RATIO LDL/HDL (test code = 1.95 RATIO 2238) HEMOGLOBIN [id number] 00:00:00 Test Item Value Reference Range Interpretation Comments HEMOGLOBIN A1c (test code = 04498) 5.9 % HEMOGLOBIN [id number] 00:00:00 Test Item Value Reference Range Interpretation Comments HEMOGLOBIN A1c (test code = 71105) 5.9 % HEMOGLOBIN [id number] 00:00:00 Test Item Value Reference Range Interpretation Comments HEMOGLOBIN A1c (test code = 43612) 5.9 % [id number] 00:00:00 Test Item Value Reference Range Interpretation Comments TSH, THIRD GENERATION (test code 1.280 UIU/ML = 2821) [id number] 00:00:00 Test Item Value Reference Range Interpretation Comments TSH, THIRD GENERATION (test code 1.280 UIU/ML = 2821) [id number] 00:00:00 Test Item Value Reference Range Interpretation Comments TSH, THIRD GENERATION (test code 1.280 UIU/ML = 2821) CBC W/AUTO [id number] 00:00:00 Test Item Value Reference Range Interpretation Comments WBC (test code = 1001) 4.7 K/UL RBC (test code = 1002) 4.96 M/UL HEMOGLOBIN (test code = 1003) 14.3 G/DL HEMATOCRIT (test code = 1004) 43.3 % MCV (test code = 1005) 87.3 fL MCH (test code = 1006) 28.8 PG MCHC (test code = 1007) 33.0 G/DL RDW (test code = 1038) 14.6 % NEUTROPHILS (test code = 1008) 57.4 % LYMPHOCYTES (test code = 1010) 26.2 % MONOCYTES (test code = 1011) 9.7 % EOSINOPHILS (test code = 1012) 5.6 % BASOPHILS (test code = 1013) 1.1 % PLATELET COUNT (test code = 1015) 121 K/UL CBC W/AUTO [id number] 00:00:00 Test Item Value Reference Range Interpretation Comments WBC (test code = 1001) 4.7 K/UL RBC (test code = 1002) 4.96 M/UL HEMOGLOBIN (test code = 1003) 14.3 G/DL HEMATOCRIT (test code = 1004) 43.3 % MCV (test code = 1005) 87.3 fL MCH (test code = 1006) 28.8 PG MCHC (test code = 1007) 33.0 G/DL RDW (test code = 1038) 14.6 % NEUTROPHILS (test code = 1008) 57.4 % LYMPHOCYTES (test code = 1010) 26.2 % MONOCYTES (test code = 1011) 9.7 % EOSINOPHILS (test code = 1012) 5.6 % BASOPHILS (test code = 1013) 1.1 % PLATELET COUNT (test code = 1015) 121 K/UL CBC W/AUTO [id number] 00:00:00 Test Item Value Reference Range Interpretation Comments WBC (test code = 1001) 4.7 K/UL RBC (test code = 1002) 4.96 M/UL HEMOGLOBIN (test code = 1003) 14.3 G/DL HEMATOCRIT (test code = 1004) 43.3 % MCV (test code = 1005) 87.3 fL MCH (test code = 1006) 28.8 PG MCHC (test code = 1007) 33.0 G/DL RDW (test code = 1038) 14.6 % NEUTROPHILS (test code = 1008) 57.4 % LYMPHOCYTES (test code = 1010) 26.2 % MONOCYTES (test code = 1011) 9.7 % EOSINOPHILS (test code = 1012) 5.6 % BASOPHILS (test code = 1013) 1.1 % PLATELET COUNT (test code = 1015) 121 K/UL COMPREHENSIVE METABOLIC [id number] 00:00:00 Test Item Value Reference Range Interpretation Comments GLUCOSE (test code = 2217) 106 MG/DL BUN (test code = 2208) 22 MG/DL CREATININE (test code = 2214) 1.43 MG/DL eGFR AMER. (test code 54 ML/MIN/1.73 = 16710) eGFR NON- AMER. (test 46 ML/MIN/1.73 code = 12554) CALC BUN/CREAT (test code = 15 RATIO 2235) SODIUM (test code = 2231) 143 MEQ/L POTASSIUM (test code = 2228) 4.1 MEQ/L CHLORIDE (test code = 2215) 106 MEQ/L CARBON DIOXIDE (test code = 26 MEQ/L 220) CALCIUM (test code = 2209) 8.9 MG/DL PROTEIN, TOTAL (test code = 7.5 G/DL 2228) ALBUMIN (test code = 2201) 4.4 G/DL CALC GLOBULIN (test code = 3.1 G/DL 2240) CALC A/G RATIO (test code = 1.4 RATIO 2234) BILIRUBIN, TOTAL (test code = 1.4 MG/DL 2206) ALKALINE PHOSPHATASE (test 77 U/L code = 2204) AST (test code = 2218) 25 U/L ALT (test code = 2219) 18 U/L COMPREHENSIVE METABOLIC [id number] 00:00:00 Test Item Value Reference Range Interpretation Comments GLUCOSE (test code = 2217) 106 MG/DL BUN (test code = 2208) 22 MG/DL CREATININE (test code = 2214) 1.43 MG/DL eGFR AMER. (test code 54 ML/MIN/1.73 = 40407) eGFR NON- AMER. (test 46 ML/MIN/1.73 code = 64060) CALC BUN/CREAT (test code = 15 RATIO 2235) SODIUM (test code = 2231) 143 MEQ/L POTASSIUM (test code = 2228) 4.1 MEQ/L CHLORIDE (test code = 2215) 106 MEQ/L CARBON DIOXIDE (test code = 26 MEQ/L 2205) CALCIUM (test code = 2209) 8.9 MG/DL PROTEIN, TOTAL (test code = 7.5 G/DL 2228) ALBUMIN (test code = 2201) 4.4 G/DL CALC GLOBULIN (test code = 3.1 G/DL 0) CALC A/G RATIO (test code = 1.4 RATIO 2234) BILIRUBIN, TOTAL (test code = 1.4 MG/DL 2206) ALKALINE PHOSPHATASE (test 77 U/L code = 2204) AST (test code = 2218) 25 U/L ALT (test code = 2219) 18 U/L LIPID [id number] 00:00:00 Test Item Value Reference Range Interpretation Comments CHOLESTEROL (test code = 2210) 137 MG/DL TRIGLYCERIDES (test code = 2232) 184 MG/DL HDL CHOLESTEROL (test code = 2220) 37 MG/DL CALC LDL CHOL (test code = 2237) 72 MG/DL RISK RATIO LDL/HDL (test code = 1.95 RATIO 2238) LIPID [id number] 00:00:00 Test Item Value Reference Range Interpretation Comments CHOLESTEROL (test code = 2210) 137 MG/DL TRIGLYCERIDES (test code = 2232) 184 MG/DL HDL CHOLESTEROL (test code = 2220) 37 MG/DL CALC LDL CHOL (test code = 2237) 72 MG/DL RISK RATIO LDL/HDL (test code = 1.95 RATIO 2238) HEMOGLOBIN [id number] 00:00:00 Test Item Value Reference Range Interpretation Comments HEMOGLOBIN A1c (test code = 54930) 5.9 % HEMOGLOBIN [id number] 00:00:00 Test Item Value Reference Range Interpretation Comments HEMOGLOBIN A1c (test code = 54206) 5.9 % HEMOGLOBIN [id number] 00:00:00 Test Item Value Reference Range Interpretation Comments HEMOGLOBIN A1c (test code = 35014) 5.9 % [id number] 00:00:00 Test Item Value Reference Range Interpretation Comments TSH, THIRD GENERATION (test code 1.280 UIU/ML = 2821) [id number] 00:00:00 Test Item Value Reference Range Interpretation Comments TSH, THIRD GENERATION (test code 1.280 UIU/ML = 2821) [id number] 00:00:00 Test Item Value Reference Range Interpretation Comments TSH, THIRD GENERATION (test code 1.280 UIU/ML = 2821) LIPID [id number] 00:00:00 Test Item Value Reference Range Interpretation Comments CHOLESTEROL (test code = 2210) 151 MG/DL TRIGLYCERIDES (test code = 2232) 236 MG/DL HDL CHOLESTEROL (test code = 2220) 37 MG/DL CALC LDL CHOL (test code = 2237) 67 MG/DL RISK RATIO LDL/HDL (test code = 1.81 RATIO 2238) LIPID [id number] 00:00:00 Test Item Value Reference Range Interpretation Comments CHOLESTEROL (test code = 2210) 151 MG/DL TRIGLYCERIDES (test code = 2232) 236 MG/DL HDL CHOLESTEROL (test code = 2220) 37 MG/DL CALC LDL CHOL (test code = 2237) 67 MG/DL RISK RATIO LDL/HDL (test code = 1.81 RATIO 2238) HEMOGLOBIN [id number] 00:00:00 Test Item Value Reference Range Interpretation Comments HEMOGLOBIN A1c (test code = 38599) 5.8 % HEMOGLOBIN [id number] 00:00:00 Test Item Value Reference Range Interpretation Comments HEMOGLOBIN A1c (test code = 04985) 5.8 % HEMOGLOBIN [id number] 00:00:00 Test Item Value Reference Range Interpretation Comments HEMOGLOBIN A1c (test code = 54298) 5.8 % [id number] 00:00:00 Test Item Value Reference Range Interpretation Comments TSH, THIRD GENERATION (test code 1.680 UIU/ML = 2821) [id number] 00:00:00 Test Item Value Reference Range Interpretation Comments TSH, THIRD GENERATION (test code 1.680 UIU/ML = 2821) [id number] 00:00:00 Test Item Value Reference Range Interpretation Comments TSH, THIRD GENERATION (test code 1.680 UIU/ML = 2821) VITAMIN D, 25 [id number] 00:00:00 Test Item Value Reference Range Interpretation Comments VITAMIN D, 25 OH (test code = 4958) 28 NG/ML VITAMIN D, 25 [id number] 00:00:00 Test Item Value Reference Range Interpretation Comments VITAMIN D, 25 OH (test code = 4958) 28 NG/ML LIPID [id number] 00:00:00 Test Item Value Reference Range Interpretation Comments CHOLESTEROL (test code = 2210) 151 MG/DL TRIGLYCERIDES (test code = 2232) 236 MG/DL HDL CHOLESTEROL (test code = 2220) 37 MG/DL CALC LDL CHOL (test code = 2237) 67 MG/DL RISK RATIO LDL/HDL (test code = 1.81 RATIO 2238) LIPID [id number] 00:00:00 Test Item Value Reference Range Interpretation Comments CHOLESTEROL (test code = 2210) 151 MG/DL TRIGLYCERIDES (test code = 2232) 236 MG/DL HDL CHOLESTEROL (test code = 2220) 37 MG/DL CALC LDL CHOL (test code = 2237) 67 MG/DL RISK RATIO LDL/HDL (test code = 1.81 RATIO 2238) HEMOGLOBIN [id number] 00:00:00 Test Item Value Reference Range Interpretation Comments HEMOGLOBIN A1c (test code = 97084) 5.8 % HEMOGLOBIN [id number] 00:00:00 Test Item Value Reference Range Interpretation Comments HEMOGLOBIN A1c (test code = 22892) 5.8 % HEMOGLOBIN [id number] 00:00:00 Test Item Value Reference Range Interpretation Comments HEMOGLOBIN A1c (test code = 71222) 5.8 % [id number] 00:00:00 Test Item Value Reference Range Interpretation Comments TSH, THIRD GENERATION (test code 1.680 UIU/ML = 2821) [id number] 00:00:00 Test Item Value Reference Range Interpretation Comments TSH, THIRD GENERATION (test code 1.680 UIU/ML = 2821) [id number] 00:00:00 Test Item Value Reference Range Interpretation Comments TSH, THIRD GENERATION (test code 1.680 UIU/ML = 2821) VITAMIN D, 25 [id number] 00:00:00 Test Item Value Reference Range Interpretation Comments VITAMIN D, 25 OH (test code = 4958) 28 NG/ML VITAMIN D, 25 [id number] 00:00:00 Test Item Value Reference Range Interpretation Comments VITAMIN D, 25 OH (test code = 4958) 28 NG/ML FLEXIBLE SCOPE [id number] 00:00:00[facility] see [facility] [id number] 00:00:00 Test Item Value Reference Range Interpretation Comments WBC (test code = 1001) 5.7 K/UL RBC (test code = 1002) 4.49 M/UL HEMOGLOBIN (test code = 1003) 12.9 G/DL HEMATOCRIT (test code = 1004) 38.7 % MCV (test code = 1005) 86.2 fL MCH (test code = 1006) 28.7 PG MCHC (test code = 1007) 33.3 G/DL RDW (test code = 1038) 14.6 % NEUTROPHILS (test code = 1008) 50.0 % LYMPHOCYTES (test code = 1010) 32.3 % MONOCYTES (test code = 1011) 9.0 % EOSINOPHILS (test code = 1012) 7.8 % BASOPHILS (test code = 1013) 0.9 % PLATELET COUNT (test code = 1015) 162 K/UL COMMENTS (test code = 1016) (NOTE) CBC W/AUTO [id number] 00:00:00 Test Item Value Reference Range Interpretation Comments WBC (test code = 1001) 5.7 K/UL RBC (test code = 1002) 4.49 M/UL HEMOGLOBIN (test code = 1003) 12.9 G/DL HEMATOCRIT (test code = 1004) 38.7 % MCV (test code = 1005) 86.2 fL MCH (test code = 1006) 28.7 PG MCHC (test code = 1007) 33.3 G/DL RDW (test code = 1038) 14.6 % NEUTROPHILS (test code = 1008) 50.0 % LYMPHOCYTES (test code = 1010) 32.3 % MONOCYTES (test code = 1011) 9.0 % EOSINOPHILS (test code = 1012) 7.8 % BASOPHILS (test code = 1013) 0.9 % PLATELET COUNT (test code = 1015) 162 K/UL COMMENTS (test code = 1016) (NOTE) CBC W/AUTO [id number] 00:00:00 Test Item Value Reference Range Interpretation Comments WBC (test code = 1001) 5.7 K/UL RBC (test code = 1002) 4.49 M/UL HEMOGLOBIN (test code = 1003) 12.9 G/DL HEMATOCRIT (test code = 1004) 38.7 % MCV (test code = 1005) 86.2 fL MCH (test code = 1006) 28.7 PG MCHC (test code = 1007) 33.3 G/DL RDW (test code = 1038) 14.6 % NEUTROPHILS (test code = 1008) 50.0 % LYMPHOCYTES (test code = 1010) 32.3 % MONOCYTES (test code = 1011) 9.0 % EOSINOPHILS (test code = 1012) 7.8 % BASOPHILS (test code = 1013) 0.9 % PLATELET COUNT (test code = 1015) 162 K/UL COMMENTS (test code = 1016) (NOTE) COMPREHENSIVE METABOLIC [id number] 00:00:00 Test Item Value Reference Range Interpretation Comments GLUCOSE (test code = 2217) 89 MG/DL BUN (test code = 2208) 19 MG/DL CREATININE (test code = 2214) 1.28 MG/DL eGFR AMER. (test code 62 ML/MIN/1.73 = 90168) eGFR NON- AMER. (test 53 ML/MIN/1.73 code = 41021) CALC BUN/CREAT (test code = 15 RATIO 2235) SODIUM (test code = 2231) 142 MEQ/L POTASSIUM (test code = 2228) 5.0 MEQ/L CHLORIDE (test code = 2215) 104 MEQ/L CARBON DIOXIDE (test code = 26 MEQ/L 2206) CALCIUM (test code = 2209) 9.0 MG/DL PROTEIN, TOTAL (test code = 7.3 G/DL 2229) ALBUMIN (test code = 2201) 4.3 G/DL CALC GLOBULIN (test code = 3.0 G/DL 2240) CALC A/G RATIO (test code = 1.4 RATIO 2234) BILIRUBIN, TOTAL (test code = 1.1 MG/DL 220) ALKALINE PHOSPHATASE (test 100 U/L code = 2204) AST (test code = 2218) 28 U/L ALT (test code = 2219) 18 U/L COMPREHENSIVE METABOLIC [id number] 00:00:00 Test Item Value Reference Range Interpretation Comments GLUCOSE (test code = 2217) 89 MG/DL BUN (test code = 2208) 19 MG/DL CREATININE (test code = 2214) 1.28 MG/DL eGFR AMER. (test code 62 ML/MIN/1.73 = 46639) eGFR NON- AMER. (test 53 ML/MIN/1.73 code = 14304) CALC BUN/CREAT (test code = 15 RATIO 2234) SODIUM (test code = 2231) 142 MEQ/L POTASSIUM (test code = 2228) 5.0 MEQ/L CHLORIDE (test code = 2215) 104 MEQ/L CARBON DIOXIDE (test code = 26 MEQ/L 2205) CALCIUM (test code = 2209) 9.0 MG/DL PROTEIN, TOTAL (test code = 7.3 G/DL 2228) ALBUMIN (test code = 220) 4.3 G/DL CALC GLOBULIN (test code = 3.0 G/DL 2239) CALC A/G RATIO (test code = 1.4 RATIO 2233) BILIRUBIN, TOTAL (test code = 1.1 MG/DL 2206) ALKALINE PHOSPHATASE (test 100 U/L code = 2203) AST (test code = 221) 28 U/L ALT (test code = 221) 18 U/L VITAMIN D, 25 [id number] 00:00:00 Test Item Value Reference Range Interpretation Comments VITAMIN D, 25 OH (test code = 4958) 15 NG/ML VITAMIN D, 25 [id number] 00:00:00 Test Item Value Reference Range Interpretation Comments VITAMIN D, 25 OH (test code = 4958) 15 NG/ML CBC W/AUTO [id number] 00:00:00 Test Item Value Reference Range Interpretation Comments WBC (test code = 1001) 5.7 K/UL RBC (test code = 1002) 4.49 M/UL HEMOGLOBIN (test code = 1003) 12.9 G/DL HEMATOCRIT (test code = 1004) 38.7 % MCV (test code = 1005) 86.2 fL MCH (test code = 1006) 28.7 PG MCHC (test code = 1007) 33.3 G/DL RDW (test code = 1038) 14.6 % NEUTROPHILS (test code = 1008) 50.0 % LYMPHOCYTES (test code = 1010) 32.3 % MONOCYTES (test code = 1011) 9.0 % EOSINOPHILS (test code = 1012) 7.8 % BASOPHILS (test code = 1013) 0.9 % PLATELET COUNT (test code = 1015) 162 K/UL COMMENTS (test code = 1016) (NOTE) CBC W/AUTO [id number] 00:00:00 Test Item Value Reference Range Interpretation Comments WBC (test code = 1001) 5.7 K/UL RBC (test code = 1002) 4.49 M/UL HEMOGLOBIN (test code = 1003) 12.9 G/DL HEMATOCRIT (test code = 1004) 38.7 % MCV (test code = 1005) 86.2 fL MCH (test code = 1006) 28.7 PG MCHC (test code = 1007) 33.3 G/DL RDW (test code = 1038) 14.6 % NEUTROPHILS (test code = 1008) 50.0 % LYMPHOCYTES (test code = 1010) 32.3 % MONOCYTES (test code = 1011) 9.0 % EOSINOPHILS (test code = 1012) 7.8 % BASOPHILS (test code = 1013) 0.9 % PLATELET COUNT (test code = 1015) 162 K/UL COMMENTS (test code = 1016) (NOTE) CBC W/AUTO [id number] 00:00:00 Test Item Value Reference Range Interpretation Comments WBC (test code = 1001) 5.7 K/UL RBC (test code = 1002) 4.49 M/UL HEMOGLOBIN (test code = 1003) 12.9 G/DL HEMATOCRIT (test code = 1004) 38.7 % MCV (test code = 1005) 86.2 fL MCH (test code = 1006) 28.7 PG MCHC (test code = 1007) 33.3 G/DL RDW (test code = 1038) 14.6 % NEUTROPHILS (test code = 1008) 50.0 % LYMPHOCYTES (test code = 1010) 32.3 % MONOCYTES (test code = 1011) 9.0 % EOSINOPHILS (test code = 1012) 7.8 % BASOPHILS (test code = 1013) 0.9 % PLATELET COUNT (test code = 1015) 162 K/UL COMMENTS (test code = 1016) (NOTE) COMPREHENSIVE METABOLIC [id number] 00:00:00 Test Item Value Reference Range Interpretation Comments GLUCOSE (test code = 2217) 89 MG/DL BUN (test code = 2208) 19 MG/DL CREATININE (test code = 2214) 1.28 MG/DL eGFR AMER. (test code 62 ML/MIN/1.73 = 16014) eGFR NON- AMER. (test 53 ML/MIN/1.73 code = 25925) CALC BUN/CREAT (test code = 15 RATIO 2235) SODIUM (test code = 2231) 142 MEQ/L POTASSIUM (test code = 2228) 5.0 MEQ/L CHLORIDE (test code = 2215) 104 MEQ/L CARBON DIOXIDE (test code = 26 MEQ/L 220) CALCIUM (test code = 2209) 9.0 MG/DL PROTEIN, TOTAL (test code = 7.3 G/DL 222) ALBUMIN (test code = 2201) 4.3 G/DL CALC GLOBULIN (test code = 3.0 G/DL 2240) CALC A/G RATIO (test code = 1.4 RATIO 2234) BILIRUBIN, TOTAL (test code = 1.1 MG/DL 2206) ALKALINE PHOSPHATASE (test 100 U/L code = 2204) AST (test code = 2218) 28 U/L ALT (test code = 2219) 18 U/L COMPREHENSIVE METABOLIC [id number] 00:00:00 Test Item Value Reference Range Interpretation Comments GLUCOSE (test code = 2217) 89 MG/DL BUN (test code = 2208) 19 MG/DL CREATININE (test code = 2214) 1.28 MG/DL eGFR AMER. (test code 62 ML/MIN/1.73 = 05607) eGFR NON- AMER. (test 53 ML/MIN/1.73 code = 70538) CALC BUN/CREAT (test code = 15 RATIO 2235) SODIUM (test code = 2231) 142 MEQ/L POTASSIUM (test code = 2228) 5.0 MEQ/L CHLORIDE (test code = 2215) 104 MEQ/L CARBON DIOXIDE (test code = 26 MEQ/L 2205) CALCIUM (test code = 2209) 9.0 MG/DL PROTEIN, TOTAL (test code = 7.3 G/DL 2228) ALBUMIN (test code = 2201) 4.3 G/DL CALC GLOBULIN (test code = 3.0 G/DL 2240) CALC A/G RATIO (test code = 1.4 RATIO 2234) BILIRUBIN, TOTAL (test code = 1.1 MG/DL 2206) ALKALINE PHOSPHATASE (test 100 U/L code = 2204) AST (test code = 2218) 28 U/L ALT (test code = 2219) 18 U/L VITAMIN D, 25 [id number] 00:00:00 Test Item Value Reference Range Interpretation Comments VITAMIN D, 25 OH (test code = 4958) 15 NG/ML VITAMIN D, 25 [id number] 00:00:00 Test Item Value Reference Range Interpretation Comments VITAMIN D, 25 OH (test code = 4958) 15 NG/ML [id number] 00:00:00 Test Item Value Reference Range Interpretation Comments POTASSIUM (test code = 2228) 4.2 MEQ/L [id number] 00:00:00 Test Item Value Reference Range Interpretation Comments POTASSIUM (test code = 2228) 4.2 MEQ/L [id number] 00:00:00 Test Item Value Reference Range Interpretation Comments POTASSIUM (test code = 2228) 4.2 MEQ/L [id number] 00:00:00 Test Item Value Reference Range Interpretation Comments POTASSIUM (test code = 2228) 4.2 MEQ/L HEMOGLOBIN [id number] 00:00:00 Test Item Value Reference Range Interpretation Comments HEMOGLOBIN A1c (test code = 81554) 5.9 % HEMOGLOBIN [id number] 00:00:00 Test Item Value Reference Range Interpretation Comments HEMOGLOBIN A1c (test code = 24025) 5.9 % HEMOGLOBIN [id number] 00:00:00 Test Item Value Reference Range Interpretation Comments HEMOGLOBIN A1c (test code = 28472) 5.9 % CBC W/AUTO [id number] 00:00:00 Test Item Value Reference Range Interpretation Comments WBC (test code = 1001) 5.8 K/UL RBC (test code = 1002) 5.19 M/UL HEMOGLOBIN (test code = 1003) 14.7 G/DL HEMATOCRIT (test code = 1004) 44.4 % MCV (test code = 1005) 85.5 fL MCH (test code = 1006) 28.3 PG MCHC (test code = 1007) 33.1 G/DL RDW (test code = 1038) 13.6 % NEUTROPHILS (test code = 1008) 59.9 % LYMPHOCYTES (test code = 1010) 27.8 % MONOCYTES (test code = 1011) 5.7 % EOSINOPHILS (test code = 1012) 5.6 % BASOPHILS (test code = 1013) 1.0 % PLATELET COUNT (test code = 1015) 197 K/UL CBC W/AUTO [id number] 00:00:00 Test Item Value Reference Range Interpretation Comments WBC (test code = 1001) 5.8 K/UL RBC (test code = 1002) 5.19 M/UL HEMOGLOBIN (test code = 1003) 14.7 G/DL HEMATOCRIT (test code = 1004) 44.4 % MCV (test code = 1005) 85.5 fL MCH (test code = 1006) 28.3 PG MCHC (test code = 1007) 33.1 G/DL RDW (test code = 1038) 13.6 % NEUTROPHILS (test code = 1008) 59.9 % LYMPHOCYTES (test code = 1010) 27.8 % MONOCYTES (test code = 1011) 5.7 % EOSINOPHILS (test code = 1012) 5.6 % BASOPHILS (test code = 1013) 1.0 % PLATELET COUNT (test code = 1015) 197 K/UL CBC W/AUTO [id number] 00:00:00 Test Item Value Reference Range Interpretation Comments WBC (test code = 1001) 5.8 K/UL RBC (test code = 1002) 5.19 M/UL HEMOGLOBIN (test code = 1003) 14.7 G/DL HEMATOCRIT (test code = 1004) 44.4 % MCV (test code = 1005) 85.5 fL MCH (test code = 1006) 28.3 PG MCHC (test code = 1007) 33.1 G/DL RDW (test code = 1038) 13.6 % NEUTROPHILS (test code = 1008) 59.9 % LYMPHOCYTES (test code = 1010) 27.8 % MONOCYTES (test code = 1011) 5.7 % EOSINOPHILS (test code = 1012) 5.6 % BASOPHILS (test code = 1013) 1.0 % PLATELET COUNT (test code = 1015) 197 K/UL COMPREHENSIVE METABOLIC [id number] 00:00:00 Test Item Value Reference Range Interpretation Comments GLUCOSE (test code = 2217) 101 MG/DL BUN (test code = 2208) 21 MG/DL CREATININE (test code = 2214) 1.40 MG/DL eGFR AMER. (test code 55 ML/MIN/1.73 = 75959) eGFR NON- AMER. (test 48 ML/MIN/1.73 code = 95927) CALC BUN/CREAT (test code = 15 RATIO 2235) SODIUM (test code = 2231) 146 MEQ/L POTASSIUM (test code = 2228) 5.5 MEQ/L CHLORIDE (test code = 2215) 104 MEQ/L CARBON DIOXIDE (test code = 27 MEQ/L 220) CALCIUM (test code = 2209) 9.8 MG/DL PROTEIN, TOTAL (test code = 8.1 G/DL 222) ALBUMIN (test code = 2201) 4.6 G/DL CALC GLOBULIN (test code = 3.5 G/DL 2240) CALC A/G RATIO (test code = 1.3 RATIO 2234) BILIRUBIN, TOTAL (test code = 1.1 MG/DL 2206) ALKALINE PHOSPHATASE (test 147 U/L code = 2204) AST (test code = 2218) 29 U/L ALT (test code = 2219) 25 U/L COMPREHENSIVE METABOLIC [id number] 00:00:00 Test Item Value Reference Range Interpretation Comments GLUCOSE (test code = 2217) 101 MG/DL BUN (test code = 2208) 21 MG/DL CREATININE (test code = 2214) 1.40 MG/DL eGFR AMER. (test code 55 ML/MIN/1.73 = 92027) eGFR NON- AMER. (test 48 ML/MIN/1.73 code = 92870) CALC BUN/CREAT (test code = 15 RATIO 2235) SODIUM (test code = 2231) 146 MEQ/L POTASSIUM (test code = 2228) 5.5 MEQ/L CHLORIDE (test code = 2215) 104 MEQ/L CARBON DIOXIDE (test code = 27 MEQ/L 2205) CALCIUM (test code = 2209) 9.8 MG/DL PROTEIN, TOTAL (test code = 8.1 G/DL 2228) ALBUMIN (test code = 2201) 4.6 G/DL CALC GLOBULIN (test code = 3.5 G/DL 2240) CALC A/G RATIO (test code = 1.3 RATIO 2234) BILIRUBIN, TOTAL (test code = 1.1 MG/DL 2206) ALKALINE PHOSPHATASE (test 147 U/L code = 2204) AST (test code = 2218) 29 U/L ALT (test code = 2219) 25 U/L LIPID [id number] 00:00:00 Test Item Value Reference Range Interpretation Comments CHOLESTEROL (test code = 2210) 143 MG/DL TRIGLYCERIDES (test code = 2232) 176 MG/DL HDL CHOLESTEROL (test code = 2220) 33 MG/DL CALC LDL CHOL (test code = 2237) 75 MG/DL RISK RATIO LDL/HDL (test code = 2.27 RATIO 2238) LIPID [id number] 00:00:00 Test Item Value Reference Range Interpretation Comments CHOLESTEROL (test code = 2210) 143 MG/DL TRIGLYCERIDES (test code = 2232) 176 MG/DL HDL CHOLESTEROL (test code = 2220) 33 MG/DL CALC LDL CHOL (test code = 2237) 75 MG/DL RISK RATIO LDL/HDL (test code = 2.27 RATIO 2238) [id number] 00:00:00 Test Item Value Reference Range Interpretation Comments TSH, THIRD GENERATION (test code 1.770 UIU/ML = 2821) [id number] 00:00:00 Test Item Value Reference Range Interpretation Comments TSH, THIRD GENERATION (test code 1.770 UIU/ML = 2821) [id number] 00:00:00 Test Item Value Reference Range Interpretation Comments TSH, THIRD GENERATION (test code 1.770 UIU/ML = 2821) HEMOGLOBIN [id number] 00:00:00 Test Item Value Reference Range Interpretation Comments HEMOGLOBIN A1c (test code = 12990) 5.9 % HEMOGLOBIN [id number] 00:00:00 Test Item Value Reference Range Interpretation Comments HEMOGLOBIN A1c (test code = 92238) 5.9 % HEMOGLOBIN [id number] 00:00:00 Test Item Value Reference Range Interpretation Comments HEMOGLOBIN A1c (test code = 59447) 5.9 % CBC W/AUTO [id number] 00:00:00 Test Item Value Reference Range Interpretation Comments WBC (test code = 1001) 5.8 K/UL RBC (test code = 1002) 5.19 M/UL HEMOGLOBIN (test code = 1003) 14.7 G/DL HEMATOCRIT (test code = 1004) 44.4 % MCV (test code = 1005) 85.5 fL MCH (test code = 1006) 28.3 PG MCHC (test code = 1007) 33.1 G/DL RDW (test code = 1038) 13.6 % NEUTROPHILS (test code = 1008) 59.9 % LYMPHOCYTES (test code = 1010) 27.8 % MONOCYTES (test code = 1011) 5.7 % EOSINOPHILS (test code = 1012) 5.6 % BASOPHILS (test code = 1013) 1.0 % PLATELET COUNT (test code = 1015) 197 K/UL CBC W/AUTO [id number] 00:00:00 Test Item Value Reference Range Interpretation Comments WBC (test code = 1001) 5.8 K/UL RBC (test code = 1002) 5.19 M/UL HEMOGLOBIN (test code = 1003) 14.7 G/DL HEMATOCRIT (test code = 1004) 44.4 % MCV (test code = 1005) 85.5 fL MCH (test code = 1006) 28.3 PG MCHC (test code = 1007) 33.1 G/DL RDW (test code = 1038) 13.6 % NEUTROPHILS (test code = 1008) 59.9 % LYMPHOCYTES (test code = 1010) 27.8 % MONOCYTES (test code = 1011) 5.7 % EOSINOPHILS (test code = 1012) 5.6 % BASOPHILS (test code = 1013) 1.0 % PLATELET COUNT (test code = 1015) 197 K/UL CBC W/AUTO [id number] 00:00:00 Test Item Value Reference Range Interpretation Comments WBC (test code = 1001) 5.8 K/UL RBC (test code = 1002) 5.19 M/UL HEMOGLOBIN (test code = 1003) 14.7 G/DL HEMATOCRIT (test code = 1004) 44.4 % MCV (test code = 1005) 85.5 fL MCH (test code = 1006) 28.3 PG MCHC (test code = 1007) 33.1 G/DL RDW (test code = 1038) 13.6 % NEUTROPHILS (test code = 1008) 59.9 % LYMPHOCYTES (test code = 1010) 27.8 % MONOCYTES (test code = 1011) 5.7 % EOSINOPHILS (test code = 1012) 5.6 % BASOPHILS (test code = 1013) 1.0 % PLATELET COUNT (test code = 1015) 197 K/UL COMPREHENSIVE METABOLIC [id number] 00:00:00 Test Item Value Reference Range Interpretation Comments GLUCOSE (test code = 2217) 101 MG/DL BUN (test code = 2208) 21 MG/DL CREATININE (test code = 2214) 1.40 MG/DL eGFR AMER. (test code 55 ML/MIN/1.73 = 56230) eGFR NON- AMER. (test 48 ML/MIN/1.73 code = 18070) CALC BUN/CREAT (test code = 15 RATIO 2235) SODIUM (test code = 2231) 146 MEQ/L POTASSIUM (test code = 2228) 5.5 MEQ/L CHLORIDE (test code = 2215) 104 MEQ/L CARBON DIOXIDE (test code = 27 MEQ/L 220) CALCIUM (test code = 2209) 9.8 MG/DL PROTEIN, TOTAL (test code = 8.1 G/DL 2228) ALBUMIN (test code = 2201) 4.6 G/DL CALC GLOBULIN (test code = 3.5 G/DL 2240) CALC A/G RATIO (test code = 1.3 RATIO 2234) BILIRUBIN, TOTAL (test code = 1.1 MG/DL 2206) ALKALINE PHOSPHATASE (test 147 U/L code = 2204) AST (test code = 2218) 29 U/L ALT (test code = 2219) 25 U/L COMPREHENSIVE METABOLIC [id number] 00:00:00 Test Item Value Reference Range Interpretation Comments GLUCOSE (test code = 2217) 101 MG/DL BUN (test code = 2208) 21 MG/DL CREATININE (test code = 2214) 1.40 MG/DL eGFR AMER. (test code 55 ML/MIN/1.73 = 95190) eGFR NON- AMER. (test 48 ML/MIN/1.73 code = 71489) CALC BUN/CREAT (test code = 15 RATIO 2235) SODIUM (test code = 2231) 146 MEQ/L POTASSIUM (test code = 2228) 5.5 MEQ/L CHLORIDE (test code = 2215) 104 MEQ/L CARBON DIOXIDE (test code = 27 MEQ/L 220) CALCIUM (test code = 2209) 9.8 MG/DL PROTEIN, TOTAL (test code = 8.1 G/DL 2228) ALBUMIN (test code = 2201) 4.6 G/DL CALC GLOBULIN (test code = 3.5 G/DL 2240) CALC A/G RATIO (test code = 1.3 RATIO 2234) BILIRUBIN, TOTAL (test code = 1.1 MG/DL 2206) ALKALINE PHOSPHATASE (test 147 U/L code = 2204) AST (test code = 2218) 29 U/L ALT (test code = 2219) 25 U/L LIPID [id number] 00:00:00 Test Item Value Reference Range Interpretation Comments CHOLESTEROL (test code = 2210) 143 MG/DL TRIGLYCERIDES (test code = 2232) 176 MG/DL HDL CHOLESTEROL (test code = 2220) 33 MG/DL CALC LDL CHOL (test code = 2237) 75 MG/DL RISK RATIO LDL/HDL (test code = 2.27 RATIO 2238) LIPID [id number] 00:00:00 Test Item Value Reference Range Interpretation Comments CHOLESTEROL (test code = 2210) 143 MG/DL TRIGLYCERIDES (test code = 2232) 176 MG/DL HDL CHOLESTEROL (test code = 2220) 33 MG/DL CALC LDL CHOL (test code = 2237) 75 MG/DL RISK RATIO LDL/HDL (test code = 2.27 RATIO 2238) [id number] 00:00:00 Test Item Value Reference Range Interpretation Comments TSH, THIRD GENERATION (test code 1.770 UIU/ML = 2821) [id number] 00:00:00 Test Item Value Reference Range Interpretation Comments TSH, THIRD GENERATION (test code 1.770 UIU/ML = 2821) [id number] 00:00:00 Test Item Value Reference Range Interpretation Comments TSH, THIRD GENERATION (test code 1.770 UIU/ML = 2821) COMPREHENSIVE METABOLIC [id number] 00:00:00 Test Item Value Reference Range Interpretation Comments GLUCOSE (test code = 2217) 72 MG/DL BUN (test code = 2208) 27 MG/DL CREATININE (test code = 2214) 1.47 MG/DL eGFR AMER. (test code 52 ML/MIN/1.73 = 60276) eGFR NON- AMER. (test 45 ML/MIN/1.73 code = 49437) CALC BUN/CREAT (test code = 18 RATIO 2235) SODIUM (test code = 2231) 141 MEQ/L POTASSIUM (test code = 2228) 4.6 MEQ/L CHLORIDE (test code = 2215) 104 MEQ/L CARBON DIOXIDE (test code = 26 MEQ/L 6) CALCIUM (test code = 2209) 9.7 MG/DL PROTEIN, TOTAL (test code = 7.9 G/DL 222) ALBUMIN (test code = 2201) 4.3 G/DL CALC GLOBULIN (test code = 3.6 G/DL 2240) CALC A/G RATIO (test code = 1.2 RATIO 2234) BILIRUBIN, TOTAL (test code = 1.1 MG/DL 2207) ALKALINE PHOSPHATASE (test 85 U/L code = 2204) AST (test code = 2218) 26 U/L ALT (test code = 2219) 17 U/L COMPREHENSIVE METABOLIC [id number] 00:00:00 Test Item Value Reference Range Interpretation Comments GLUCOSE (test code = 2217) 72 MG/DL BUN (test code = 2208) 27 MG/DL CREATININE (test code = 2214) 1.47 MG/DL eGFR AMER. (test code 52 ML/MIN/1.73 = 17204) eGFR NON- AMER. (test 45 ML/MIN/1.73 code = 73634) CALC BUN/CREAT (test code = 18 RATIO 2235) SODIUM (test code = 2231) 141 MEQ/L POTASSIUM (test code = 2228) 4.6 MEQ/L CHLORIDE (test code = 2215) 104 MEQ/L CARBON DIOXIDE (test code = 26 MEQ/L 2205) CALCIUM (test code = 2209) 9.7 MG/DL PROTEIN, TOTAL (test code = 7.9 G/DL 2228) ALBUMIN (test code = 2201) 4.3 G/DL CALC GLOBULIN (test code = 3.6 G/DL 2240) CALC A/G RATIO (test code = 1.2 RATIO 2234) BILIRUBIN, TOTAL (test code = 1.1 MG/DL 2207) ALKALINE PHOSPHATASE (test 85 U/L code = 2204) AST (test code = 2218) 26 U/L ALT (test code = 2219) 17 U/L [id number] 00:00:00 Test Item Value Reference Range Interpretation Comments TSH, THIRD GENERATION (test code 0.652 UIU/ML = 2821) [id number] 00:00:00 Test Item Value Reference Range Interpretation Comments TSH, THIRD GENERATION (test code 0.652 UIU/ML = 2821) [id number] 00:00:00 Test Item Value Reference Range Interpretation Comments TSH, THIRD GENERATION (test code 0.652 UIU/ML = 2821) COMPREHENSIVE METABOLIC [id number] 00:00:00 Test Item Value Reference Range Interpretation Comments GLUCOSE (test code = 2217) 72 MG/DL BUN (test code = 2208) 27 MG/DL CREATININE (test code = 2214) 1.47 MG/DL eGFR AMER. (test code 52 ML/MIN/1.73 = 31074) eGFR NON- AMER. (test 45 ML/MIN/1.73 code = 61779) CALC BUN/CREAT (test code = 18 RATIO 2235) SODIUM (test code = 2231) 141 MEQ/L POTASSIUM (test code = 2228) 4.6 MEQ/L CHLORIDE (test code = 2215) 104 MEQ/L CARBON DIOXIDE (test code = 26 MEQ/L 220) CALCIUM (test code = 2209) 9.7 MG/DL PROTEIN, TOTAL (test code = 7.9 G/DL 2228) ALBUMIN (test code = 2201) 4.3 G/DL CALC GLOBULIN (test code = 3.6 G/DL 2240) CALC A/G RATIO (test code = 1.2 RATIO 2233) BILIRUBIN, TOTAL (test code = 1.1 MG/DL 2206) ALKALINE PHOSPHATASE (test 85 U/L code = 2204) AST (test code = 2218) 26 U/L ALT (test code = 2219) 17 U/L COMPREHENSIVE METABOLIC [id number] 00:00:00 Test Item Value Reference Range Interpretation Comments GLUCOSE (test code = 2217) 72 MG/DL BUN (test code = 2208) 27 MG/DL CREATININE (test code = 2214) 1.47 MG/DL eGFR AMER. (test code 52 ML/MIN/1.73 = 22781) eGFR NON- AMER. (test 45 ML/MIN/1.73 code = 21451) CALC BUN/CREAT (test code = 18 RATIO 2235) SODIUM (test code = 2231) 141 MEQ/L POTASSIUM (test code = 2228) 4.6 MEQ/L CHLORIDE (test code = 2215) 104 MEQ/L CARBON DIOXIDE (test code = 26 MEQ/L 2206) CALCIUM (test code = 2209) 9.7 MG/DL PROTEIN, TOTAL (test code = 7.9 G/DL 2228) ALBUMIN (test code = 2201) 4.3 G/DL CALC GLOBULIN (test code = 3.6 G/DL 0) CALC A/G RATIO (test code = 1.2 RATIO 2234) BILIRUBIN, TOTAL (test code = 1.1 MG/DL 2206) ALKALINE PHOSPHATASE (test 85 U/L code = 2204) AST (test code = 2218) 26 U/L ALT (test code = 2219) 17 U/L [id number] 00:00:00 Test Item Value Reference Range Interpretation Comments TSH, THIRD GENERATION (test code 0.652 UIU/ML = 2821) [id number] 00:00:00 Test Item Value Reference Range Interpretation Comments TSH, THIRD GENERATION (test code 0.652 UIU/ML = 2821) [id number] 00:00:00 Test Item Value Reference Range Interpretation Comments TSH, THIRD GENERATION (test code 0.652 UIU/ML = 2821) HEMOGLOBIN [id number] 00:00:00 Test Item Value Reference Range Interpretation Comments HEMOGLOBIN A1c (test code = 06888) 5.8 % HEMOGLOBIN [id number] 00:00:00 Test Item Value Reference Range Interpretation Comments HEMOGLOBIN A1c (test code = 11030) 5.8 % HEMOGLOBIN [id number] 00:00:00 Test Item Value Reference Range Interpretation Comments HEMOGLOBIN A1c (test code = 26975) 5.8 % LIPID [id number] 00:00:00 Test Item Value Reference Range Interpretation Comments CHOLESTEROL (test code = 2210) 155 MG/DL TRIGLYCERIDES (test code = 2232) 194 MG/DL HDL CHOLESTEROL (test code = 2220) 39 MG/DL CALC LDL CHOL (test code = 2237) 77 MG/DL RISK RATIO LDL/HDL (test code = 1.98 RATIO 2238) LIPID [id number] 00:00:00 Test Item Value Reference Range Interpretation Comments CHOLESTEROL (test code = 2210) 155 MG/DL TRIGLYCERIDES (test code = 2232) 194 MG/DL HDL CHOLESTEROL (test code = 2220) 39 MG/DL CALC LDL CHOL (test code = 2237) 77 MG/DL RISK RATIO LDL/HDL (test code = 1.98 RATIO 2238) COMPREHENSIVE METABOLIC [id number] 00:00:00 Test Item Value Reference Range Interpretation Comments GLUCOSE (test code = 2217) 106 MG/DL BUN (test code = 2208) 22 MG/DL CREATININE (test code = 2214) 1.27 MG/DL eGFR AMER. (test code 63 ML/MIN/1.73 = 86478) eGFR NON- AMER. (test 54 ML/MIN/1.73 code = 85207) CALC BUN/CREAT (test code = 17 RATIO 2235) SODIUM (test code = 2231) 143 MEQ/L POTASSIUM (test code = 2228) 5.0 MEQ/L CHLORIDE (test code = 2215) 104 MEQ/L CARBON DIOXIDE (test code = 26 MEQ/L 2205) CALCIUM (test code = 2209) 9.5 MG/DL PROTEIN, TOTAL (test code = 7.7 G/DL 2228) ALBUMIN (test code = 2201) 4.3 G/DL CALC GLOBULIN (test code = 3.4 G/DL 0) CALC A/G RATIO (test code = 1.3 RATIO 2234) BILIRUBIN, TOTAL (test code = 1.1 MG/DL 2206) ALKALINE PHOSPHATASE (test 80 U/L code = 2204) AST (test code = 2218) 26 U/L ALT (test code = 2219) 20 U/L COMPREHENSIVE METABOLIC [id number] 00:00:00 Test Item Value Reference Range Interpretation Comments GLUCOSE (test code = 2217) 106 MG/DL BUN (test code = 2208) 22 MG/DL CREATININE (test code = 2214) 1.27 MG/DL eGFR AMER. (test code 63 ML/MIN/1.73 = 81476) eGFR NON- AMER. (test 54 ML/MIN/1.73 code = 44324) CALC BUN/CREAT (test code = 17 RATIO 2235) SODIUM (test code = 2231) 143 MEQ/L POTASSIUM (test code = 2228) 5.0 MEQ/L CHLORIDE (test code = 2215) 104 MEQ/L CARBON DIOXIDE (test code = 26 MEQ/L 2205) CALCIUM (test code = 2209) 9.5 MG/DL PROTEIN, TOTAL (test code = 7.7 G/DL 2228) ALBUMIN (test code = 2201) 4.3 G/DL CALC GLOBULIN (test code = 3.4 G/DL 2240) CALC A/G RATIO (test code = 1.3 RATIO 2234) BILIRUBIN, TOTAL (test code = 1.1 MG/DL 2206) ALKALINE PHOSPHATASE (test 80 U/L code = 2204) AST (test code = 2218) 26 U/L ALT (test code = 2219) 20 U/L [id number] 00:00:00 Test Item Value Reference Range Interpretation Comments TSH, THIRD GENERATION (test code 2.480 UIU/ML = 2821) [id number] 00:00:00 Test Item Value Reference Range Interpretation Comments TSH, THIRD GENERATION (test code 2.480 UIU/ML = 2821) [id number] 00:00:00 Test Item Value Reference Range Interpretation Comments TSH, THIRD GENERATION (test code 2.480 UIU/ML = 2821) HEMOGLOBIN [id number] 00:00:00 Test Item Value Reference Range Interpretation Comments HEMOGLOBIN A1c (test code = 46880) 5.8 % HEMOGLOBIN [id number] 00:00:00 Test Item Value Reference Range Interpretation Comments HEMOGLOBIN A1c (test code = 00265) 5.8 % HEMOGLOBIN [id number] 00:00:00 Test Item Value Reference Range Interpretation Comments HEMOGLOBIN A1c (test code = 93307) 5.8 % LIPID [id number] 00:00:00 Test Item Value Reference Range Interpretation Comments CHOLESTEROL (test code = 2210) 155 MG/DL TRIGLYCERIDES (test code = 2232) 194 MG/DL HDL CHOLESTEROL (test code = 2220) 39 MG/DL CALC LDL CHOL (test code = 2237) 77 MG/DL RISK RATIO LDL/HDL (test code = 1.98 RATIO 2238) LIPID [id number] 00:00:00 Test Item Value Reference Range Interpretation Comments CHOLESTEROL (test code = 2210) 155 MG/DL TRIGLYCERIDES (test code = 2232) 194 MG/DL HDL CHOLESTEROL (test code = 2220) 39 MG/DL CALC LDL CHOL (test code = 2237) 77 MG/DL RISK RATIO LDL/HDL (test code = 1.98 RATIO 2238) COMPREHENSIVE METABOLIC [id number] 00:00:00 Test Item Value Reference Range Interpretation Comments GLUCOSE (test code = 2217) 106 MG/DL BUN (test code = 2208) 22 MG/DL CREATININE (test code = 2214) 1.27 MG/DL eGFR AMER. (test code 63 ML/MIN/1.73 = 92933) eGFR NON- AMER. (test 54 ML/MIN/1.73 code = 88790) CALC BUN/CREAT (test code = 17 RATIO 2235) SODIUM (test code = 2231) 143 MEQ/L POTASSIUM (test code = 2228) 5.0 MEQ/L CHLORIDE (test code = 2215) 104 MEQ/L CARBON DIOXIDE (test code = 26 MEQ/L 220) CALCIUM (test code = 2209) 9.5 MG/DL PROTEIN, TOTAL (test code = 7.7 G/DL 2228) ALBUMIN (test code = 2201) 4.3 G/DL CALC GLOBULIN (test code = 3.4 G/DL 2240) CALC A/G RATIO (test code = 1.3 RATIO 2234) BILIRUBIN, TOTAL (test code = 1.1 MG/DL 2206) ALKALINE PHOSPHATASE (test 80 U/L code = 2204) AST (test code = 2218) 26 U/L ALT (test code = 2219) 20 U/L COMPREHENSIVE METABOLIC [id number] 00:00:00 Test Item Value Reference Range Interpretation Comments GLUCOSE (test code = 2217) 106 MG/DL BUN (test code = 2208) 22 MG/DL CREATININE (test code = 2214) 1.27 MG/DL eGFR AMER. (test code 63 ML/MIN/1.73 = 58355) eGFR NON- AMER. (test 54 ML/MIN/1.73 code = 53280) CALC BUN/CREAT (test code = 17 RATIO 2235) SODIUM (test code = 2231) 143 MEQ/L POTASSIUM (test code = 2228) 5.0 MEQ/L CHLORIDE (test code = 2215) 104 MEQ/L CARBON DIOXIDE (test code = 26 MEQ/L 220) CALCIUM (test code = 2209) 9.5 MG/DL PROTEIN, TOTAL (test code = 7.7 G/DL 2228) ALBUMIN (test code = 2201) 4.3 G/DL CALC GLOBULIN (test code = 3.4 G/DL 2240) CALC A/G RATIO (test code = 1.3 RATIO 2234) BILIRUBIN, TOTAL (test code = 1.1 MG/DL 2207) ALKALINE PHOSPHATASE (test 80 U/L code = 2204) AST (test code = 2218) 26 U/L ALT (test code = 2219) 20 U/L [id number] 00:00:00 Test Item Value Reference Range Interpretation Comments TSH, THIRD GENERATION (test code 2.480 UIU/ML = 2821) [id number] 00:00:00 Test Item Value Reference Range Interpretation Comments TSH, THIRD GENERATION (test code 2.480 UIU/ML = 2821) [id number] 00:00:00 Test Item Value Reference Range Interpretation Comments TSH, THIRD GENERATION (test code 2.480 UIU/ML = 2821) HEMOGLOBIN [id number] 00:00:00 Test Item Value Reference Range Interpretation Comments HEMOGLOBIN A1c (test code = 29988) 5.9 % HEMOGLOBIN [id number] 00:00:00 Test Item Value Reference Range Interpretation Comments HEMOGLOBIN A1c (test code = 03743) 5.9 % HEMOGLOBIN [id number] 00:00:00 Test Item Value Reference Range Interpretation Comments HEMOGLOBIN A1c (test code = 61141) 5.9 % LIPID [id number] 00:00:00 Test Item Value Reference Range Interpretation Comments CHOLESTEROL (test code = 2210) 217 MG/DL TRIGLYCERIDES (test code = 2232) 260 MG/DL HDL CHOLESTEROL (test code = 2220) 34 MG/DL CALC LDL CHOL (test code = 2237) 131 MG/DL RISK RATIO LDL/HDL (test code = 3.85 RATIO 2238) LIPID [id number] 00:00:00 Test Item Value Reference Range Interpretation Comments CHOLESTEROL (test code = 2210) 217 MG/DL TRIGLYCERIDES (test code = 2232) 260 MG/DL HDL CHOLESTEROL (test code = 2220) 34 MG/DL CALC LDL CHOL (test code = 2237) 131 MG/DL RISK RATIO LDL/HDL (test code = 3.85 RATIO 2238) CBC W/AUTO [id number] 00:00:00 Test Item Value Reference Range Interpretation Comments WBC (test code = 1001) 5.3 K/UL RBC (test code = 1002) 5.30 M/UL HEMOGLOBIN (test code = 1003) 15.0 G/DL HEMATOCRIT (test code = 1004) 45.4 % MCV (test code = 1005) 85.7 fL MCH (test code = 1006) 28.3 PG MCHC (test code = 1007) 33.0 G/DL RDW (test code = 1038) 16.1 % NEUTROPHILS (test code = 1008) 44.2 % LYMPHOCYTES (test code = 1010) 39.7 % MONOCYTES (test code = 1011) 7.9 % EOSINOPHILS (test code = 1012) 6.9 % BASOPHILS (test code = 1013) 1.3 % PLATELET COUNT (test code = 1015) 164 K/UL CBC W/AUTO [id number] 00:00:00 Test Item Value Reference Range Interpretation Comments WBC (test code = 1001) 5.3 K/UL RBC (test code = 1002) 5.30 M/UL HEMOGLOBIN (test code = 1003) 15.0 G/DL HEMATOCRIT (test code = 1004) 45.4 % MCV (test code = 1005) 85.7 fL MCH (test code = 1006) 28.3 PG MCHC (test code = 1007) 33.0 G/DL RDW (test code = 1038) 16.1 % NEUTROPHILS (test code = 1008) 44.2 % LYMPHOCYTES (test code = 1010) 39.7 % MONOCYTES (test code = 1011) 7.9 % EOSINOPHILS (test code = 1012) 6.9 % BASOPHILS (test code = 1013) 1.3 % PLATELET COUNT (test code = 1015) 164 K/UL CBC W/AUTO [id number] 00:00:00 Test Item Value Reference Range Interpretation Comments WBC (test code = 1001) 5.3 K/UL RBC (test code = 1002) 5.30 M/UL HEMOGLOBIN (test code = 1003) 15.0 G/DL HEMATOCRIT (test code = 1004) 45.4 % MCV (test code = 1005) 85.7 fL MCH (test code = 1006) 28.3 PG MCHC (test code = 1007) 33.0 G/DL RDW (test code = 1038) 16.1 % NEUTROPHILS (test code = 1008) 44.2 % LYMPHOCYTES (test code = 1010) 39.7 % MONOCYTES (test code = 1011) 7.9 % EOSINOPHILS (test code = 1012) 6.9 % BASOPHILS (test code = 1013) 1.3 % PLATELET COUNT (test code = 1015) 164 K/UL PSA, [id number] 00:00:00 Test Item Value Reference Range Interpretation Comments PSA, TOTAL (test code = 2606) 1.52 NG/ML PSA, [id number] 00:00:00 Test Item Value Reference Range Interpretation Comments PSA, TOTAL (test code = 2606) 1.52 NG/ML PSA, [id number] 00:00:00 Test Item Value Reference Range Interpretation Comments PSA, TOTAL (test code = 2606) 1.52 NG/ML HEMOGLOBIN [id number] 00:00:00 Test Item Value Reference Range Interpretation Comments HEMOGLOBIN A1c (test code = 69848) 5.9 % HEMOGLOBIN [id number] 00:00:00 Test Item Value Reference Range Interpretation Comments HEMOGLOBIN A1c (test code = 85239) 5.9 % HEMOGLOBIN [id number] 00:00:00 Test Item Value Reference Range Interpretation Comments HEMOGLOBIN A1c (test code = 22742) 5.9 % LIPID [id number] 00:00:00 Test Item Value Reference Range Interpretation Comments CHOLESTEROL (test code = 2210) 217 MG/DL TRIGLYCERIDES (test code = 2232) 260 MG/DL HDL CHOLESTEROL (test code = 2220) 34 MG/DL CALC LDL CHOL (test code = 2237) 131 MG/DL RISK RATIO LDL/HDL (test code = 3.85 RATIO 2238) LIPID [id number] 00:00:00 Test Item Value Reference Range Interpretation Comments CHOLESTEROL (test code = 2210) 217 MG/DL TRIGLYCERIDES (test code = 2232) 260 MG/DL HDL CHOLESTEROL (test code = 2220) 34 MG/DL CALC LDL CHOL (test code = 2237) 131 MG/DL RISK RATIO LDL/HDL (test code = 3.85 RATIO 2238) CBC W/AUTO [id number] 00:00:00 Test Item Value Reference Range Interpretation Comments WBC (test code = 1001) 5.3 K/UL RBC (test code = 1002) 5.30 M/UL HEMOGLOBIN (test code = 1003) 15.0 G/DL HEMATOCRIT (test code = 1004) 45.4 % MCV (test code = 1005) 85.7 fL MCH (test code = 1006) 28.3 PG MCHC (test code = 1007) 33.0 G/DL RDW (test code = 1038) 16.1 % NEUTROPHILS (test code = 1008) 44.2 % LYMPHOCYTES (test code = 1010) 39.7 % MONOCYTES (test code = 1011) 7.9 % EOSINOPHILS (test code = 1012) 6.9 % BASOPHILS (test code = 1013) 1.3 % PLATELET COUNT (test code = 1015) 164 K/UL CBC W/AUTO [id number] 00:00:00 Test Item Value Reference Range Interpretation Comments WBC (test code = 1001) 5.3 K/UL RBC (test code = 1002) 5.30 M/UL HEMOGLOBIN (test code = 1003) 15.0 G/DL HEMATOCRIT (test code = 1004) 45.4 % MCV (test code = 1005) 85.7 fL MCH (test code = 1006) 28.3 PG MCHC (test code = 1007) 33.0 G/DL RDW (test code = 1038) 16.1 % NEUTROPHILS (test code = 1008) 44.2 % LYMPHOCYTES (test code = 1010) 39.7 % MONOCYTES (test code = 1011) 7.9 % EOSINOPHILS (test code = 1012) 6.9 % BASOPHILS (test code = 1013) 1.3 % PLATELET COUNT (test code = 1015) 164 K/UL CBC W/AUTO [id number] 00:00:00 Test Item Value Reference Range Interpretation Comments WBC (test code = 1001) 5.3 K/UL RBC (test code = 1002) 5.30 M/UL HEMOGLOBIN (test code = 1003) 15.0 G/DL HEMATOCRIT (test code = 1004) 45.4 % MCV (test code = 1005) 85.7 fL MCH (test code = 1006) 28.3 PG MCHC (test code = 1007) 33.0 G/DL RDW (test code = 1038) 16.1 % NEUTROPHILS (test code = 1008) 44.2 % LYMPHOCYTES (test code = 1010) 39.7 % MONOCYTES (test code = 1011) 7.9 % EOSINOPHILS (test code = 1012) 6.9 % BASOPHILS (test code = 1013) 1.3 % PLATELET COUNT (test code = 1015) 164 K/UL PSA, [id number] 00:00:00 Test Item Value Reference Range Interpretation Comments PSA, TOTAL (test code = 2606) 1.52 NG/ML PSA, [id number] 00:00:00 Test Item Value Reference Range Interpretation Comments PSA, TOTAL (test code = 2606) 1.52 NG/ML PSA, [id number] 00:00:00 Test Item Value Reference Range Interpretation Comments PSA, TOTAL (test code = 2606) 1.52 NG/ML COMPREHENSIVE METABOLIC [id number] 00:00:00 Test Item Value Reference Range Interpretation Comments GLUCOSE (test code = 2217) 122 MG/DL BUN (test code = 2208) 17 MG/DL CREATININE (test code = 2214) 1.21 MG/DL eGFR AMER. (test code 67 ML/MIN/1.73 = 35757) eGFR NON- AMER. (test 57 ML/MIN/1.73 code = 67062) CALC BUN/CREAT (test code = 14 RATIO 2235) SODIUM (test code = 2231) 140 MEQ/L POTASSIUM (test code = 2228) 3.9 MEQ/L CHLORIDE (test code = 2215) 98 MEQ/L CARBON DIOXIDE (test code = 24 MEQ/L 2205) CALCIUM (test code = 2209) 9.7 MG/DL PROTEIN, TOTAL (test code = 7.5 G/DL 2228) ALBUMIN (test code = 2201) 3.9 G/DL CALC GLOBULIN (test code = 3.6 G/DL 2240) CALC A/G RATIO (test code = 1.1 RATIO 2234) BILIRUBIN, TOTAL (test code = 0.7 MG/DL 2206) ALKALINE PHOSPHATASE (test 78 U/L code = 2204) AST (test code = 2218) 25 U/L ALT (test code = 2219) 18 U/L COMPREHENSIVE METABOLIC [id number] 00:00:00 Test Item Value Reference Range Interpretation Comments GLUCOSE (test code = 2217) 122 MG/DL BUN (test code = 2208) 17 MG/DL CREATININE (test code = 2214) 1.21 MG/DL eGFR AMER. (test code 67 ML/MIN/1.73 = 68214) eGFR NON- AMER. (test 57 ML/MIN/1.73 code = 85591) CALC BUN/CREAT (test code = 14 RATIO 2235) SODIUM (test code = 2231) 140 MEQ/L POTASSIUM (test code = 2228) 3.9 MEQ/L CHLORIDE (test code = 2215) 98 MEQ/L CARBON DIOXIDE (test code = 24 MEQ/L 220) CALCIUM (test code = 2209) 9.7 MG/DL PROTEIN, TOTAL (test code = 7.5 G/DL 2228) ALBUMIN (test code = 2201) 3.9 G/DL CALC GLOBULIN (test code = 3.6 G/DL 2239) CALC A/G RATIO (test code = 1.1 RATIO 2233) BILIRUBIN, TOTAL (test code = 0.7 MG/DL 2206) ALKALINE PHOSPHATASE (test 78 U/L code = 2204) AST (test code = 2218) 25 U/L ALT (test code = 2219) 18 U/L [id number] 00:00:00 Test Item Value Reference Range Interpretation Comments TSH (test code = 2821) 3.670 UIU/ML [id number] 00:00:00 Test Item Value Reference Range Interpretation Comments TSH (test code = 2821) 3.670 UIU/ML [id number] 00:00:00 Test Item Value Reference Range Interpretation Comments TSH (test code = 2821) 3.670 UIU/ML COMPREHENSIVE METABOLIC [id number] 00:00:00 Test Item Value Reference Range Interpretation Comments GLUCOSE (test code = 2217) 122 MG/DL BUN (test code = 2208) 17 MG/DL CREATININE (test code = 2214) 1.21 MG/DL eGFR AMER. (test code 67 ML/MIN/1.73 = 56968) eGFR NON- AMER. (test 57 ML/MIN/1.73 code = 42261) CALC BUN/CREAT (test code = 14 RATIO 2235) SODIUM (test code = 2231) 140 MEQ/L POTASSIUM (test code = 2228) 3.9 MEQ/L CHLORIDE (test code = 2215) 98 MEQ/L CARBON DIOXIDE (test code = 24 MEQ/L 2206) CALCIUM (test code = 2209) 9.7 MG/DL PROTEIN, TOTAL (test code = 7.5 G/DL 222) ALBUMIN (test code = 2201) 3.9 G/DL CALC GLOBULIN (test code = 3.6 G/DL 2240) CALC A/G RATIO (test code = 1.1 RATIO 2234) BILIRUBIN, TOTAL (test code = 0.7 MG/DL 2207) ALKALINE PHOSPHATASE (test 78 U/L code = 2204) AST (test code = 2218) 25 U/L ALT (test code = 2219) 18 U/L COMPREHENSIVE METABOLIC [id number] 00:00:00 Test Item Value Reference Range Interpretation Comments GLUCOSE (test code = 2217) 122 MG/DL BUN (test code = 2208) 17 MG/DL CREATININE (test code = 2214) 1.21 MG/DL eGFR AMER. (test code 67 ML/MIN/1.73 = 71621) eGFR NON- AMER. (test 57 ML/MIN/1.73 code = 14438) CALC BUN/CREAT (test code = 14 RATIO 2235) SODIUM (test code = 2231) 140 MEQ/L POTASSIUM (test code = 2228) 3.9 MEQ/L CHLORIDE (test code = 2215) 98 MEQ/L CARBON DIOXIDE (test code = 24 MEQ/L 2205) CALCIUM (test code = 2209) 9.7 MG/DL PROTEIN, TOTAL (test code = 7.5 G/DL 2228) ALBUMIN (test code = 2201) 3.9 G/DL CALC GLOBULIN (test code = 3.6 G/DL 2240) CALC A/G RATIO (test code = 1.1 RATIO 2234) BILIRUBIN, TOTAL (test code = 0.7 MG/DL 2207) ALKALINE PHOSPHATASE (test 78 U/L code = 2204) AST (test code = 2218) 25 U/L ALT (test code = 2219) 18 U/L [id number] 00:00:00 Test Item Value Reference Range Interpretation Comments TSH (test code = 2821) 3.670 UIU/ML [id number] 00:00:00 Test Item Value Reference Range Interpretation Comments TSH (test code = 2821) 3.670 UIU/ML [id number] 00:00:00 Test Item Value Reference Range Interpretation Comments TSH (test code = 2821) 3.670 UIU/ML [id number] 00:00:00 Test Item Value Reference Range Interpretation Comments TSH (test code = 2821) 1.680 UIU/ML [id number] 00:00:00 Test Item Value Reference Range Interpretation Comments TSH (test code = 2821) 1.680 UIU/ML [id number] 00:00:00 Test Item Value Reference Range Interpretation Comments TSH (test code = 2821) 1.680 UIU/ML [id number] 00:00:00 Test Item Value Reference Range Interpretation Comments TSH (test code = 2821) 1.680 UIU/ML [id number] 00:00:00 Test Item Value Reference Range Interpretation Comments TSH (test code = 2821) 1.680 UIU/ML [id number] 00:00:00 Test Item Value Reference Range Interpretation Comments TSH (test code = 2821) 1.680 UIU/ML COMPREHENSIVE METABOLIC [id number] 00:00:00 Test Item Value Reference Range Interpretation Comments GLUCOSE (test code = 2217) 94 MG/DL BUN (test code = 2208) 14 MG/DL CREATININE (test code = 2214) 0.83 MG/DL eGFR AMER. (test code 98 ML/MIN/1.73 = 03569) eGFR NON- AMER. (test 85 ML/MIN/1.73 code = 79161) CALC BUN/CREAT (test code = 17 RATIO 2235) SODIUM (test code = 2231) 141 MEQ/L POTASSIUM (test code = 2228) 4.3 MEQ/L CHLORIDE (test code = 2215) 104 MEQ/L CARBON DIOXIDE (test code = 24 MEQ/L 2205) CALCIUM (test code = 2209) 8.7 MG/DL PROTEIN, TOTAL (test code = 7.6 G/DL 2228) ALBUMIN (test code = 2201) 4.5 G/DL CALC GLOBULIN (test code = 3.1 G/DL 2239) CALC A/G RATIO (test code = 1.5 RATIO 2233) BILIRUBIN, TOTAL (test code = 1.4 MG/DL 2206) ALKALINE PHOSPHATASE (test 84 U/L code = 2204) AST (test code = 2218) 30 U/L ALT (test code = 2219) 17 U/L COMPREHENSIVE METABOLIC [id number] 00:00:00 Test Item Value Reference Range Interpretation Comments GLUCOSE (test code = 2217) 94 MG/DL BUN (test code = 2208) 14 MG/DL CREATININE (test code = 2214) 0.83 MG/DL eGFR AMER. (test code 98 ML/MIN/1.73 = 86071) eGFR NON- AMER. (test 85 ML/MIN/1.73 code = 84594) CALC BUN/CREAT (test code = 17 RATIO 2235) SODIUM (test code = 2231) 141 MEQ/L POTASSIUM (test code = 2228) 4.3 MEQ/L CHLORIDE (test code = 2215) 104 MEQ/L CARBON DIOXIDE (test code = 24 MEQ/L 2205) CALCIUM (test code = 2209) 8.7 MG/DL PROTEIN, TOTAL (test code = 7.6 G/DL 222) ALBUMIN (test code = 2201) 4.5 G/DL CALC GLOBULIN (test code = 3.1 G/DL 2240) CALC A/G RATIO (test code = 1.5 RATIO 2234) BILIRUBIN, TOTAL (test code = 1.4 MG/DL 220) ALKALINE PHOSPHATASE (test 84 U/L code = 2204) AST (test code = 2218) 30 U/L ALT (test code = 2219) 17 U/L [id number] 00:00:00 Test Item Value Reference Range Interpretation Comments TSH (test code = 2821) 0.359 UIU/ML [id number] 00:00:00 Test Item Value Reference Range Interpretation Comments TSH (test code = 2821) 0.359 UIU/ML [id number] 00:00:00 Test Item Value Reference Range Interpretation Comments TSH (test code = 2821) 0.359 UIU/ML COMPREHENSIVE METABOLIC [id number] 00:00:00 Test Item Value Reference Range Interpretation Comments GLUCOSE (test code = 2217) 94 MG/DL BUN (test code = 2208) 14 MG/DL CREATININE (test code = 2214) 0.83 MG/DL eGFR AMER. (test code 98 ML/MIN/1.73 = 18829) eGFR NON- AMER. (test 85 ML/MIN/1.73 code = 34887) CALC BUN/CREAT (test code = 17 RATIO 2235) SODIUM (test code = 2231) 141 MEQ/L POTASSIUM (test code = 2228) 4.3 MEQ/L CHLORIDE (test code = 2215) 104 MEQ/L CARBON DIOXIDE (test code = 24 MEQ/L 2206) CALCIUM (test code = 2209) 8.7 MG/DL PROTEIN, TOTAL (test code = 7.6 G/DL 222) ALBUMIN (test code = 2201) 4.5 G/DL CALC GLOBULIN (test code = 3.1 G/DL 2240) CALC A/G RATIO (test code = 1.5 RATIO 2234) BILIRUBIN, TOTAL (test code = 1.4 MG/DL 2206) ALKALINE PHOSPHATASE (test 84 U/L code = 220) AST (test code = 2218) 30 U/L ALT (test code = 2219) 17 U/L COMPREHENSIVE METABOLIC [id number] 00:00:00 Test Item Value Reference Range Interpretation Comments GLUCOSE (test code = 2217) 94 MG/DL BUN (test code = 2208) 14 MG/DL CREATININE (test code = 2214) 0.83 MG/DL eGFR AMER. (test code 98 ML/MIN/1.73 = 55021) eGFR NON- AMER. (test 85 ML/MIN/1.73 code = 71485) CALC BUN/CREAT (test code = 17 RATIO 2235) SODIUM (test code = 2231) 141 MEQ/L POTASSIUM (test code = 2228) 4.3 MEQ/L CHLORIDE (test code = 2215) 104 MEQ/L CARBON DIOXIDE (test code = 24 MEQ/L 2206) CALCIUM (test code = 2209) 8.7 MG/DL PROTEIN, TOTAL (test code = 7.6 G/DL 2229) ALBUMIN (test code = 2201) 4.5 G/DL CALC GLOBULIN (test code = 3.1 G/DL 2240) CALC A/G RATIO (test code = 1.5 RATIO 2234) BILIRUBIN, TOTAL (test code = 1.4 MG/DL 2206) ALKALINE PHOSPHATASE (test 84 U/L code = 2204) AST (test code = 2218) 30 U/L ALT (test code = 2219) 17 U/L [id number] 00:00:00 Test Item Value Reference Range Interpretation Comments TSH (test code = 2821) 0.359 UIU/ML [id number] 00:00:00 Test Item Value Reference Range Interpretation Comments TSH (test code = 2821) 0.359 UIU/ML [id number] 00:00:00 Test Item Value Reference Range Interpretation Comments TSH (test code = 2821) 0.359 UIU/ML [id number] 00:00:00 Test Item Value Reference Range Interpretation Comments TSH (test code = 2821) 0.582 UIU/ML [id number] 00:00:00 Test Item Value Reference Range Interpretation Comments TSH (test code = 2821) 0.582 UIU/ML [id number] 00:00:00 Test Item Value Reference Range Interpretation Comments TSH (test code = 2821) 0.582 UIU/ML [id number] 00:00:00 Test Item Value Reference Range Interpretation Comments TSH (test code = 2821) 0.582 UIU/ML [id number] 00:00:00 Test Item Value Reference Range Interpretation Comments TSH (test code = 2821) 0.582 UIU/ML [id number] 00:00:00 Test Item Value Reference Range Interpretation Comments TSH (test code = 2821) 0.582 UIU/ML [id number] 00:00:00 Test Item Value Reference Range Interpretation Comments TSH (test code = 2821) 5.760 UIU/ML [id number] 00:00:00 Test Item Value Reference Range Interpretation Comments TSH (test code = 2821) 5.760 UIU/ML [id number] 00:00:00 Test Item Value Reference Range Interpretation Comments TSH (test code = 2821) 5.760 UIU/ML [id number] 00:00:00 Test Item Value Reference Range Interpretation Comments TSH (test code = 2821) 5.760 UIU/ML [id number] 00:00:00 Test Item Value Reference Range Interpretation Comments TSH (test code = 2821) 5.760 UIU/ML [id number] 00:00:00 Test Item Value Reference Range Interpretation Comments TSH (test code = 2821) 5.760 UIU/ML COMPREHENSIVE METABOLIC [id number] 00:00:00 Test Item Value Reference Range Interpretation Comments GLUCOSE (test code = 2217) 97 MG/DL BUN (test code = 2208) 19 MG/DL CREATININE (test code = 2214) 1.18 MG/DL eGFR AMER. (test code 69 ML/MIN/1.73 = 61531) eGFR NON- AMER. (test 60 ML/MIN/1.73 code = 80701) CALC BUN/CREAT (test code = 16 RATIO 2235) SODIUM (test code = 2231) 143 MEQ/L POTASSIUM (test code = 2228) 4.3 MEQ/L CHLORIDE (test code = 2215) 103 MEQ/L CARBON DIOXIDE (test code = 24 MEQ/L 2205) CALCIUM (test code = 2209) 8.9 MG/DL PROTEIN, TOTAL (test code = 7.0 G/DL 2228) ALBUMIN (test code = 2201) 4.1 G/DL CALC GLOBULIN (test code = 2.9 G/DL 224) CALC A/G RATIO (test code = 1.4 RATIO 2234) BILIRUBIN, TOTAL (test code = 1.0 MG/DL 2206) ALKALINE PHOSPHATASE (test 83 U/L code = 2204) AST (test code = 2218) 37 U/L ALT (test code = 2219) 30 U/L COMPREHENSIVE METABOLIC [id number] 00:00:00 Test Item Value Reference Range Interpretation Comments GLUCOSE (test code = 2217) 97 MG/DL BUN (test code = 2208) 19 MG/DL CREATININE (test code = 2214) 1.18 MG/DL eGFR AMER. (test code 69 ML/MIN/1.73 = 83253) eGFR NON- AMER. (test 60 ML/MIN/1.73 code = 18994) CALC BUN/CREAT (test code = 16 RATIO 2235) SODIUM (test code = 2231) 143 MEQ/L POTASSIUM (test code = 2228) 4.3 MEQ/L CHLORIDE (test code = 2215) 103 MEQ/L CARBON DIOXIDE (test code = 24 MEQ/L 220) CALCIUM (test code = 2209) 8.9 MG/DL PROTEIN, TOTAL (test code = 7.0 G/DL 2228) ALBUMIN (test code = 2201) 4.1 G/DL CALC GLOBULIN (test code = 2.9 G/DL 2240) CALC A/G RATIO (test code = 1.4 RATIO 2234) BILIRUBIN, TOTAL (test code = 1.0 MG/DL 2206) ALKALINE PHOSPHATASE (test 83 U/L code = 2204) AST (test code = 2218) 37 U/L ALT (test code = 2219) 30 U/L [id number] 00:00:00 Test Item Value Reference Range Interpretation Comments TSH (test code = 2821) 7.750 UIU/ML [id number] 00:00:00 Test Item Value Reference Range Interpretation Comments TSH (test code = 2821) 7.750 UIU/ML [id number] 00:00:00 Test Item Value Reference Range Interpretation Comments TSH (test code = 2821) 7.750 UIU/ML COMPREHENSIVE METABOLIC [id number] 00:00:00 Test Item Value Reference Range Interpretation Comments GLUCOSE (test code = 2217) 97 MG/DL BUN (test code = 2208) 19 MG/DL CREATININE (test code = 2214) 1.18 MG/DL eGFR AMER. (test code 69 ML/MIN/1.73 = 90304) eGFR NON- AMER. (test 60 ML/MIN/1.73 code = 47234) CALC BUN/CREAT (test code = 16 RATIO 2235) SODIUM (test code = 2231) 143 MEQ/L POTASSIUM (test code = 2228) 4.3 MEQ/L CHLORIDE (test code = 2215) 103 MEQ/L CARBON DIOXIDE (test code = 24 MEQ/L 2205) CALCIUM (test code = 2209) 8.9 MG/DL PROTEIN, TOTAL (test code = 7.0 G/DL 2228) ALBUMIN (test code = 2201) 4.1 G/DL CALC GLOBULIN (test code = 2.9 G/DL 2240) CALC A/G RATIO (test code = 1.4 RATIO 2234) BILIRUBIN, TOTAL (test code = 1.0 MG/DL 2206) ALKALINE PHOSPHATASE (test 83 U/L code = 2204) AST (test code = 2218) 37 U/L ALT (test code = 2219) 30 U/L COMPREHENSIVE METABOLIC [id number] 00:00:00 Test Item Value Reference Range Interpretation Comments GLUCOSE (test code = 2217) 97 MG/DL BUN (test code = 2208) 19 MG/DL CREATININE (test code = 2214) 1.18 MG/DL eGFR AMER. (test code 69 ML/MIN/1.73 = 10129) eGFR NON- AMER. (test 60 ML/MIN/1.73 code = 24020) CALC BUN/CREAT (test code = 16 RATIO 2235) SODIUM (test code = 2231) 143 MEQ/L POTASSIUM (test code = 2228) 4.3 MEQ/L CHLORIDE (test code = 2215) 103 MEQ/L CARBON DIOXIDE (test code = 24 MEQ/L 2205) CALCIUM (test code = 2209) 8.9 MG/DL PROTEIN, TOTAL (test code = 7.0 G/DL 2228) ALBUMIN (test code = 2201) 4.1 G/DL CALC GLOBULIN (test code = 2.9 G/DL 224) CALC A/G RATIO (test code = 1.4 RATIO 2234) BILIRUBIN, TOTAL (test code = 1.0 MG/DL 2206) ALKALINE PHOSPHATASE (test 83 U/L code = 2204) AST (test code = 2218) 37 U/L ALT (test code = 2219) 30 U/L [id number] 00:00:00 Test Item Value Reference Range Interpretation Comments TSH (test code = 2821) 7.750 UIU/ML [id number] 00:00:00 Test Item Value Reference Range Interpretation Comments TSH (test code = 2821) 7.750 UIU/ML [id number] 00:00:00 Test Item Value Reference Range Interpretation Comments TSH (test code = 2821) 7.750 UIU/ML THYROID II PROFILE (T3U, T4, T7, TSH)[id number] 00:00:00 Test Item Value Reference Range Interpretation Comments T3 UPTAKE (test code = 2817) 34.0 % T4 (THYROXINE) (test code = 2819) 4.9 UG/DL CALCULATED T7 (FTI) (test code = 1.67 1110) TSH (test code = 2821) 2.8 UIU/ML THYROID II PROFILE (T3U, T4, T7, TSH)2016-04-17 00:00:00 Test Item Value Reference Range Interpretation Comments T3 UPTAKE (test code = 2817) 34.0 % T4 (THYROXINE) (test code = 2819) 4.9 UG/DL CALCULATED T7 (FTI) (test code = 1.67 2820) TSH (test code = 2821) 2.8 UIU/ML THYROID II PROFILE (T3U, T4, T7, TSH)2016-04-17 00:00:00 Test Item Value Reference Range Interpretation Comments T3 UPTAKE (test code = 2817) 34.0 % T4 (THYROXINE) (test code = 2819) 4.9 UG/DL CALCULATED T7 (FTI) (test code = 1.67 2820) TSH (test code = 2821) 2.8 UIU/ML THYROID II PROFILE (T3U, T4, T7, TSH)2016-04-17 00:00:00 Test Item Value Reference Range Interpretation Comments T3 UPTAKE (test code = 2817) 34.0 % T4 (THYROXINE) (test code = 2819) 4.9 UG/DL CALCULATED T7 (FTI) (test code = 1.67 2820) TSH (test code = 2821) 2.8 UIU/ML COMPREHENSIVE METABOLIC [id number] 00:00:00 Test Item Value Reference Range Interpretation Comments GLUCOSE (test code = 2217) 94 MG/DL BUN (test code = 2208) 14 MG/DL CREATININE (test code = 2214) 0.85 MG/DL eGFR AMER. (test code 99 ML/MIN/1.73 = 23402) eGFR NON- AMER. (test 85 ML/MIN/1.73 code = 56304) CALC BUN/CREAT (test code = 16 RATIO 2235) SODIUM (test code = 2231) 142 MEQ/L POTASSIUM (test code = 2228) 5.4 MEQ/L CHLORIDE (test code = 2215) 103 MEQ/L CARBON DIOXIDE (test code = 26 MEQ/L 2205) CALCIUM (test code = 2209) 9.5 MG/DL PROTEIN, TOTAL (test code = 7.6 G/DL 2228) ALBUMIN (test code = 2201) 4.9 G/DL CALC GLOBULIN (test code = 2.7 G/DL 2239) CALC A/G RATIO (test code = 1.8 RATIO 2234) BILIRUBIN, TOTAL (test code = 0.8 MG/DL 2206) ALKALINE PHOSPHATASE (test 79 U/L code = 2204) AST (test code = 2218) 25 U/L ALT (test code = 2219) 13 U/L COMPREHENSIVE METABOLIC [id number] 00:00:00 Test Item Value Reference Range Interpretation Comments GLUCOSE (test code = 2217) 94 MG/DL BUN (test code = 2208) 14 MG/DL CREATININE (test code = 2214) 0.85 MG/DL eGFR AMER. (test code 99 ML/MIN/1.73 = 96331) eGFR NON- AMER. (test 85 ML/MIN/1.73 code = 93496) CALC BUN/CREAT (test code = 16 RATIO 2235) SODIUM (test code = 2231) 142 MEQ/L POTASSIUM (test code = 2228) 5.4 MEQ/L CHLORIDE (test code = 2215) 103 MEQ/L CARBON DIOXIDE (test code = 26 MEQ/L 2205) CALCIUM (test code = 2209) 9.5 MG/DL PROTEIN, TOTAL (test code = 7.6 G/DL 2228) ALBUMIN (test code = 2201) 4.9 G/DL CALC GLOBULIN (test code = 2.7 G/DL 2240) CALC A/G RATIO (test code = 1.8 RATIO 2234) BILIRUBIN, TOTAL (test code = 0.8 MG/DL 2206) ALKALINE PHOSPHATASE (test 79 U/L code = 2204) AST (test code = 2218) 25 U/L ALT (test code = 2219) 13 U/L LIPID [id number] 00:00:00 Test Item Value Reference Range Interpretation Comments CHOLESTEROL (test code = 2210) 152 MG/DL TRIGLYCERIDES (test code = 2232) 96 MG/DL HDL CHOLESTEROL (test code = 2220) 46 MG/DL CALC LDL CHOL (test code = 2237) 87 MG/DL RISK RATIO LDL/HDL (test code = 1.89 RATIO 2238) LIPID [id number] 00:00:00 Test Item Value Reference Range Interpretation Comments CHOLESTEROL (test code = 2210) 152 MG/DL TRIGLYCERIDES (test code = 2232) 96 MG/DL HDL CHOLESTEROL (test code = 2220) 46 MG/DL CALC LDL CHOL (test code = 2237) 87 MG/DL RISK RATIO LDL/HDL (test code = 1.89 RATIO 2238) HEMOGLOBIN [id number] 00:00:00 Test Item Value Reference Range Interpretation Comments HEMOGLOBIN A1c (test code = 55175) 5.9 % HEMOGLOBIN [id number] 00:00:00 Test Item Value Reference Range Interpretation Comments HEMOGLOBIN A1c (test code = 30597) 5.9 % HEMOGLOBIN [id number] 00:00:00 Test Item Value Reference Range Interpretation Comments HEMOGLOBIN A1c (test code = 29562) 5.9 % THYROID II PROFILE (T3U, T4, T7, TSH)2016-02-13 00:00:00 Test Item Value Reference Range Interpretation Comments T3 UPTAKE (test code = 2817) 34.1 % T4 (THYROXINE) (test code = 2819) 5.2 UG/DL CALCULATED T7 (FTI) (test code = 1.77 2820) TSH (test code = 2821) 0.1 UIU/ML THYROID II PROFILE (T3U, T4, T7, TSH)2016-02-13 00:00:00 Test Item Value Reference Range Interpretation Comments T3 UPTAKE (test code = 2817) 34.1 % T4 (THYROXINE) (test code = 2819) 5.2 UG/DL CALCULATED T7 (FTI) (test code = 1.77 2820) TSH (test code = 2821) 0.1 UIU/ML COMPREHENSIVE METABOLIC [id number] 00:00:00 Test Item Value Reference Range Interpretation Comments GLUCOSE (test code = 2217) 94 MG/DL BUN (test code = 2208) 14 MG/DL CREATININE (test code = 2214) 0.85 MG/DL eGFR AMER. (test code 99 ML/MIN/1.73 = 45566) eGFR NON- AMER. (test 85 ML/MIN/1.73 code = 52209) CALC BUN/CREAT (test code = 16 RATIO 2235) SODIUM (test code = 2231) 142 MEQ/L POTASSIUM (test code = 2228) 5.4 MEQ/L CHLORIDE (test code = 2215) 103 MEQ/L CARBON DIOXIDE (test code = 26 MEQ/L 2205) CALCIUM (test code = 2209) 9.5 MG/DL PROTEIN, TOTAL (test code = 7.6 G/DL 2228) ALBUMIN (test code = 2201) 4.9 G/DL CALC GLOBULIN (test code = 2.7 G/DL 2240) CALC A/G RATIO (test code = 1.8 RATIO 2234) BILIRUBIN, TOTAL (test code = 0.8 MG/DL 220) ALKALINE PHOSPHATASE (test 79 U/L code = 2204) AST (test code = 2218) 25 U/L ALT (test code = 2219) 13 U/L COMPREHENSIVE METABOLIC [id number] 00:00:00 Test Item Value Reference Range Interpretation Comments GLUCOSE (test code = 2217) 94 MG/DL BUN (test code = 2208) 14 MG/DL CREATININE (test code = 2214) 0.85 MG/DL eGFR AMER. (test code 99 ML/MIN/1.73 = 82853) eGFR NON- AMER. (test 85 ML/MIN/1.73 code = 62693) CALC BUN/CREAT (test code = 16 RATIO 2235) SODIUM (test code = 2231) 142 MEQ/L POTASSIUM (test code = 2228) 5.4 MEQ/L CHLORIDE (test code = 2215) 103 MEQ/L CARBON DIOXIDE (test code = 26 MEQ/L 220) CALCIUM (test code = 2209) 9.5 MG/DL PROTEIN, TOTAL (test code = 7.6 G/DL 2228) ALBUMIN (test code = 2201) 4.9 G/DL CALC GLOBULIN (test code = 2.7 G/DL 2240) CALC A/G RATIO (test code = 1.8 RATIO 2234) BILIRUBIN, TOTAL (test code = 0.8 MG/DL 2206) ALKALINE PHOSPHATASE (test 79 U/L code = 2204) AST (test code = 2218) 25 U/L ALT (test code = 2219) 13 U/L LIPID [id number] 00:00:00 Test Item Value Reference Range Interpretation Comments CHOLESTEROL (test code = 2210) 152 MG/DL TRIGLYCERIDES (test code = 2232) 96 MG/DL HDL CHOLESTEROL (test code = 2220) 46 MG/DL CALC LDL CHOL (test code = 2237) 87 MG/DL RISK RATIO LDL/HDL (test code = 1.89 RATIO 2238) LIPID [id number] 00:00:00 Test Item Value Reference Range Interpretation Comments CHOLESTEROL (test code = 2210) 152 MG/DL TRIGLYCERIDES (test code = 2232) 96 MG/DL HDL CHOLESTEROL (test code = 2220) 46 MG/DL CALC LDL CHOL (test code = 2237) 87 MG/DL RISK RATIO LDL/HDL (test code = 1.89 RATIO 2238) HEMOGLOBIN [id number] 00:00:00 Test Item Value Reference Range Interpretation Comments HEMOGLOBIN A1c (test code = 37987) 5.9 % HEMOGLOBIN [id number] 00:00:00 Test Item Value Reference Range Interpretation Comments HEMOGLOBIN A1c (test code = 89716) 5.9 % HEMOGLOBIN [id number] 00:00:00 Test Item Value Reference Range Interpretation Comments HEMOGLOBIN A1c (test code = 73006) 5.9 % THYROID II PROFILE (T3U, T4, T7, TSH)[id number] 00:00:00 Test Item Value Reference Range Interpretation Comments T3 UPTAKE (test code = 2817) 34.1 % T4 (THYROXINE) (test code = 2819) 5.2 UG/DL CALCULATED T7 (FTI) (test code = 1.77 2820) TSH (test code = 2821) 0.1 UIU/ML THYROID II PROFILE (T3U, T4, T7, TSH)2016-02-13 00:00:00 Test Item Value Reference Range Interpretation Comments T3 UPTAKE (test code = 2817) 34.1 % T4 (THYROXINE) (test code = 2819) 5.2 UG/DL CALCULATED T7 (FTI) (test code = 1.77 2820) TSH (test code = 2821) 0.1 UIU/ML COMPREHENSIVE METABOLIC [id number] 00:00:00 Test Item Value Reference Range Interpretation Comments GLUCOSE (test code = 2217) 95 MG/DL BUN (test code = 2208) 19 MG/DL CREATININE (test code = 2214) 0.82 MG/DL eGFR AMER. (test code 100 ML/MIN/1.73 = 74930) eGFR NON- AMER. (test 87 ML/MIN/1.73 code = 42575) CALCULATED BUN/CREAT (test 23 RATIO code = 2235) SODIUM (test code = 2231) 136 MEQ/L POTASSIUM (test code = 2228) 5.0 MEQ/L CHLORIDE (test code = 2215) 103 MEQ/L CARBON DIOXIDE (test code = 26 MEQ/L 220) CALCIUM (test code = 2209) 9.7 MG/DL PROTEIN, TOTAL (test code = 7.7 G/DL 2228) ALBUMIN (test code = 2201) 4.4 G/DL CALCULATED GLOBULIN (test 3.3 G/DL code = 2240) CALCULATED A/G RATIO (test 1.3 RATIO code = 2234) BILIRUBIN, TOTAL (test code = 0.6 MG/DL 2206) ALKALINE PHOSPHATASE (test 68 U/L code = 2204) SGOT (AST) (test code = 2218) 19 U/L SGPT (ALT) (test code = 2219) 13 U/L COMPREHENSIVE METABOLIC [id number] 00:00:00 Test Item Value Reference Range Interpretation Comments GLUCOSE (test code = 2217) 95 MG/DL BUN (test code = 2208) 19 MG/DL CREATININE (test code = 2214) 0.82 MG/DL eGFR AMER. (test code 100 ML/MIN/1.73 = 47943) eGFR NON- AMER. (test 87 ML/MIN/1.73 code = 28388) CALCULATED BUN/CREAT (test 23 RATIO code = 2235) SODIUM (test code = 2231) 136 MEQ/L POTASSIUM (test code = 2228) 5.0 MEQ/L CHLORIDE (test code = 2215) 103 MEQ/L CARBON DIOXIDE (test code = 26 MEQ/L 2205) CALCIUM (test code = 2209) 9.7 MG/DL PROTEIN, TOTAL (test code = 7.7 G/DL 2228) ALBUMIN (test code = 2201) 4.4 G/DL CALCULATED GLOBULIN (test 3.3 G/DL code = 2240) CALCULATED A/G RATIO (test 1.3 RATIO code = 2234) BILIRUBIN, TOTAL (test code = 0.6 MG/DL 2206) ALKALINE PHOSPHATASE (test 68 U/L code = 2204) SGOT (AST) (test code = 2218) 19 U/L SGPT (ALT) (test code = 2219) 13 U/L LIPID [id number] 00:00:00 Test Item Value Reference Range Interpretation Comments CHOLESTEROL (test code = 2210) 152 MG/DL TRIGLYCERIDES (test code = 2232) 147 MG/DL HDL CHOLESTEROL (test code = 2220) 45 MG/DL CALCULATED LDL CHOL (test code = 78 MG/DL 2237) RISK RATIO LDL/HDL (test code = 1.72 RATIO 2238) LIPID [id number] 00:00:00 Test Item Value Reference Range Interpretation Comments CHOLESTEROL (test code = 2210) 152 MG/DL TRIGLYCERIDES (test code = 2232) 147 MG/DL HDL CHOLESTEROL (test code = 2220) 45 MG/DL CALCULATED LDL CHOL (test code = 78 MG/DL 2236) RISK RATIO LDL/HDL (test code = 1.72 RATIO 2238) HEMOGLOBIN [id number] 00:00:00 Test Item Value Reference Range Interpretation Comments HEMOGLOBIN A1c (test code = 38404) 6.1 % HEMOGLOBIN [id number] 00:00:00 Test Item Value Reference Range Interpretation Comments HEMOGLOBIN A1c (test code = 68837) 6.1 % HEMOGLOBIN [id number] 00:00:00 Test Item Value Reference Range Interpretation Comments HEMOGLOBIN A1c (test code = 21465) 6.1 % COMPREHENSIVE METABOLIC [id number] 00:00:00 Test Item Value Reference Range Interpretation Comments GLUCOSE (test code = 2217) 95 MG/DL BUN (test code = 2208) 19 MG/DL CREATININE (test code = 2214) 0.82 MG/DL eGFR AMER. (test code 100 ML/MIN/1.73 = 35680) eGFR NON- AMER. (test 87 ML/MIN/1.73 code = 58517) CALCULATED BUN/CREAT (test 23 RATIO code = 2235) SODIUM (test code = 2231) 136 MEQ/L POTASSIUM (test code = 2228) 5.0 MEQ/L CHLORIDE (test code = 2215) 103 MEQ/L CARBON DIOXIDE (test code = 26 MEQ/L 2205) CALCIUM (test code = 2209) 9.7 MG/DL PROTEIN, TOTAL (test code = 7.7 G/DL 2228) ALBUMIN (test code = 2201) 4.4 G/DL CALCULATED GLOBULIN (test 3.3 G/DL code = 2240) CALCULATED A/G RATIO (test 1.3 RATIO code = 2234) BILIRUBIN, TOTAL (test code = 0.6 MG/DL 2206) ALKALINE PHOSPHATASE (test 68 U/L code = 2204) SGOT (AST) (test code = 2218) 19 U/L SGPT (ALT) (test code = 2219) 13 U/L COMPREHENSIVE METABOLIC [id number] 00:00:00 Test Item Value Reference Range Interpretation Comments GLUCOSE (test code = 2217) 95 MG/DL BUN (test code = 2208) 19 MG/DL CREATININE (test code = 2214) 0.82 MG/DL eGFR AMER. (test code 100 ML/MIN/1.73 = 69070) eGFR NON- AMER. (test 87 ML/MIN/1.73 code = 23623) CALCULATED BUN/CREAT (test 23 RATIO code = 2235) SODIUM (test code = 2231) 136 MEQ/L POTASSIUM (test code = 2228) 5.0 MEQ/L CHLORIDE (test code = 2215) 103 MEQ/L CARBON DIOXIDE (test code = 26 MEQ/L 2205) CALCIUM (test code = 2209) 9.7 MG/DL PROTEIN, TOTAL (test code = 7.7 G/DL 2228) ALBUMIN (test code = 2201) 4.4 G/DL CALCULATED GLOBULIN (test 3.3 G/DL code = 2240) CALCULATED A/G RATIO (test 1.3 RATIO code = 2234) BILIRUBIN, TOTAL (test code = 0.6 MG/DL 2206) ALKALINE PHOSPHATASE (test 68 U/L code = 2204) SGOT (AST) (test code = 2218) 19 U/L SGPT (ALT) (test code = 2219) 13 U/L LIPID [id number] 00:00:00 Test Item Value Reference Range Interpretation Comments CHOLESTEROL (test code = 2210) 152 MG/DL TRIGLYCERIDES (test code = 2232) 147 MG/DL HDL CHOLESTEROL (test code = 2220) 45 MG/DL CALCULATED LDL CHOL (test code = 78 MG/DL 2236) RISK RATIO LDL/HDL (test code = 1.72 RATIO 2238) LIPID [id number] 00:00:00 Test Item Value Reference Range Interpretation Comments CHOLESTEROL (test code = 2210) 152 MG/DL TRIGLYCERIDES (test code = 2232) 147 MG/DL HDL CHOLESTEROL (test code = 2220) 45 MG/DL CALCULATED LDL CHOL (test code = 78 MG/DL 2236) RISK RATIO LDL/HDL (test code = 1.72 RATIO 2238) HEMOGLOBIN [id number] 00:00:00 Test Item Value Reference Range Interpretation Comments HEMOGLOBIN A1c (test code = 42786) 6.1 % HEMOGLOBIN [id number] 00:00:00 Test Item Value Reference Range Interpretation Comments HEMOGLOBIN A1c (test code = 81292) 6.1 % HEMOGLOBIN [id number] 00:00:00 Test Item Value Reference Range Interpretation Comments HEMOGLOBIN A1c (test code = 41293) 6.1 % HEMOGLOBIN [id number] 00:00:00 Test Item Value Reference Range Interpretation Comments HEMOGLOBIN A1c (test code = 37460) 6.1 % HEMOGLOBIN [id number] 00:00:00 Test Item Value Reference Range Interpretation Comments HEMOGLOBIN A1c (test code = 61982) 6.1 % HEMOGLOBIN [id number] 00:00:00 Test Item Value Reference Range Interpretation Comments HEMOGLOBIN A1c (test code = 92671) 6.1 % [id number] 00:00:00 Test Item Value Reference Range Interpretation Comments TSH (test code = 2821) 0.8 UIU/ML [id number] 00:00:00 Test Item Value Reference Range Interpretation Comments TSH (test code = 2821) 0.8 UIU/ML [id number] 00:00:00 Test Item Value Reference Range Interpretation Comments TSH (test code = 2821) 0.8 UIU/ML HEMOGLOBIN [id number] 00:00:00 Test Item Value Reference Range Interpretation Comments HEMOGLOBIN A1c (test code = 05945) 6.1 % HEMOGLOBIN [id number] 00:00:00 Test Item Value Reference Range Interpretation Comments HEMOGLOBIN A1c (test code = 34851) 6.1 % HEMOGLOBIN [id number] 00:00:00 Test Item Value Reference Range Interpretation Comments HEMOGLOBIN A1c (test code = 43115) 6.1 % [id number] 00:00:00 Test Item Value Reference Range Interpretation Comments TSH (test code = 2821) 0.8 UIU/ML [id number] 00:00:00 Test Item Value Reference Range Interpretation Comments TSH (test code = 2821) 0.8 UIU/ML [id number] 00:00:00 Test Item Value Reference Range Interpretation Comments TSH (test code = 2821) 0.8 UIU/ML HEMOGLOBIN [id number] 00:00:00 Test Item Value Reference Range Interpretation Comments HEMOGLOBIN A1c (test code = 88734) 6.1 % HEMOGLOBIN [id number] 00:00:00 Test Item Value Reference Range Interpretation Comments HEMOGLOBIN A1c (test code = 11102) 6.1 % HEMOGLOBIN [id number] 00:00:00 Test Item Value Reference Range Interpretation Comments HEMOGLOBIN A1c (test code = 21422) 6.1 % THYROID II PROFILE (T3U, T4, T7, TSH)[id number] 00:00:00 Test Item Value Reference Range Interpretation Comments T3 UPTAKE (test code = 2817) 21.5 % T4 (THYROXINE) (test code = <2.0 UG/DL 2819) CALCULATED T7 (FTI) (test code = (NOTE) 2820) TSH (test code = 2821) 113.8 UIU/ML THYROID II PROFILE (T3U, T4, T7, TSH)[id number] 00:00:00 Test Item Value Reference Range Interpretation Comments T3 UPTAKE (test code = 2817) 21.5 % T4 (THYROXINE) (test code = <2.0 UG/DL 2819) CALCULATED T7 (FTI) (test code = (NOTE) 2820) TSH (test code = 2821) 113.8 UIU/ML HEMOGLOBIN [id number] 00:00:00 Test Item Value Reference Range Interpretation Comments HEMOGLOBIN A1c (test code = 98293) 6.1 % HEMOGLOBIN [id number] 00:00:00 Test Item Value Reference Range Interpretation Comments HEMOGLOBIN A1c (test code = 57839) 6.1 % HEMOGLOBIN [id number] 00:00:00 Test Item Value Reference Range Interpretation Comments HEMOGLOBIN A1c (test code = 19617) 6.1 % THYROID II PROFILE (T3U, T4, T7, TSH)[id number] 00:00:00 Test Item Value Reference Range Interpretation Comments T3 UPTAKE (test code = 2817) 21.5 % T4 (THYROXINE) (test code = <2.0 UG/DL 2819) CALCULATED T7 (FTI) (test code = (NOTE) 2820) TSH (test code = 2821) 113.8 UIU/ML THYROID II PROFILE (T3U, T4, T7, TSH)2015-01-25 00:00:00 Test Item Value Reference Range Interpretation Comments T3 UPTAKE (test code = 2817) 21.5 % T4 (THYROXINE) (test code = <2.0 UG/DL 2819) CALCULATED T7 (FTI) (test code = (NOTE) 2820) TSH (test code = 2821) 113.8 UIU/ML HEMOGLOBIN [id number] 00:00:00 Test Item Value Reference Range Interpretation Comments HEMOGLOBIN A1c (test code = 95966) 6.1 % HEMOGLOBIN [id number] 00:00:00 Test Item Value Reference Range Interpretation Comments HEMOGLOBIN A1c (test code = 70876) 6.1 % HEMOGLOBIN [id number] 00:00:00 Test Item Value Reference Range Interpretation Comments HEMOGLOBIN A1c (test code = 78137) 6.1 % CBC W/AUTO [id number] 00:00:00 Test Item Value Reference Range Interpretation Comments WBC (test code = 1001) 4.5 K/UL RBC (test code = 1002) 5.18 M/UL HEMOGLOBIN (test code = 1003) 14.3 G/DL HEMATOCRIT (test code = 1004) 44.0 % MCV (test code = 1005) 84.9 fL MCH (test code = 1006) 27.6 PG MCHC (test code = 1007) 32.5 G/DL RDW (test code = 1038) 15.0 % NEUTROPHILS (test code = 1008) 46 % LYMPHOCYTES (test code = 1010) 34 % MONOCYTES (test code = 1011) 8 % EOSINOPHILS (test code = 1012) 11 % BASOPHILS (test code = 1013) 1 % PLATELET COUNT (test code = 1015) 266 K/UL CBC W/AUTO [id number] 00:00:00 Test Item Value Reference Range Interpretation Comments WBC (test code = 1001) 4.5 K/UL RBC (test code = 1002) 5.18 M/UL HEMOGLOBIN (test code = 1003) 14.3 G/DL HEMATOCRIT (test code = 1004) 44.0 % MCV (test code = 1005) 84.9 fL MCH (test code = 1006) 27.6 PG MCHC (test code = 1007) 32.5 G/DL RDW (test code = 1038) 15.0 % NEUTROPHILS (test code = 1008) 46 % LYMPHOCYTES (test code = 1010) 34 % MONOCYTES (test code = 1011) 8 % EOSINOPHILS (test code = 1012) 11 % BASOPHILS (test code = 1013) 1 % PLATELET COUNT (test code = 1015) 266 K/UL CBC W/AUTO [id number] 00:00:00 Test Item Value Reference Range Interpretation Comments WBC (test code = 1001) 4.5 K/UL RBC (test code = 1002) 5.18 M/UL HEMOGLOBIN (test code = 1003) 14.3 G/DL HEMATOCRIT (test code = 1004) 44.0 % MCV (test code = 1005) 84.9 fL MCH (test code = 1006) 27.6 PG MCHC (test code = 1007) 32.5 G/DL RDW (test code = 1038) 15.0 % NEUTROPHILS (test code = 1008) 46 % LYMPHOCYTES (test code = 1010) 34 % MONOCYTES (test code = 1011) 8 % EOSINOPHILS (test code = 1012) 11 % BASOPHILS (test code = 1013) 1 % PLATELET COUNT (test code = 1015) 266 K/UL COMPREHENSIVE METABOLIC [id number] 00:00:00 Test Item Value Reference Range Interpretation Comments GLUCOSE (test code = 2217) 75 MG/DL BUN (test code = 2208) 22 MG/DL CREATININE (test code = 2214) 1.2 MG/DL eGFR AMER. (test code 72 ML/MIN/1.73 = 68503) eGFR NON- AMER. (test 59 ML/MIN/1.73 code = 08654) CALCULATED BUN/CREAT (test 18 RATIO code = 2235) SODIUM (test code = 2231) 138 MEQ/L POTASSIUM (test code = 2228) 4.8 MEQ/L CHLORIDE (test code = 2215) 102 MEQ/L CARBON DIOXIDE (test code = 23 MEQ/L 220) CALCIUM (test code = 2209) 9.7 MG/DL PROTEIN, TOTAL (test code = 7.9 G/DL 2228) ALBUMIN (test code = 2201) 4.4 G/DL CALCULATED GLOBULIN (test code 3.5 G/DL = 2240) CALCULATED A/G RATIO (test 1.3 RATIO code = 2234) BILIRUBIN, TOTAL (test code = 0.8 MG/DL 2207) ALKALINE PHOSPHATASE (test 87 U/L code = 2204) SGOT (AST) (test code = 2218) 42 U/L SGPT (ALT) (test code = 2219) 17 U/L COMPREHENSIVE METABOLIC [id number] 00:00:00 Test Item Value Reference Range Interpretation Comments GLUCOSE (test code = 2217) 75 MG/DL BUN (test code = 2208) 22 MG/DL CREATININE (test code = 2214) 1.2 MG/DL eGFR AMER. (test code 72 ML/MIN/1.73 = 32088) eGFR NON- AMER. (test 59 ML/MIN/1.73 code = 42100) CALCULATED BUN/CREAT (test 18 RATIO code = 2235) SODIUM (test code = 2231) 138 MEQ/L POTASSIUM (test code = 2228) 4.8 MEQ/L CHLORIDE (test code = 2215) 102 MEQ/L CARBON DIOXIDE (test code = 23 MEQ/L 2205) CALCIUM (test code = 2209) 9.7 MG/DL PROTEIN, TOTAL (test code = 7.9 G/DL 2228) ALBUMIN (test code = 2201) 4.4 G/DL CALCULATED GLOBULIN (test code 3.5 G/DL = 2240) CALCULATED A/G RATIO (test 1.3 RATIO code = 2234) BILIRUBIN, TOTAL (test code = 0.8 MG/DL 2206) ALKALINE PHOSPHATASE (test 87 U/L code = 2204) SGOT (AST) (test code = 2218) 42 U/L SGPT (ALT) (test code = 2219) 17 U/L LIPID [id number] 00:00:00 Test Item Value Reference Range Interpretation Comments CHOLESTEROL (test code = 2210) 237 MG/DL TRIGLYCERIDES (test code = 2232) 113 MG/DL HDL CHOLESTEROL (test code = 2220) 59 MG/DL CALCULATED LDL CHOL (test code = 155 MG/DL 2236) RISK RATIO LDL/HDL (test code = 2.63 RATIO 2238) LIPID [id number] 00:00:00 Test Item Value Reference Range Interpretation Comments CHOLESTEROL (test code = 2210) 237 MG/DL TRIGLYCERIDES (test code = 2232) 113 MG/DL HDL CHOLESTEROL (test code = 2220) 59 MG/DL CALCULATED LDL CHOL (test code = 155 MG/DL 2236) RISK RATIO LDL/HDL (test code = 2.63 RATIO 2238) THYROID II PROFILE (T3U, T4, T7, TSH)[id number] 00:00:00 Test Item Value Reference Range Interpretation Comments T3 UPTAKE (test code = 2817) 23.7 % T4 (THYROXINE) (test code = 2819) <2.0 UG/DL CALCULATED T7 (FTI) (test code = (NOTE) 2820) TSH (test code = 2821) 80.0 UIU/ML THYROID II PROFILE (T3U, T4, T7, TSH)2014-11-25 00:00:00 Test Item Value Reference Range Interpretation Comments T3 UPTAKE (test code = 2817) 23.7 % T4 (THYROXINE) (test code = 2819) <2.0 UG/DL CALCULATED T7 (FTI) (test code = (NOTE) 2820) TSH (test code = 2821) 80.0 UIU/ML HEMOGLOBIN [id number] 00:00:00 Test Item Value Reference Range Interpretation Comments HEMOGLOBIN A1c (test code = 75795) 6.1 % HEMOGLOBIN [id number] 00:00:00 Test Item Value Reference Range Interpretation Comments HEMOGLOBIN A1c (test code = 09257) 6.1 % HEMOGLOBIN [id number] 00:00:00 Test Item Value Reference Range Interpretation Comments HEMOGLOBIN A1c (test code = 40404) 6.1 % CBC W/AUTO [id number] 00:00:00 Test Item Value Reference Range Interpretation Comments WBC (test code = 1001) 4.5 K/UL RBC (test code = 1002) 5.18 M/UL HEMOGLOBIN (test code = 1003) 14.3 G/DL HEMATOCRIT (test code = 1004) 44.0 % MCV (test code = 1005) 84.9 fL MCH (test code = 1006) 27.6 PG MCHC (test code = 1007) 32.5 G/DL RDW (test code = 1038) 15.0 % NEUTROPHILS (test code = 1008) 46 % LYMPHOCYTES (test code = 1010) 34 % MONOCYTES (test code = 1011) 8 % EOSINOPHILS (test code = 1012) 11 % BASOPHILS (test code = 1013) 1 % PLATELET COUNT (test code = 1015) 266 K/UL CBC W/AUTO [id number] 00:00:00 Test Item Value Reference Range Interpretation Comments WBC (test code = 1001) 4.5 K/UL RBC (test code = 1002) 5.18 M/UL HEMOGLOBIN (test code = 1003) 14.3 G/DL HEMATOCRIT (test code = 1004) 44.0 % MCV (test code = 1005) 84.9 fL MCH (test code = 1006) 27.6 PG MCHC (test code = 1007) 32.5 G/DL RDW (test code = 1038) 15.0 % NEUTROPHILS (test code = 1008) 46 % LYMPHOCYTES (test code = 1010) 34 % MONOCYTES (test code = 1011) 8 % EOSINOPHILS (test code = 1012) 11 % BASOPHILS (test code = 1013) 1 % PLATELET COUNT (test code = 1015) 266 K/UL CBC W/AUTO [id number] 00:00:00 Test Item Value Reference Range Interpretation Comments WBC (test code = 1001) 4.5 K/UL RBC (test code = 1002) 5.18 M/UL HEMOGLOBIN (test code = 1003) 14.3 G/DL HEMATOCRIT (test code = 1004) 44.0 % MCV (test code = 1005) 84.9 fL MCH (test code = 1006) 27.6 PG MCHC (test code = 1007) 32.5 G/DL RDW (test code = 1038) 15.0 % NEUTROPHILS (test code = 1008) 46 % LYMPHOCYTES (test code = 1010) 34 % MONOCYTES (test code = 1011) 8 % EOSINOPHILS (test code = 1012) 11 % BASOPHILS (test code = 1013) 1 % PLATELET COUNT (test code = 1015) 266 K/UL COMPREHENSIVE METABOLIC [id number] 00:00:00 Test Item Value Reference Range Interpretation Comments GLUCOSE (test code = 2217) 75 MG/DL BUN (test code = 2208) 22 MG/DL CREATININE (test code = 2214) 1.2 MG/DL eGFR AMER. (test code 72 ML/MIN/1.73 = 93308) eGFR NON- AMER. (test 59 ML/MIN/1.73 code = 80232) CALCULATED BUN/CREAT (test 18 RATIO code = 2235) SODIUM (test code = 2231) 138 MEQ/L POTASSIUM (test code = 2228) 4.8 MEQ/L CHLORIDE (test code = 2215) 102 MEQ/L CARBON DIOXIDE (test code = 23 MEQ/L 220) CALCIUM (test code = 2209) 9.7 MG/DL PROTEIN, TOTAL (test code = 7.9 G/DL 2228) ALBUMIN (test code = 2201) 4.4 G/DL CALCULATED GLOBULIN (test code 3.5 G/DL = 2240) CALCULATED A/G RATIO (test 1.3 RATIO code = 2234) BILIRUBIN, TOTAL (test code = 0.8 MG/DL 2206) ALKALINE PHOSPHATASE (test 87 U/L code = 2204) SGOT (AST) (test code = 2218) 42 U/L SGPT (ALT) (test code = 2219) 17 U/L COMPREHENSIVE METABOLIC [id number] 00:00:00 Test Item Value Reference Range Interpretation Comments GLUCOSE (test code = 2217) 75 MG/DL BUN (test code = 2208) 22 MG/DL CREATININE (test code = 2214) 1.2 MG/DL eGFR AMER. (test code 72 ML/MIN/1.73 = 32060) eGFR NON- AMER. (test 59 ML/MIN/1.73 code = 05935) CALCULATED BUN/CREAT (test 18 RATIO code = 2235) SODIUM (test code = 2231) 138 MEQ/L POTASSIUM (test code = 2228) 4.8 MEQ/L CHLORIDE (test code = 2215) 102 MEQ/L CARBON DIOXIDE (test code = 23 MEQ/L 2205) CALCIUM (test code = 2209) 9.7 MG/DL PROTEIN, TOTAL (test code = 7.9 G/DL 2228) ALBUMIN (test code = 2201) 4.4 G/DL CALCULATED GLOBULIN (test code 3.5 G/DL = 2240) CALCULATED A/G RATIO (test 1.3 RATIO code = 2234) BILIRUBIN, TOTAL (test code = 0.8 MG/DL 2206) ALKALINE PHOSPHATASE (test 87 U/L code = 2204) SGOT (AST) (test code = 2218) 42 U/L SGPT (ALT) (test code = 2219) 17 U/L LIPID [id number] 00:00:00 Test Item Value Reference Range Interpretation Comments CHOLESTEROL (test code = 2210) 237 MG/DL TRIGLYCERIDES (test code = 2232) 113 MG/DL HDL CHOLESTEROL (test code = 2220) 59 MG/DL CALCULATED LDL CHOL (test code = 155 MG/DL 2237) RISK RATIO LDL/HDL (test code = 2.63 RATIO 2238) LIPID [id number] 00:00:00 Test Item Value Reference Range Interpretation Comments CHOLESTEROL (test code = 2210) 237 MG/DL TRIGLYCERIDES (test code = 2232) 113 MG/DL HDL CHOLESTEROL (test code = 2220) 59 MG/DL CALCULATED LDL CHOL (test code = 155 MG/DL 2237) RISK RATIO LDL/HDL (test code = 2.63 RATIO 2238) THYROID II PROFILE (T3U, T4, T7, TSH)2014-11-25 00:00:00 Test Item Value Reference Range Interpretation Comments T3 UPTAKE (test code = 2817) 23.7 % T4 (THYROXINE) (test code = 2819) <2.0 UG/DL CALCULATED T7 (FTI) (test code = (NOTE) 2820) TSH (test code = 2821) 80.0 UIU/ML THYROID II PROFILE (T3U, T4, T7, TSH)2014-11-25 00:00:00 Test Item Value Reference Range Interpretation Comments T3 UPTAKE (test code = 2817) 23.7 % T4 (THYROXINE) (test code = 2819) <2.0 UG/DL CALCULATED T7 (FTI) (test code = (NOTE) 2820) TSH (test code = 2821) 80.0 UIU/ML COMPREHENSIVE METABOLIC [id number] 00:00:00 Test Item Value Reference Range Interpretation Comments GLUCOSE (test code = 2217) 76 MG/DL BUN (test code = 2208) 18 MG/DL CREATININE (test code = 2214) 1.1 MG/DL eGFR AMER. (test code 79 ML/MIN/1.73 = 34583) eGFR NON- AMER. (test 65 ML/MIN/1.73 code = 93431) CALCULATED BUN/CREAT (test 16 RATIO code = 2235) SODIUM (test code = 2231) 141 MEQ/L POTASSIUM (test code = 2228) 4.6 MEQ/L CHLORIDE (test code = 2215) 106 MEQ/L CARBON DIOXIDE (test code = 24 MEQ/L 6) CALCIUM (test code = 2209) 9.8 MG/DL PROTEIN, TOTAL (test code = 7.4 G/DL 2228) ALBUMIN (test code = 2201) 4.5 G/DL CALCULATED GLOBULIN (test code 2.9 G/DL = 2240) CALCULATED A/G RATIO (test 1.6 RATIO code = 2234) BILIRUBIN, TOTAL (test code = 0.9 MG/DL 2206) ALKALINE PHOSPHATASE (test 70 U/L code = 2204) SGOT (AST) (test code = 2218) 22 U/L SGPT (ALT) (test code = 2219) 10 U/L COMPREHENSIVE METABOLIC [id number] 00:00:00 Test Item Value Reference Range Interpretation Comments GLUCOSE (test code = 2217) 76 MG/DL BUN (test code = 2208) 18 MG/DL CREATININE (test code = 2214) 1.1 MG/DL eGFR AMER. (test code 79 ML/MIN/1.73 = 14261) eGFR NON- AMER. (test 65 ML/MIN/1.73 code = 40906) CALCULATED BUN/CREAT (test 16 RATIO code = 2235) SODIUM (test code = 2231) 141 MEQ/L POTASSIUM (test code = 2228) 4.6 MEQ/L CHLORIDE (test code = 2215) 106 MEQ/L CARBON DIOXIDE (test code = 24 MEQ/L 2205) CALCIUM (test code = 2209) 9.8 MG/DL PROTEIN, TOTAL (test code = 7.4 G/DL 2228) ALBUMIN (test code = 2201) 4.5 G/DL CALCULATED GLOBULIN (test code 2.9 G/DL = 2240) CALCULATED A/G RATIO (test 1.6 RATIO code = 2234) BILIRUBIN, TOTAL (test code = 0.9 MG/DL 2206) ALKALINE PHOSPHATASE (test 70 U/L code = 2204) SGOT (AST) (test code = 2218) 22 U/L SGPT (ALT) (test code = 2219) 10 U/L LIPID [id number] 00:00:00 Test Item Value Reference Range Interpretation Comments CHOLESTEROL (test code = 2210) 126 MG/DL TRIGLYCERIDES (test code = 2232) 152 MG/DL HDL CHOLESTEROL (test code = 2220) 38 MG/DL CALCULATED LDL CHOL (test code = 58 MG/DL 2236) RISK RATIO LDL/HDL (test code = 1.52 RATIO 2238) LIPID [id number] 00:00:00 Test Item Value Reference Range Interpretation Comments CHOLESTEROL (test code = 2210) 126 MG/DL TRIGLYCERIDES (test code = 2232) 152 MG/DL HDL CHOLESTEROL (test code = 2220) 38 MG/DL CALCULATED LDL CHOL (test code = 58 MG/DL 2237) RISK RATIO LDL/HDL (test code = 1.52 RATIO 2238) CBC W/AUTO [id number] 00:00:00 Test Item Value Reference Range Interpretation Comments WBC (test code = 1001) 7.4 K/UL RBC (test code = 1002) 5.24 M/UL HEMOGLOBIN (test code = 1003) 14.7 G/DL HEMATOCRIT (test code = 1004) 45.5 % MCV (test code = 1005) 86.8 fL MCH (test code = 1006) 28.1 PG MCHC (test code = 1007) 32.3 G/DL RDW (test code = 1038) 14.5 % NEUTROPHILS (test code = 1008) 58 % LYMPHOCYTES (test code = 1010) 23 % MONOCYTES (test code = 1011) 9 % EOSINOPHILS (test code = 1012) 9 % BASOPHILS (test code = 1013) 1 % PLATELET COUNT (test code = 1015) 186 K/UL CBC W/AUTO [id number] 00:00:00 Test Item Value Reference Range Interpretation Comments WBC (test code = 1001) 7.4 K/UL RBC (test code = 1002) 5.24 M/UL HEMOGLOBIN (test code = 1003) 14.7 G/DL HEMATOCRIT (test code = 1004) 45.5 % MCV (test code = 1005) 86.8 fL MCH (test code = 1006) 28.1 PG MCHC (test code = 1007) 32.3 G/DL RDW (test code = 1038) 14.5 % NEUTROPHILS (test code = 1008) 58 % LYMPHOCYTES (test code = 1010) 23 % MONOCYTES (test code = 1011) 9 % EOSINOPHILS (test code = 1012) 9 % BASOPHILS (test code = 1013) 1 % PLATELET COUNT (test code = 1015) 186 K/UL CBC W/AUTO [id number] 00:00:00 Test Item Value Reference Range Interpretation Comments WBC (test code = 1001) 7.4 K/UL RBC (test code = 1002) 5.24 M/UL HEMOGLOBIN (test code = 1003) 14.7 G/DL HEMATOCRIT (test code = 1004) 45.5 % MCV (test code = 1005) 86.8 fL MCH (test code = 1006) 28.1 PG MCHC (test code = 1007) 32.3 G/DL RDW (test code = 1038) 14.5 % NEUTROPHILS (test code = 1008) 58 % LYMPHOCYTES (test code = 1010) 23 % MONOCYTES (test code = 1011) 9 % EOSINOPHILS (test code = 1012) 9 % BASOPHILS (test code = 1013) 1 % PLATELET COUNT (test code = 1015) 186 K/UL HEMOGLOBIN [id number] 00:00:00 Test Item Value Reference Range Interpretation Comments HEMOGLOBIN A1c (test code = 34863) 6.1 % HEMOGLOBIN [id number] 00:00:00 Test Item Value Reference Range Interpretation Comments HEMOGLOBIN A1c (test code = 08070) 6.1 % HEMOGLOBIN [id number] 00:00:00 Test Item Value Reference Range Interpretation Comments HEMOGLOBIN A1c (test code = 07649) 6.1 % THYROID II PROFILE (T3U, T4, T7, TSH)2014-09-30 00:00:00 Test Item Value Reference Range Interpretation Comments T3 UPTAKE (test code = 2817) 32.1 % T4 (THYROXINE) (test code = 2819) 6.7 UG/DL CALCULATED T7 (FTI) (test code = 2.15 2820) TSH (test code = 2821) <0.1 UIU/ML THYROID II PROFILE (T3U, T4, T7, TSH)2014-09-30 00:00:00 Test Item Value Reference Range Interpretation Comments T3 UPTAKE (test code = 2817) 32.1 % T4 (THYROXINE) (test code = 2819) 6.7 UG/DL CALCULATED T7 (FTI) (test code = 2.15 2820) TSH (test code = 2821) <0.1 UIU/ML COMPREHENSIVE METABOLIC [id number] 00:00:00 Test Item Value Reference Range Interpretation Comments GLUCOSE (test code = 2217) 76 MG/DL BUN (test code = 2208) 18 MG/DL CREATININE (test code = 2214) 1.1 MG/DL eGFR AMER. (test code 79 ML/MIN/1.73 = 16380) eGFR NON- AMER. (test 65 ML/MIN/1.73 code = 13242) CALCULATED BUN/CREAT (test 16 RATIO code = 2235) SODIUM (test code = 2231) 141 MEQ/L POTASSIUM (test code = 2228) 4.6 MEQ/L CHLORIDE (test code = 2215) 106 MEQ/L CARBON DIOXIDE (test code = 24 MEQ/L 220) CALCIUM (test code = 2209) 9.8 MG/DL PROTEIN, TOTAL (test code = 7.4 G/DL 2228) ALBUMIN (test code = 2201) 4.5 G/DL CALCULATED GLOBULIN (test code 2.9 G/DL = 2240) CALCULATED A/G RATIO (test 1.6 RATIO code = 2234) BILIRUBIN, TOTAL (test code = 0.9 MG/DL 2206) ALKALINE PHOSPHATASE (test 70 U/L code = 2204) SGOT (AST) (test code = 2218) 22 U/L SGPT (ALT) (test code = 2219) 10 U/L COMPREHENSIVE METABOLIC [id number] 00:00:00 Test Item Value Reference Range Interpretation Comments GLUCOSE (test code = 2217) 76 MG/DL BUN (test code = 2208) 18 MG/DL CREATININE (test code = 2214) 1.1 MG/DL eGFR AMER. (test code 79 ML/MIN/1.73 = 86297) eGFR NON- AMER. (test 65 ML/MIN/1.73 code = 03115) CALCULATED BUN/CREAT (test 16 RATIO code = 2235) SODIUM (test code = 2231) 141 MEQ/L POTASSIUM (test code = 2228) 4.6 MEQ/L CHLORIDE (test code = 2215) 106 MEQ/L CARBON DIOXIDE (test code = 24 MEQ/L 220) CALCIUM (test code = 2209) 9.8 MG/DL PROTEIN, TOTAL (test code = 7.4 G/DL 2228) ALBUMIN (test code = 2201) 4.5 G/DL CALCULATED GLOBULIN (test code 2.9 G/DL = 2240) CALCULATED A/G RATIO (test 1.6 RATIO code = 2234) BILIRUBIN, TOTAL (test code = 0.9 MG/DL 2206) ALKALINE PHOSPHATASE (test 70 U/L code = 2204) SGOT (AST) (test code = 2218) 22 U/L SGPT (ALT) (test code = 2219) 10 U/L LIPID [id number] 00:00:00 Test Item Value Reference Range Interpretation Comments CHOLESTEROL (test code = 2210) 126 MG/DL TRIGLYCERIDES (test code = 2232) 152 MG/DL HDL CHOLESTEROL (test code = 2220) 38 MG/DL CALCULATED LDL CHOL (test code = 58 MG/DL 2237) RISK RATIO LDL/HDL (test code = 1.52 RATIO 2238) LIPID [id number] 00:00:00 Test Item Value Reference Range Interpretation Comments CHOLESTEROL (test code = 2210) 126 MG/DL TRIGLYCERIDES (test code = 2232) 152 MG/DL HDL CHOLESTEROL (test code = 2220) 38 MG/DL CALCULATED LDL CHOL (test code = 58 MG/DL 2237) RISK RATIO LDL/HDL (test code = 1.52 RATIO 2238) CBC W/AUTO [id number] 00:00:00 Test Item Value Reference Range Interpretation Comments WBC (test code = 1001) 7.4 K/UL RBC (test code = 1002) 5.24 M/UL HEMOGLOBIN (test code = 1003) 14.7 G/DL HEMATOCRIT (test code = 1004) 45.5 % MCV (test code = 1005) 86.8 fL MCH (test code = 1006) 28.1 PG MCHC (test code = 1007) 32.3 G/DL RDW (test code = 1038) 14.5 % NEUTROPHILS (test code = 1008) 58 % LYMPHOCYTES (test code = 1010) 23 % MONOCYTES (test code = 1011) 9 % EOSINOPHILS (test code = 1012) 9 % BASOPHILS (test code = 1013) 1 % PLATELET COUNT (test code = 1015) 186 K/UL CBC W/AUTO [id number] 00:00:00 Test Item Value Reference Range Interpretation Comments WBC (test code = 1001) 7.4 K/UL RBC (test code = 1002) 5.24 M/UL HEMOGLOBIN (test code = 1003) 14.7 G/DL HEMATOCRIT (test code = 1004) 45.5 % MCV (test code = 1005) 86.8 fL MCH (test code = 1006) 28.1 PG MCHC (test code = 1007) 32.3 G/DL RDW (test code = 1038) 14.5 % NEUTROPHILS (test code = 1008) 58 % LYMPHOCYTES (test code = 1010) 23 % MONOCYTES (test code = 1011) 9 % EOSINOPHILS (test code = 1012) 9 % BASOPHILS (test code = 1013) 1 % PLATELET COUNT (test code = 1015) 186 K/UL CBC W/AUTO [id number] 00:00:00 Test Item Value Reference Range Interpretation Comments WBC (test code = 1001) 7.4 K/UL RBC (test code = 1002) 5.24 M/UL HEMOGLOBIN (test code = 1003) 14.7 G/DL HEMATOCRIT (test code = 1004) 45.5 % MCV (test code = 1005) 86.8 fL MCH (test code = 1006) 28.1 PG MCHC (test code = 1007) 32.3 G/DL RDW (test code = 1038) 14.5 % NEUTROPHILS (test code = 1008) 58 % LYMPHOCYTES (test code = 1010) 23 % MONOCYTES (test code = 1011) 9 % EOSINOPHILS (test code = 1012) 9 % BASOPHILS (test code = 1013) 1 % PLATELET COUNT (test code = 1015) 186 K/UL HEMOGLOBIN [id number] 00:00:00 Test Item Value Reference Range Interpretation Comments HEMOGLOBIN A1c (test code = 60310) 6.1 % HEMOGLOBIN [id number] 00:00:00 Test Item Value Reference Range Interpretation Comments HEMOGLOBIN A1c (test code = 18345) 6.1 % HEMOGLOBIN [id number] 00:00:00 Test Item Value Reference Range Interpretation Comments HEMOGLOBIN A1c (test code = 38149) 6.1 % THYROID II PROFILE (T3U, T4, T7, TSH)2014-09-30 00:00:00 Test Item Value Reference Range Interpretation Comments T3 UPTAKE (test code = 2817) 32.1 % T4 (THYROXINE) (test code = 2819) 6.7 UG/DL CALCULATED T7 (FTI) (test code = 2.15 3730) TSH (test code = 2821) <0.1 UIU/ML THYROID II PROFILE (T3U, T4, T7, TSH)2014-09-30 00:00:00 Test Item Value Reference Range Interpretation Comments T3 UPTAKE (test code = 2817) 32.1 % T4 (THYROXINE) (test code = 2819) 6.7 UG/DL CALCULATED T7 (FTI) (test code = 2.15 2820) TSH (test code = 2821) <0.1 UIU/ML
[2022-12-31] MEDS ORDERED: NA CHLORIDE 0.9% 2,000 ML ONE (16:35)
[2022-12-31 16:41] LABS: Absolute Lymphocytes (CBC) 1.6 K/uL (0.7-4.9); Hematocrit 38.3 % (39.6-49.0); MCV 87.5 fL (80-100); MPV 10.5 fL (7.6-11.3); Platelets 139 thou/uL (152-406); RBC Red Blood Cell Count 4.37 M/uL (4.33-5.43)
[2022-12-31 16:46] LABS: Protime INR 1.14
[2022-12-31 16:58] LABS: Albumin 3.1 g/dL (3.4-5.0); Bilirubin Direct 0.2 mg/dL (0-0.2); Bilirubin Indirect, Calculated 0.7 mg/dL (0.2-0.8); Bilirubin Total 0.9 mg/dL (0.2-1.0); Magnesium 1.7 mg/dL (1.6-2.4); Potassium 4.2 mEq/L (3.5-5.1); Protein, Total 6.4 g/dL (6.4-8.2); Troponin High Sensitivity 10.7 pg/mL (<58.9)
--- NOTE | 2022-12-31 17:35 | RAD REPORT ---
EXAM DESCRIPTION: CT - Head C Spine Cap Wo Con - 12/31/2022 5:18 pm CLINICAL HISTORY: Trauma, head and neck injury. Chest, abdomen and pelvis pain. TRAUMA COMPARISON: <Comparisons> TECHNIQUE: CT head without contrast. CT cervical spine without contrast with coronal and sagittal reformatted images. CT chest, abdomen and pelvis without contrast with coronal and sagittal reformatted images of the spi ne. All CT scans are performed using dose optimization technique as appropriate and may include automated exposure control or mA/KV adjustment according to patient size. FINDINGS: CT HEAD WITHOUT CONTRAST: No intracranial hemorrhage, hydrocephalus or extra-axial fluid collection. Mild generalized brain atr ophy. No areas of brain edema or midline shift. The paranasal sinuses and mastoids are clear. The calvarium is intact. CT CERVICAL SPINE WITHOUT CONTRAST: No fracture or subluxation. Mild mid and lower cervical degenerative changes. The prevertebral soft t issues are normal in thickness. CT CHEST, ABDOMEN, PELVIS WITHOUT CONTRAST: NOTE: Lack of contrast is a significant limitation in the assessment of trauma related findings. Spec ifically, solid organ, vascular and bowel evaluation is significantly limited. Moderate diffuse emphysema is present.Small hiatal hernia.No pneumothorax or pericardial/pleural flui d. No evidence of intra-abdominal visceral injury, free fluid or free air is seen within the above detai led limitations. Cholelithiasis. No concerning pelvic findings. No fractures. Moderate lumbar degenerative changes. IMPRESSION: Negative for acute traumatic findings within the above detailed limitations. Cholelithiasis.
--- NOTE | 2022-12-31 17:43 | RAD REPORT ---
EXAM DESCRIPTION: - - 12/31/2022 5:27 pm CLINICAL HISTORY: DIZZINESS Headache, drowsiness COMPARISON: Head C Spine Mpr Wo Con dated 12/16/2016; CAROTID ARTERY BILATERAL dated 01/04/2013 TECHNIQUE: Real-time sonographic evaluation of both carotid systems was performed. Doppler interroga tion was performed with waveform tracing bilaterally. FINDINGS: Normal high resistance waveforms are noted in both external carotid arteries. The common c arotid arteries and internal carotid arteries show normal low resistance waveforms. Moderate mixed plaque is seen involving both carotid bulbs. Peak soft velocity measurements on the ri ght are mildly elevated measuring up to 181 cm/second. Mild elevation right ICA to CCA ratio of 2.0 n oted. Based on NASCET criteria, this would indicate moderate stenosis. Antegrade flow seen in both vertebral arteries. IMPRESSION: Moderate hard plaquing involving both carotid bulbs, greater on the right. Moderate stenosis suspected proximal right ICA likely between 50-70%.
--- NOTE | 2022-12-31 17:55 | ER ---
Nurse's Notes [facility] Name: Glenn Cooney Age: 82 yrs Sex: Male : 1940 Arrival Date: 12/31/2022 Time: 15:58 Bed 5 Private MD: Diagnosis: Fall on same level, unspecified;Heat exhaustion, unspecified;Unspecified kidney failure;Bradycardia, unspecified;Occlusion and stenosis of unspecified carotid [id number]% ICA Presentation: 12/31 16:02 Chief complaint: EMS states: patient was found on the ground after an unknown amount of ap3 time. patient present with a trach hole, but no trach in place at this time. patient is awake, but not verbally responsive at this time. it is unknown if this is the patients baseline or not. Coronavirus screen: At this time, the client does not indicate any symptoms associated with coronavirus-19. Ebola Screen: No symptoms or risks identified at this time. Initial Sepsis Screen:. Risk Assessment: Do you want to hurt yourself or someone else? Patient reports no desire to harm self or others. Onset of symptoms is unknown. Care prior to arrival: Medication(s) given: Normal saline infusion, 1000 mL, IV initiated. 18 GA, in the right hand. 16:02 Method Of Arrival: EMS: [facility] ap3 16:02 Acuity: EDUAR 2 ap3 Triage Assessment: 16:05 General: Appears comfortable, Behavior is quiet. Pain: Unable to use pain scale. Does ap3 not appear to understand pain scale. Neuro: Level of Consciousness is awake, alert. Cardiovascular: Patient's skin is warm and dry. Respiratory: Airway is patent trach hole present, but is not accessed at this time. 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 Screenin:16 Abuse screen: Denies threats or abuse. Nutritional screening: No deficits noted. vc1 Tuberculosis screening: No symptoms or risk factors identified. Assessment: 16:36 Reassessment: see triage assessment. mb9 17:00 Reassessment: Patient appears in no apparent distress at this time. Patient and/or nj1 family updated on plan of care and expected duration. Pain level reassessed. Patient is alert, oriented x 3, equal unlabored respirations, skin warm/dry/pink. 18:10 Reassessment: Patient appears in no apparent distress at this time. Patient and/or nj1 family updated on plan of care and expected duration. Pain level reassessed. Patient is alert, oriented x 3, equal unlabored respirations, skin warm/dry/pink. Vital Signs: 16:02 BP 109 / 60; Pulse 57; Resp 17; Temp 98; Pulse Ox 97% on R/A; ap3 16:36 BP 117 / 62; Pulse 53; Resp 16; Pulse Ox 98% on R/A; mb9 18:55 BP 164 / 73; Pulse 54; nj1 ED Course: 16:02 Patient arrived in ED. bp 16:02 Geovanny Dickinson MD is Attending Physician. leah 16:04 Triage completed. ap3 16:06 Arm band placed on right wrist. ap3 16:06 Patient has correct armband on for positive identification. Bed in low position. Call ap3 light in reach. Side rails up X2. monitoring tech on. Pulse ox on. NIBP on. 16:13 Margarita Cooney, RN is Primary Nurse. cm10 16:35 CPK Sent. mb9 16:35 Lipase Sent. mb9 16:35 Basic Metabolic Panel Sent. mb9 16:35 CBC with Diff Sent. mb9 16:35 LFT's Sent. mb9 16:35 Magnesium Sent. mb9 16:35 PT-INR Sent. mb9 16:36 NT PRO-BNP Sent. mb9 16:36 Troponin HS Sent. mb9 16:36 EKG done, by ED staff, reviewed by Geovanny Dickinson MD. Inserted saline lock: 18 gauge in mb9 right hand, using aseptic technique. Blood collected. 17:19 Bouchra David, RN is Primary Nurse. nj1 17:20 CT Traumagram (Head C Spine CAP wo con) In Process Unspecified. EDMS 17:29 US Carotid Artery Bilateral In Process Unspecified. EDMS 17:50 XRAY Chest (1 view) In Process Unspecified. EDMS 19:17 No provider procedures requiring assistance completed. IV discontinued, intact, vc1 bleeding controlled, No redness/swelling at site. Pressure dressing applied. Administered Medications: 16:37 Drug: NS 0.9% IV 1000 ml Route: IV; Rate: 1 bolus; Site: right hand; mb9 16:37 Drug: NS 0.9% IV 1000 ml Route: IV; Rate: 1 bolus; Site: right hand; mb9 17:29 CANCELLED (Duplicate Order): NS 0.9% IV 1000 ml IV at 1 bolus Per protocol; 1000 mL leah bolus Medication: 19:18 VIS not applicable for this client. vc1 Outcome: 17:55 Discharge ordered by . leah 19:17 Discharged to home ambulatory, with family. vc1 19:17 Condition: good 19:17 Discharge instructions given to patient, family, Instructed on Demonstrated understanding of instructions, follow-up care, medications. 19:18 Patient left the ED. vc1 Signatures: Dispatcher [employer] EDMS Geovanny Dickinson MD MD cha Peltier, Brian, RN RN Sarai Balbuena RN RN ap3 Jannet Mattson RN RN vc1 Kate Adan RN RN mb9 Bouchra David RN RN nj1 Margarita Cooney RN RN cm10
--- NOTE | 2022-12-31 17:56 | EDPHYS ---
Physician Documentation [facility] Name: Glenn Cooney Age: 82 yrs Sex: Male : 1940 Arrival Date: 12/31/2022 Time: 15:58 Bed 5 Private MD: ED Physician Geovanny Dickinson HPI: 12/31 16:11 This 82 yrs old Male presents to ER via EMS with complaints of FALL IN HEAT . leah 16:11 FALL IN HEAT. The patient presents with decreased responsiveness. Onset: The leah symptoms/episode began/occurred just prior to arrival. Possible causes: CVA or TIA, head injury, low blood sugar, seizure, sepsis. The patient presents with feeling faint, generalized weakness. Onset: The symptoms/episode began/occurred today. Context: occurred outdoors, occurred while the patient was UNK. Modifying factors: The symptoms are alleviated by nothing, the symptoms are aggravated by nothing. Associated signs and symptoms: Pertinent positives: near-syncope. Severity of symptoms: At their worst the symptoms were moderate in the emergency department the symptoms have improved moderately. 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 ROS: 16:11 Constitutional: Negative for fever, chills, and weight loss, Eyes: Negative for injury, leah pain, redness, and discharge, ENT: Negative for injury, pain, and discharge, Neck: Negative for injury, pain, and swelling, Cardiovascular: Negative for chest pain, palpitations, and edema, Respiratory: Negative for shortness of breath, cough, wheezing, and pleuritic chest pain, Abdomen/GI: Negative for abdominal pain, nausea, vomiting, diarrhea, and constipation, Back: Negative for injury and pain, : Negative for injury, bleeding, discharge, and swelling, MS/Extremity: Negative for injury and deformity, Skin: Negative for injury, rash, and discoloration, Psych: Negative for depression, anxiety, suicide ideation, homicidal ideation, and hallucinations, Allergy/Immunology: Negative for hives, rash, and allergies, Endocrine: Negative for neck swelling, polydipsia, polyuria, polyphagia, and marked weight changes, Hematologic/Lymphatic: Negative for swollen nodes, abnormal bleeding, and unusual bruising. 16:11 Neuro: Positive for weakness. Exam: 16:11 Constitutional: This is a well developed, well nourished patient who is awake, alert, leah and in no acute distress. Head/Face: Normocephalic, atraumatic. Eyes: Pupils equal round and reactive to light, extra-ocular motions intact. Lids and lashes normal. Conjunctiva and sclera are non-icteric and not injected. Cornea within normal limits. Periorbital areas with no swelling, redness, or edema. ENT: Nares patent. No nasal discharge, no septal abnormalities noted. Tympanic membranes are normal and external auditory canals are clear. Oropharynx with no redness, swelling, or masses, exudates, or evidence of obstruction, uvula midline. Mucous membranes moist. Neck: Trachea midline, no thyromegaly or masses palpated, and no cervical lymphadenopathy. Supple, full range of motion without nuchal rigidity, or vertebral point tenderness. No Meningismus. Chest/axilla: Normal chest wall appearance and motion. Nontender with no deformity. No lesions are appreciated. Cardiovascular: Regular rate and rhythm with a normal S1 and S2. No gallops, murmurs, or rubs. Normal PMI, no JVD. No pulse deficits. Respiratory: Lungs have equal breath sounds bilaterally, clear to auscultation and percussion. No rales, rhonchi or wheezes noted. No increased work of breathing, no retractions or nasal flaring. Abdomen/GI: Soft, non-tender, with normal bowel sounds. No distension or tympany. No guarding or rebound. No evidence of tenderness throughout. Back: No spinal tenderness. No costovertebral tenderness. Full range of motion. Skin: Warm, dry with normal turgor. Normal color with no rashes, no lesions, and no evidence of cellulitis. MS/ Extremity: Pulses equal, no cyanosis. Neurovascular intact. Full, normal range of motion. Neuro: Awake and alert, GCS 15, oriented to person, place, time, and situation. Cranial nerves II-XII grossly intact. Motor strength 5/5 in all extremities. Sensory grossly intact. Cerebellar exam normal. Normal gait. Psych: Awake, alert, with orientation to person, place and time. Behavior, mood, and affect are within normal limits. 16:58 ECG was reviewed by the Attending Physician. [facility] Vital Signs: 16:02 BP 109 / 60; Pulse 57; Resp 17; Temp 98; Pulse Ox 97% on R/A; ap3 16:36 BP 117 / 62; Pulse 53; Resp 16; Pulse Ox 98% on R/A; mb9 18:55 BP 164 / 73; Pulse 54; nj1 MDM: 16:02 Patient medically screened. [facility] 16:17 Differential Diagnosis altered mental status, sepsis. Differential Diagnosis: CVA, leah electrolyte abnormality, hypoglycemia, intracranial bleed, pneumonia, seizure, UTI, volume depletion, cardiac arrhythmia, CVA, generalized weakness, GI bleed, hypovolemia, idiopathic dizziness, near-syncope, sepsis, syncope, TIA, vertigo. Data reviewed: vital signs, nurses notes, lab test result(s), EKG, radiologic studies, CT scan, plain films. Consideration of Admission/Observation Escalation of care including admission/observation considered. I considered the following discharge prescriptions or medication management in the emergency department Medications were administered in the Emergency Department. See MAR. Independent interpretation of the following test(s) in the Emergency Department EKG: See my EKG interpretation above. Test considered but Not performed: MRI: NO MRI BRAIN. Historians other than the Patient: EMS: EMS , INFORMED. Care significantly affected by the following chronic conditions: Hypertension, THROAT CANCER, HYPOTHYROID, XRT. Counseling: I had a detailed discussion with the patient and/or guardian regarding the historical points, exam findings, and any diagnostic results supporting the discharge/admit diagnosis, lab results, radiology results, the need for outpatient follow up, for definitive care, a family practitioner. 12/31 16:09 Order name: Basic Metabolic Panel; Complete Time: 17:26 [facility] 12/31 16:09 Order name: CBC with Diff [facility] 12/31 16:09 Order name: LFT's; Complete Time: 17:26 [facility] 12/31 16:09 Order name: Magnesium; Complete Time: 17:26 [facility] 12/31 16:09 Order name: NT PRO-BNP; Complete Time: 17:26 [facility] 12/31 16:09 Order name: PT-INR; Complete Time: 17:26 [facility] 12/31 16:09 Order name: Troponin HS; Complete Time: 17:26 [facility] 12/31 16:09 Order name: Lipase; Complete Time: 17:26 [facility] 12/31 16:09 Order name: CPK; Complete Time: 17:26 [facility] 12/31 16:09 Order name: XRAY Chest (1 view) [facility] 12/31 16:09 Order name: US Carotid Artery Bilateral; Complete Time: 17:50 [facility] 12/31 16:23 Order name: CT Traumagram (Head C Spine CAP wo con); Complete Time: 17:50 [facility] 12/31 16:09 Order name: EKG; Complete Time: 16:10 [facility] 12/31 16:09 Order name: Cardiac monitoring; Complete Time: 16:20 [facility] 12/31 16:09 Order name: EKG - Nurse/Tech; Complete Time: 16:35 [facility] 12/31 16:09 Order name: IV Saline Lock; Complete Time: 16:35 [facility] 12/31 16:09 Order name: Labs collected and sent; Complete Time: 16:35 [facility] 12/31 16:09 Order name: O2 Per Protocol; Complete Time: 16:22 [facility] 12/31 16:09 Order name: O2 Sat Monitoring; Complete Time: 16:22 [facility] EC:58 Rate is 54 beats/min. Rhythm is regular. QRS [place] is Normal. NE interval is normal. QRS leah interval is normal. QT interval is normal. No Q waves. T waves are Normal. No ST changes noted. Clinical impression: Sinus bradycardia and No evidence of ischemia. Interpreted by me. Reviewed by me. Administered Medications: 16:37 Drug: NS 0.9% IV 1000 ml Route: IV; Rate: 1 bolus; Site: right hand; mb9 16:37 Drug: NS 0.9% IV 1000 ml Route: IV; Rate: 1 bolus; Site: right hand; mb9 17:29 CANCELLED (Duplicate Order): NS 0.9% IV 1000 ml IV at 1 bolus Per protocol; 1000 mL leah bolus Disposition Summary: 12/31/22 17:55 Discharge Ordered Location: Home leah Problem: new leah Symptoms: have improved leah Condition: Stable leah Diagnosis - Fall on same level, unspecified leah - Heat exhaustion, unspecified leah - Unspecified kidney failure leah - Bradycardia, unspecified leah - Occlusion and stenosis of unspecified carotid artery - 50-70% ICA leah Followup: leah - With: Private Physician - When: 2 - 3 days - Reason: Recheck today's complaints, Continuance of care, Re-evaluation by your physician Discharge Instructions: - Discharge Summary Sheet leah - Fall Prevention in the Home, Adult leah - Acute Kidney Injury, Adult leah - Fall Prevention in the Home, Adult, [id number] leah - Heat Exhaustion leah - Aspirin and Your Heart leah - Chronic Kidney Disease, Adult, [id number]-[id number]-Lybk leah - Rehydration, Adult leah - Preventing Heat Exhaustion, Adult leah Forms: - Medication Reconciliation Form leah - Thank You Letter leah - Antibiotic Education leah - Prescription Opioid Use leah - Patient Portal Instructions leah - Leadership Thank You Letter leah Signatures: Dispatcher [employer] EDMS Geovanny Dickinson MD MD cha Prokisch, Amanda RN RN ap3 Kate Adan, RN RN mb9 Bouchra David RN RN nj1 Corrections: (The following items were deleted from the chart) 16:38 16:10 Head C Spine MPR Wo Con+CT.RAD.BRZ ordered. EDMS EDMS 17:29 17:29 NS 0.9% IV 1000 ml IV at 1 bolus Per protocol; 1000 mL bolus ordered. leah leah
--- NOTE | 2022-12-31 17:57 | RAD REPORT ---
EXAM DESCRIPTION: RAD - Chest Single View - 12/31/2022 5:48 pm CLINICAL HISTORY: COUGH Chest pain. COMPARISON: <Comparisons> FINDINGS: Portable technique limits examination quality. Mild bibasilar lung opacities are present, more significant on the left. This likely represents infil trate/pneumonia. Aspiration is a possibility. The heart is normal in size. No displaced fractures.
[2022-12-31 19:24] VITALS: TEMP 98
[2022-12-31 19:25] VITALS: O2SAT 98
[2022-12-31 19:26] VITALS: BP 164/73
[2022-12-31 19:29] LABS: Platelet Estimate DECR; White Blood Cell Scan OK (OK)
[2022-12-31 19:30] LABS: Blood Morphology Comment NOT SEEN (NOT SEEN)
--- NOTE | 2023-01-01 17:30 | EKG ---
Test Date: 2022-12-31 Test Time: 16:30:00 Packer Insulation: MB MEASUREMENT RESULTS: Intervals: Rate: 54 CA: 180 QRSD: 86 QT: 424 QTc: 402 Protection: P: 32 CA: 180 QRS: -1 T: 10 INTERPRETIVE STATEMENTS: Sinus bradycardia Otherwise normal ECG Compared to ECG 06/08/2020 14:20:27 No significant changes Electronically Signed On 01-01-23 17:27:36 CDT by Maverick Whitley
== END 2022-12-31 19:18 | disposition home or self-care (01) ==
LOC: ER 15:58
DX: T67.5XXA Heat exhaustion, unspecified, initial encounter (principal); W18.30XA Fall on same level, unspecified, initial encounter; R00.1 Bradycardia, unspecified; I65.23 Occlusion and stenosis of bilateral carotid arteries; I12.9 Hypertensive chronic kidney disease with stage 1 through stage 4 chronic kidney disease, or unspecified chronic kidney disease; N18.9 Chronic kidney disease, unspecified
CPT/HCPCS: 85025; 80048; 36415; 83735; 82550; 85610; 80076; 84484; 83690; 83880; 70450; 71250; 72125; 71045; 93880; J7030; 93005

== ENCOUNTER → 2023-05-07 | Emergency (ER) | payer OTHER ==
[~2023-05-07] MED LIST: ALBUTEROL 2.5 MG/3 ML NEB SOL ONE; IPRATROPIUM BROM 0.5MG/2.5ML ONE; METHYLPREDNISOLONE 125 MG INJ ONE; NA CHLORIDE 0.9% 1,000 ML ONE; PANTOPRAZOLE 40 MG INJ ONE
--- OUTSIDE RECORDS SUMMARY | 2023-05-07 12:57 | XMS REPORT | Continuity of Care Document ---
Author Name Unknown Address [address] [place] [address] [facility] thconnect Address 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 Name Role Phone Pcp, Patient Does Not Have A Primary Care Physic courtney Doctor Unassigned, [place] Attending Clinician U SALLY Hutson Attending Clinician Unavailable Hortencia CORONADO, Lou Lozoya Attending Clinician Unavail leonie Mayo PHD, Obdulia Mejia Attending Clinician Leonela TRAORE, Ana Attending Clinician [phone] Problems Condition Name Condition Details Condition Category Status Onset Date Resolution Date Last Treatment Date Treating Clinician Comments Source Communicat ion impairment Communicat ion impairment Disease Active 09-21 00:00: 00 Overview: Formattin g of this note might be different from the original. Added automatic ally from request for surgery [id number] [facility] Aphonia Aphonia Disease Active 09-21 00:00: 00 Overview: Formattin g of this note might be different from the original. Added automatic ally from request for surgery [id number] [facility] Communicat ion impairment Communicat ion impairment Disease Active 09-21 00:00: 00 Overview: Added automatic ally from request for surgery [id number] [facility] S/P laryngecto my S/P laryngecto my Disease Active 07 00:00: 00 Overview: Formattin g of this note might be different from the original. 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 05-25 00:00: 00 [facility] Allergies, Adverse Reactions, Alerts Allergy Name Allergy Type Status Severity Reaction(s) Onset Date Inactive Date Treating Clinician Comments Source NO KNOWN ALLERGIE S Drug Class Active 07-07 00:00: 00 [facility] No Known Allergie s Propensi ty to adverse reaction s Active 07-07:00: 00 [facility] Social History Social Habit Start Date Stop Date Quantity Comments Source Sexual orientation [facility] History of Social function 2018-11-25 00:00:00 2018-11-25 00:00:00 [facility] Alcohol intake 2018-10-07 00:00:00 2018-10-07 00:00:00 Current non-drinker of alcohol (finding) [facility] Tobacco use and exposure 2018-10-05 00:00:00 2018-10-05 00:00:00 Smokeless tobacco non-user [facility] Cigarettes smoked current (pack per day) - Reported 2018-10-05 00:00:00 2018-10-05 00:00:00 [facility] Cigarette pack-years 2018-10-05 00:00:00 2018-10-05 00:00:00 [facility] History of tobacco use 1992-03-16 00:00:00 Cigarette Smoker [facility] Sex Assigned At 1940 00:00:00 1940 00:00:00 [facility] Smoking Status Start Date Stop Date Source Ex-smoker 2018-10-05 00:00:00 2018-10-05 00:00:00 [facility] Medications Ordered Medication Name Filled Medication Name Start Date Stop Date Current Medication? Ordering Clinician Indication Dosage Frequency Signature (SIG) Comments Components Source gemfibrozil (LOPID) 600 mg tablet 10-06 23:54: 46 Yes 600mg Take 600 mg by mouth 2 (two) times daily before breakfast and dinner. [facility] metoprolol tartrate (LOPRESSOR) 25 mg tablet 10-06 23:54: 46 Yes 25mg Take 25 mg by mouth daily. [facility] pravastatin (PRAVACHOL) 40 mg tablet 10-06 23:54: 46 Yes 40mg Take 40 mg by mouth at bedtime. [facility] metFORMIN (GLUCOPHAGE ) 500 mg tablet 10-06 23:54: 46 Yes 500mg Take 500 mg by mouth 2 (two) times daily with meals. [facility] aspirin (ASPIRIN LOW DOSE) 81 mg EC tablet 10-06 23:54: 46 Yes 81mg Take 81 mg by mouth daily. [facility] NIFEdipine (ADALAT) 10 mg capsule 10-06 23:54: 46 Yes 10mg Take 10 mg by mouth daily. [facility] Levothyroxi ne (TIROSINT) 100 mcg Cap 10-06 23:54: 46 Yes 112ug Take 112 mcg by mouth. [facility] gemfibrozil (LOPID) 600 mg tablet 10-06 23:54: 46 Yes 600mg Take 600 mg by mouth 2 (two) times daily before breakfast and dinner. [facility] metoprolol tartrate (LOPRESSOR) 25 mg tablet 10-06 23:54: 46 Yes 25mg Take 25 mg by mouth daily. [facility] pravastatin (PRAVACHOL) 40 mg tablet 10-06 23:54: 46 Yes 40mg Take 40 mg by mouth at bedtime. [facility] metFORMIN (GLUCOPHAGE ) 500 mg tablet 10-06 23:54: 46 Yes 500mg Take 500 mg by mouth 2 (two) times daily with meals. [facility] aspirin (ASPIRIN LOW DOSE) 81 mg EC tablet 10-06 23:54: 46 Yes 81mg Take 81 mg by mouth daily. [facility] NIFEdipine (ADALAT) 10 mg capsule 10-06 23:54: 46 Yes 10mg Take 10 mg by mouth daily. [facility] Levothyroxi ne (TIROSINT) 100 mcg Cap 10-06 23:54: 46 Yes 112ug Take 112 mcg by mouth. [facility] gemfibrozil (LOPID) 600 mg tablet 10-06 23:54: 46 Yes 600mg Take 600 mg by mouth 2 (two) times daily before breakfast and dinner. [facility] metoprolol tartrate (LOPRESSOR) 25 mg tablet 10-06 23:54: 46 Yes 25mg Take 25 mg by mouth daily. [facility] pravastatin (PRAVACHOL) 40 mg tablet 10-06 23:54: 46 Yes 40mg Take 40 mg by mouth at bedtime. [facility] metFORMIN (GLUCOPHAGE ) 500 mg tablet 10-06 23:54: 46 Yes 500mg Take 500 mg by mouth 2 (two) times daily with meals. [facility] aspirin (ASPIRIN LOW DOSE) 81 mg EC tablet 10-06 23:54: 46 Yes 81mg Take 81 mg by mouth daily. [facility] NIFEdipine (ADALAT) 10 mg capsule 10-06 23:54: 46 Yes 10mg Take 10 mg by mouth daily. [facility] Levothyroxi ne (TIROSINT) 100 mcg Cap 10-06 23:54: 46 Yes 112ug Take 112 mcg by mouth. [facility] gemfibrozil (LOPID) 600 mg tablet 10-06 23:54: 46 Yes 600mg Take 600 mg by mouth 2 (two) times daily before breakfast and dinner. [facility] metoprolol tartrate (LOPRESSOR) 25 mg tablet 10-06 23:54: 46 Yes 25mg Take 25 mg by mouth daily. [facility] pravastatin (PRAVACHOL) 40 mg tablet 10-06 23:54: 46 Yes 40mg Take 40 mg by mouth at bedtime. [facility] metFORMIN (GLUCOPHAGE ) 500 mg tablet 10-06 23:54: 46 Yes 500mg Take 500 mg by mouth 2 (two) times daily with meals. [facility] aspirin (ASPIRIN LOW DOSE) 81 mg EC tablet 10-06 23:54: 46 Yes 81mg Take 81 mg by mouth daily. [facility] NIFEdipine (ADALAT) 10 mg capsule 10-06 23:54: 46 Yes 10mg Take 10 mg by mouth daily. [facility] Levothyroxi ne (TIROSINT) 100 mcg Cap 10-06 23:54: 46 Yes 112ug Take 112 mcg by mouth. [facility] gemfibrozil (LOPID) 600 mg tablet 10-06 23:54: 46 Yes 600mg Take 600 mg by mouth 2 (two) times daily before breakfast and dinner. [facility] metoprolol tartrate (LOPRESSOR) 25 mg tablet 10-06 23:54: 46 Yes 25mg Take 25 mg by mouth daily. [facility] pravastatin (PRAVACHOL) 40 mg tablet 10-06 23:54: 46 Yes 40mg Take 40 mg by mouth at bedtime. [facility] metFORMIN (GLUCOPHAGE ) 500 mg tablet 10-06 23:54: 46 Yes 500mg Take 500 mg by mouth 2 (two) times daily with meals. [facility] aspirin (ASPIRIN LOW DOSE) 81 mg EC tablet 10-06 23:54: 46 Yes 81mg Take 81 mg by mouth daily. [facility] NIFEdipine (ADALAT) 10 mg capsule 10-06 23:54: 46 Yes 10mg Take 10 mg by mouth daily. [facility] Levothyroxi ne (TIROSINT) 100 mcg Cap 10-06 23:54: 46 Yes 112ug Take 112 mcg by mouth. [facility] gemfibrozil (LOPID) 600 mg tablet 10-06 23:54: 46 Yes 600mg Take 600 mg by mouth 2 (two) times daily before breakfast and dinner. [facility] metoprolol tartrate (LOPRESSOR) 25 mg tablet 10-06 23:54: 46 Yes 25mg Take 25 mg by mouth daily. [facility] pravastatin (PRAVACHOL) 40 mg tablet 10-06 23:54: 46 Yes 40mg Take 40 mg by mouth at bedtime. [facility] metFORMIN (GLUCOPHAGE ) 500 mg tablet 10-06 23:54: 46 Yes 500mg Take 500 mg by mouth 2 (two) times daily with meals. [facility] aspirin (ASPIRIN LOW DOSE) 81 mg EC tablet 10-06 23:54: 46 Yes 81mg Take 81 mg by mouth daily. [facility] NIFEdipine (ADALAT) 10 mg capsule 10-06 23:54: 46 Yes 10mg Take 10 mg by mouth daily. [facility] Levothyroxi ne (TIROSINT) 100 mcg Cap 10-06 23:54: 46 Yes 112ug Take 112 mcg by mouth. [facility] gemfibrozil (LOPID) 600 mg tablet 10-06 23:54: 46 Yes 600mg Take 600 mg by mouth 2 (two) times daily before breakfast and dinner. [facility] metoprolol tartrate (LOPRESSOR) 25 mg tablet 10-06 23:54: 46 Yes 25mg Take 25 mg by mouth daily. [facility] pravastatin (PRAVACHOL) 40 mg tablet 10-06 23:54: 46 Yes 40mg Take 40 mg by mouth at bedtime. [facility] metFORMIN (GLUCOPHAGE ) 500 mg tablet 10-06 23:54: 46 Yes 500mg Take 500 mg by mouth 2 (two) times daily with meals. [facility] aspirin (ASPIRIN LOW DOSE) 81 mg EC tablet 10-06 23:54: 46 Yes 81mg Take 81 mg by mouth daily. [facility] NIFEdipine (ADALAT) 10 mg capsule 10-06 23:54: 46 Yes 10mg Take 10 mg by mouth daily. [facility] Levothyroxi ne (TIROSINT) 100 mcg Cap 10-06 23:54: 46 Yes 112ug Take 112 mcg by mouth. [facility] gemfibrozil (LOPID) 600 mg tablet 10-06 23:54: 46 Yes 600mg Take 600 mg by mouth 2 (two) times daily before breakfast and dinner. [facility] metoprolol tartrate (LOPRESSOR) 25 mg tablet 10-06 23:54: 46 Yes 25mg Take 25 mg by mouth daily. [facility] pravastatin (PRAVACHOL) 40 mg tablet 10-06 23:54: 46 Yes 40mg Take 40 mg by mouth at bedtime. [facility] metFORMIN (GLUCOPHAGE ) 500 mg tablet 10-06 23:54: 46 Yes 500mg Take 500 mg by mouth 2 (two) times daily with meals. [facility] aspirin (ASPIRIN LOW DOSE) 81 mg EC tablet 10-06 23:54: 46 Yes 81mg Take 81 mg by mouth daily. [facility] NIFEdipine (ADALAT) 10 mg capsule 10-06 23:54: 46 Yes 10mg Take 10 mg by mouth daily. [facility] Levothyroxi ne (TIROSINT) 100 mcg Cap 10-06 23:54: 46 Yes 112ug Take 112 mcg by mouth. [facility] gemfibrozil (LOPID) 600 mg tablet 10-06 23:54: 46 Yes 600mg Take 600 mg by mouth 2 (two) times daily before breakfast and dinner. [facility] metoprolol tartrate (LOPRESSOR) 25 mg tablet 10-06 23:54: 46 Yes 25mg Take 25 mg by mouth daily. [facility] pravastatin (PRAVACHOL) 40 mg tablet 10-06 23:54: 46 Yes 40mg Take 40 mg by mouth at bedtime. [facility] metFORMIN (GLUCOPHAGE ) 500 mg tablet 10-06 23:54: 46 Yes 500mg Take 500 mg by mouth 2 (two) times daily with meals. [facility] aspirin (ASPIRIN LOW DOSE) 81 mg EC tablet 10-06 23:54: 46 Yes 81mg Take 81 mg by mouth daily. [facility] NIFEdipine (ADALAT) 10 mg capsule 10-06 23:54: 46 Yes 10mg Take 10 mg by mouth daily. [facility] Levothyroxi ne (TIROSINT) 100 mcg Cap 10-06 23:54: 46 Yes 112ug Take 112 mcg by mouth. [facility] NIFEdipine (ADALAT) 10 mg capsule 10-06 18:54: 46 Yes 10mg Take 10 mg by mouth daily. [facility] Levothyroxi ne (TIROSINT) 100 mcg Cap 10-06 18:54: 46 Yes 112ug Take 112 mcg by mouth. [facility] gemfibrozil (LOPID) 600 mg tablet 10-06 18:54: 46 Yes 600mg Take 600 mg by mouth 2 (two) times daily before breakfast and dinner. [facility] metoprolol tartrate (LOPRESSOR) 25 mg tablet 10-06 18:54: 46 Yes 25mg Take 25 mg by mouth daily. [facility] pravastatin (PRAVACHOL) 40 mg tablet 10-06 18:54: 46 Yes 40mg Take 40 mg by mouth at bedtime. [facility] metFORMIN (GLUCOPHAGE ) 500 mg tablet 10-06 18:54: 46 Yes 500mg Take 500 mg by mouth 2 (two) times daily with meals. [facility] aspirin (ASPIRIN LOW DOSE) 81 mg EC tablet 10-06 18:54: 46 Yes 81mg Take 81 mg by mouth daily. [facility] NIFEdipine (ADALAT) 10 mg capsule 10-06 18:54: 46 Yes 10mg Take 10 mg by mouth daily. [facility] Levothyroxi ne (TIROSINT) 100 mcg Cap 10-06 18:54: 46 Yes 112ug Take 112 mcg by mouth. [facility] gemfibrozil (LOPID) 600 mg tablet 10-06 18:54: 46 Yes 600mg Take 600 mg by mouth 2 (two) times daily before breakfast and dinner. [facility] metoprolol tartrate (LOPRESSOR) 25 mg tablet 10-06 18:54: 46 Yes 25mg Take 25 mg by mouth daily. [facility] pravastatin (PRAVACHOL) 40 mg tablet 10-06 18:54: 46 Yes 40mg Take 40 mg by mouth at bedtime. [facility] metFORMIN (GLUCOPHAGE ) 500 mg tablet 10-06 18:54: 46 Yes 500mg Take 500 mg by mouth 2 (two) times daily with meals. [facility] aspirin (ASPIRIN LOW DOSE) 81 mg EC tablet 10-06 18:54: 46 Yes 81mg Take 81 mg by mouth daily. [facility] amoxicillin -clavulanat e (AUGMENTIN) 875-125 mg per tablet 10-06 00:00: 00 Yes [id number] 1{tbl} Take 1 tablet by mouth 2 (two) times daily. [facility] mupirocin (BACTROBAN) 2 % ointment 10-06 00:00: 00 Yes [id number] Apply to area(s) 2 (two) times daily. [facility] HYDROcodone -acetaminop hen (NORCO) 5-325 mg tablet 10-06 00:00: 00 Yes [id number] 1{tbl} Take 1 tablet by mouth every 6 (six) hours as needed for Pain (scale 1-3). [facility] omeprazole 40 mg capsule 10-06 00:00: 00 Yes [id number] 40mg Take 1 capsule by mouth 2 (two) times daily. [facility] amoxicillin -clavulanat e (AUGMENTIN) 875-125 mg per tablet 10-06 00:00: 00 Yes [id number] 1{tbl} Take 1 tablet by mouth 2 (two) times daily. [facility] mupirocin (BACTROBAN) 2 % ointment 10-06 00:00: 00 Yes [id number] Apply to area(s) 2 (two) times daily. [facility] HYDROcodone -acetaminop hen (NORCO) 5-325 mg tablet 10-06 00:00: 00 Yes [id number] 1{tbl} Take 1 tablet by mouth every 6 (six) hours as needed for Pain (scale 1-3). [facility] omeprazole 40 mg capsule 10-06 00:00: 00 Yes [id number] 40mg Take 1 capsule by mouth 2 (two) times daily. [facility] amoxicillin -clavulanat e (AUGMENTIN) 875-125 mg per tablet 10-06 00:00: 00 Yes [id number] 1{tbl} Take 1 tablet by mouth 2 (two) times daily. [facility] mupirocin (BACTROBAN) 2 % ointment 10-06 00:00: 00 Yes [id number] Apply to area(s) 2 (two) times daily. [facility] HYDROcodone -acetaminop hen (NORCO) 5-325 mg tablet 10-06 00:00: 00 Yes [id number] 1{tbl} Take 1 tablet by mouth every 6 (six) hours as needed for Pain (scale 1-3). [facility] omeprazole 40 mg capsule 10-06 00:00: 00 Yes [id number] 40mg Take 1 capsule by mouth 2 (two) times daily. [facility] amoxicillin -clavulanat e (AUGMENTIN) 875-125 mg per tablet 10-06 00:00: 00 Yes [id number] 1{tbl} Take 1 tablet by mouth 2 (two) times daily. [facility] mupirocin (BACTROBAN) 2 % ointment 10-06 00:00: 00 Yes [id number] Apply to area(s) 2 (two) times daily. [facility] HYDROcodone -acetaminop hen (NORCO) 5-325 mg tablet 10-06 00:00: 00 Yes [id number] 1{tbl} Take 1 tablet by mouth every 6 (six) hours as needed for Pain (scale 1-3). [facility] omeprazole 40 mg capsule 10-06 00:00: 00 Yes [id number] 40mg Take 1 capsule by mouth 2 (two) times daily. [facility] amoxicillin -clavulanat e (AUGMENTIN) 875-125 mg per tablet 10-06 00:00: 00 Yes [id number] 1{tbl} Take 1 tablet by mouth 2 (two) times daily. [facility] mupirocin (BACTROBAN) 2 % ointment 10-06 00:00: 00 Yes [id number] Apply to area(s) 2 (two) times daily. [facility] HYDROcodone -acetaminop hen (NORCO) 5-325 mg tablet 10-06 00:00: 00 Yes [id number] 1{tbl} Take 1 tablet by mouth every 6 (six) hours as needed for Pain (scale 1-3). [facility] omeprazole 40 mg capsule 10-06 00:00: 00 Yes [id number] 40mg Take 1 capsule by mouth 2 (two) times daily. [facility] amoxicillin -clavulanat e (AUGMENTIN) 875-125 mg per tablet 10-06 00:00: 00 Yes [id number] 1{tbl} Take 1 tablet by mouth 2 (two) times daily. [facility] mupirocin (BACTROBAN) 2 % ointment 10-06 00:00: 00 Yes [id number] Apply to area(s) 2 (two) times daily. [facility] HYDROcodone -acetaminop hen (NORCO) 5-325 mg tablet 10-06 00:00: 00 Yes [id number] 1{tbl} Take 1 tablet by mouth every 6 (six) hours as needed for Pain (scale 1-3). [facility] omeprazole 40 mg capsule 10-06 00:00: 00 Yes [id number] 40mg Take 1 capsule by mouth 2 (two) times daily. [facility] amoxicillin -clavulanat e (AUGMENTIN) 875-125 mg per tablet 10-06 00:00: 00 Yes [id number] 1{tbl} Take 1 tablet by mouth 2 (two) times daily. [facility] mupirocin (BACTROBAN) 2 % ointment 10-06 00:00: 00 Yes [id number] Apply to area(s) 2 (two) times daily. [facility] HYDROcodone -acetaminop hen (NORCO) 5-325 mg tablet 10-06 00:00: 00 Yes [id number] 1{tbl} Take 1 tablet by mouth every 6 (six) hours as needed for Pain (scale 1-3). [facility] omeprazole 40 mg capsule 10-06 00:00: 00 Yes [id number] 40mg Take 1 capsule by mouth 2 (two) times daily. [facility] amoxicillin -clavulanat e (AUGMENTIN) 875-125 mg per tablet 10-06 00:00: 00 Yes [id number] 1{tbl} Take 1 tablet by mouth 2 (two) times daily. [facility] mupirocin (BACTROBAN) 2 % ointment 10-06 00:00: 00 Yes [id number] Apply to area(s) 2 (two) times daily. [facility] HYDROcodone -acetaminop hen (NORCO) 5-325 mg tablet 10-06 00:00: 00 Yes [id number] 1{tbl} Take 1 tablet by mouth every 6 (six) hours as needed for Pain (scale 1-3). [facility] omeprazole 40 mg capsule 10-06 00:00: 00 Yes [id number] 40mg Take 1 capsule by mouth 2 (two) times daily. [facility] amoxicillin -clavulanat e (AUGMENTIN) 875-125 mg per tablet 10-06 00:00: 00 Yes [id number] 1{tbl} Take 1 tablet by mouth 2 (two) times daily. [facility] mupirocin (BACTROBAN) 2 % ointment 10-06 00:00: 00 Yes [id number] Apply to area(s) 2 (two) times daily. [facility] HYDROcodone -acetaminop hen (NORCO) 5-325 mg tablet 10-06 00:00: 00 Yes [id number] 1{tbl} Take 1 tablet by mouth every 6 (six) hours as needed for Pain (scale 1-3). [facility] omeprazole 40 mg capsule 10-06 00:00: 00 Yes [id number] 40mg Take 1 capsule by mouth 2 (two) times daily. [facility] amoxicillin -clavulanat e (AUGMENTIN) 875-125 mg per tablet 10-06 00:00: 00 Yes [id number] 1{tbl} Take 1 tablet by mouth 2 (two) times daily. [facility] mupirocin (BACTROBAN) 2 % ointment 10-06 00:00: 00 Yes [id number] Apply to area(s) 2 (two) times daily. [facility] HYDROcodone -acetaminop hen (NORCO) 5-325 mg tablet 10-06 00:00: 00 Yes [id number] 1{tbl} Take 1 tablet by mouth every 6 (six) hours as needed for Pain (scale 1-3). [facility] omeprazole 40 mg capsule 10-06 00:00: 00 Yes [id number] 40mg Take 1 capsule by mouth 2 (two) times daily. [facility] amoxicillin -clavulanat e (AUGMENTIN) 875-125 mg per tablet 10-06 00:00: 00 Yes [id number] 1{tbl} Take 1 tablet by mouth 2 (two) times daily. [facility] mupirocin (BACTROBAN) 2 % ointment 10-06 00:00: 00 Yes [id number] Apply to area(s) 2 (two) times daily. [facility] HYDROcodone -acetaminop hen (NORCO) 5-325 mg tablet 10-06 00:00: 00 Yes [id number] 1{tbl} Take 1 tablet by mouth every 6 (six) hours as needed for Pain (scale 1-3). [facility] omeprazole 40 mg capsule 10-06 00:00: 00 Yes [id number] 40mg Take 1 capsule by mouth 2 (two) times daily. [facility] Immunizations Ordered Immunization Name Filled Immunization Name Date Status Comments Source Influenza Virus Vaccine - Whole 2014-03-18 00:00:00 Completed [facility] Influenza Virus Vaccine - Whole 2014-03-18 00:00:00 Completed [facility] Influenza Virus Vaccine - Whole 2014-03-18 00:00:00 Completed [facility] Influenza Virus Vaccine - Whole 2014-03-18 00:00:00 Completed [facility] Influenza Virus Vaccine - Whole 2014-03-18 00:00:00 Completed [facility] Influenza Virus Vaccine - Whole 2014-03-18 00:00:00 Completed [facility] Influenza Virus Vaccine - Whole 2014-03-18 00:00:00 Completed [facility] Influenza Virus Vaccine - Whole 2014-03-18 00:00:00 Completed [facility] Influenza Virus Vaccine - Whole 2014-03-18 00:00:00 Completed [facility] Influenza Virus Vaccine - Whole 2014-03-18 00:00:00 Completed [facility] Pneumococcal Polysaccharide, PPSV23 (PNEUMOVAX) 2013-01-17 00:00:00 Completed [facility] Pneumococcal Polysaccharide, PPSV23 (PNEUMOVAX) 2013-01-17 00:00:00 Completed [facility] Pneumococcal Polysaccharide, PPSV23 (PNEUMOVAX) 2013-01-17 00:00:00 Completed [facility] Pneumococcal Polysaccharide, PPSV23 (PNEUMOVAX) 2013-01-17 00:00:00 Completed [facility] Pneumococcal Polysaccharide, PPSV23 (PNEUMOVAX) 2013-01-17 00:00:00 Completed [facility] Pneumococcal Polysaccharide, PPSV23 (PNEUMOVAX) 2013-01-17 00:00:00 Completed [facility] Pneumococcal Polysaccharide, PPSV23 (PNEUMOVAX) 2013-01-17 00:00:00 Completed [facility] Pneumococcal Polysaccharide, PPSV23 (PNEUMOVAX) 2013-01-17 00:00:00 Completed [facility] Pneumococcal Polysaccharide, PPSV23 (PNEUMOVAX) 2013-01-17 00:00:00 Completed [facility] Pneumococcal Polysaccharide, PPSV23 (PNEUMOVAX) 2013-01-17 00:00:00 Completed [facility] Pneumococcal Polysaccharide, PPSV23 (PNEUMOVAX) Unknown Completed [facility] Influenza Virus Vaccine - Whole Unknown Completed [facility] Procedures Procedure Date / Time Performed Performing Clinician Source REFERRAL- REQUEST/RESPONSE 2023-05-07 06:01:00 D octor Unassigned, [place] [facility] REFERRAL- REQUEST/RESPONSE 2022-08-18 05:01:00 D octor Unassigned, [place] [facility] NO SHOW OR MISSED APPOINTMENT POLICY ACKNOWLEDGEMENT 2018-12-17 18:49:49 Doctor Unassigned, [place] [facility] F[facility] ENT 2018-12-17 00:00:00 [facility] Start Date/Time End Date/Time Encounter Type Admission Type Attending Clinicians Care Facility Care Department Encounter ID Source 2023-05-07 00:00:00 2023-05-07 00:00:00 Orders Only Doctor Unassigned, [place] [facility] [id number] [facility] 2022-11-10 08:30:00 2022-11-10 08:30:00 Outpatient Rashid OCHOAZULEMASALLY TOVAR [facility] [id number] [facility] 2022-08-18 00:00:00 2022-08-18 00:00:00 Orders Only Doctor Unassigned, [place] [facility] [id number] [facility] 2018-12-22 07:58:54 2018-12-23 21:59:48 Ancillary Visit Lou Burnett [facility] [id number] 2018-12-22 07:58:54 2018-12-23 21:59:48 Ancillary Visit Lou Burnett Deborah L [facility] [id number] [id number] [facility] 2018-12-17 13:58:01 2018-12-17 15:16:25 Office Visit Ana Gipson [facility] [id number] [facility] 2018-12-17 00:00:00 2018-12-17 00:00:00 Orders Only Doctor Unassigned, [place] [facility] [id number] [facility] Results Test Description Test Time Test Comments Results Result Co mments Source HEMOGLOBIN [id number] 04:34:30* Test Item Value Reference Range Interpretation Comme nts HEMOGLOBIN A1c (test code = 09513) 5.9 % 4.2-5.6 H COMPREHENSIVE METABOLIC [id number] 05:22:49* Test Item Value Reference Range Interpretation Comme nts GLUCOSE (test code = 2217) 82 MG/DL 70-99 BUN (test code = 220) 26 MG/DL 8-23 H CREATININE (test code = 221) 1.38 MG/DL 0.80-1.40 eGFR (2020 CKD-EPI) (test code = 38753) 51 ML/MIN/1.73 >60 L CALC BUN/CREAT (test code = 2235) 19 RATIO 6-28 SODIUM (test code = 223) 142 MEQ/L 133-146 POTASSIUM (test code = 2228) 4.0 MEQ/L 3.5-5.4 CHLORIDE (test code = 2215) 106 MEQ/L 95-107 CARBON DIOXIDE (test code = 2206) 23 MEQ/L 19-31 CALCIUM (test code = 2209) 9.2 MG/DL 8.5-10.5 PROTEIN, TOTAL (test code = 2229) 7.3 G/DL 6.1-8.3 ALBUMIN (test code = 2201) 4.3 G/DL 3.5-5.2 CALC GLOBULIN (test code = 2240) 3.0 G/DL 1.9-3.7 CALC A/G RATIO (test code = 2234) 1.4 RATIO 1.0-2.6 BILIRUBIN, TOTAL (test code = 2207) 1.3 MG/DL See_Comment H [Automated me ssage] The system which generated this result transmitted reference range: <=1.2. The reference range was not used to interpret this result as normal/abnormal. ALKALINE PHOSPHATASE (test code = 2204) 72 U/L 40-125 AST (test code = 2218) 32 U/L 9-50 ALT (test code = 2219) 15 U/L 5-50 UNLESS OTHERWISE INDICATED, ALL TESTING PERFORMED ATCLINICAL PATHOLOGY [employer] [address] [place] [address] HUMAN SERVICES ASSISTANT: NORBERT LERMA M.D. CLIA NUMBER [id number] [place]. [id number] TSH, THIRD [id number] 06:05:01* Test Item Value Reference Range Interpretation Comme nts TSH, THIRD GENERATION (test code = 2821) 1.300 UIU/ML 0.400-4.100 UNLESS OTHERWISE INDICATED, ALL TESTING PERFORMED [facility] [employer] [address] [place] [address] HUMAN SERVICES ASSISTANT: NORBERT LERMA M.D. CLIA NUMBER [id number] [place]. [id number] COMPREHENSIVE METABOLIC [id number] 04:12:28* Test Item Value Reference Range Interpretation Comme nts GLUCOSE (test code = 2217) 96 MG/DL 70-99 BUN (test code = 2208) 31 MG/DL 8-23 H CREATININE (test code = 2214) 1.46 MG/DL 0.80-1.40 H EFFECTIVE 04/29/2021, [facility] HAS IMPLEMENTED THE NKF-ASN RECOMMENDED KD-EPI EGFR REFIT CALCULATION THAT DOES NOT INCLUDE A COEFFICIENT FORRACE. FOR MORE INFORMATION, SEE ANNOUNCEMENT [email or web address] eGFR (2020 CKD-EPI) (test code = 34475) 48 ML/MIN/1.73 >60 L CALC BUN/CREAT (test code = 2235) 21 RATIO 6-28 SODIUM (test code = 223) 143 MEQ/L 133-146 POTASSIUM (test code = 2228) 4.4 MEQ/L 3.5-5.4 CHLORIDE (test code = 2215) 104 MEQ/L 95-107 CARBON DIOXIDE (test code = 2206) 25 MEQ/L 19-31 CALCIUM (test code = 2209) 10.6 MG/DL 8.5-10.5 H PROTEIN, TOTAL (test code = 222) 7.9 G/DL 6.1-8.3 ALBUMIN (test code = 2201) 4.6 G/DL 3.5-5.2 CALC GLOBULIN (test code = 2240) 3.3 G/DL 1.9-3.7 CALC A/G RATIO (test code = 223) 1.4 RATIO 1.0-2.6 BILIRUBIN, TOTAL (test code = 2207) 1.2 MG/DL See_Comment [Automated me ssage] The system which generated this result transmitted reference range: <=1.2. The reference range was not used to interpret this result as normal/abnormal. ALKALINE PHOSPHATASE (test code = 2204) 94 U/L 40-125 AST (test code = 2218) 30 U/L 9-50 ALT (test code = 2219) 14 U/L 5-50 LIPID [id number] 04:12:28* Test Item Value Reference Range Interpretation Comme nts CHOLESTEROL (test code = 2210) 138 MG/DL <200 TRIGLYCERIDES (test code = 2232) 139 MG/DL <150 HDL CHOLESTEROL (test code = 2220) 39 MG/DL >39 L CALC LDL CHOL (test code = 2237) 77 MG/DL <100 NOTE: CALCULATED LDL IS BASED ON MARILU-ROJAS METHOD WHICHINCLUDES ADJUSTABLE TRIGLYCERIDE:VLDL CHOLESTEROL RATIO.THIS FACTOR VARIES BY MEASURED TRIGLYCERIDE AND NON-HDLCHOLESTEROL CONCENTRATIONS WITH INCREASED CALCULATED LDL SEENIN HIGHER TRIGLYCERIDE OR LOWER NON-HDL SPECIMENS. FOR MOREINFORMATION, SEE CLIENT ANNOUNCEMENT AT [email or web address] RATIO LDL/HDL (test code = 2238) 1.97 RATIO <3.55 FLEXIBLE SCOPE [id number] 00:00:00Please see endoscopic findings from clinic note from 12/17/2018.[facility]
--- NOTE | 2023-05-07 14:50 | RAD REPORT ---
EXAM DESCRIPTION: RAD - Chest Pa And Lat (2 Views) - 05/07/2023 1:53 pm CLINICAL HISTORY: DYSPNEA COMPARISON: Chest Single View dated 12/31/2022; Chest Single View dated 06/11/2020; Chest Single View dated 06/08/2020; Chest Single View dated 04/11/2018; Head C Spine Cap Wo Con dated 12/31/2022 TECHNIQUE: PA and lateral views of the chest were obtained. FINDINGS: Patchy left more than right basilar airspace opacification is stable in appearance over mu ltiple prior exams. No other acute airspace opacities. Background hyperlucency and hyperinflation. He art size is normal and central vasculature is within normal limits. No pleural effusion or pneumothor ax seen. No acute bony finding noted. IMPRESSION: Stable patchy left more than right basilar airspace opacities which may relate to fibroe mphysematous changes, scarring, or recurrent pneumonia. No other acute cardiopulmonary process.
[2023-05-07 14:53] LABS: Absolute Lymphocytes (CBC) 0.6 K/uL (0.7-4.9); Hematocrit 39.2 % (39.6-49.0); Lymphocytes % 11.8 % (15.3-44.8); MCV 87.7 fL (80-100); MPV 9.7 fL (7.6-11.3); Platelets 66 thou/uL (152-406); RBC Red Blood Cell Count 4.46 M/uL (4.33-5.43)
[2023-05-07 15:10] LABS: SARS-CoV-2 Antigen Rapid Res Negative (Negative)
[2023-05-07 15:12] LABS: Albumin 3.3 g/dL (3.4-5.0); Bilirubin Direct 0.5 mg/dL (0-0.2); Bilirubin Indirect, Calculated 1.1 mg/dL (0.2-0.8); Bilirubin Total 1.6 mg/dL (0.2-1.0); Magnesium 1.6 mg/dL (1.6-2.4); Potassium 3.3 mEq/L (3.5-5.1); Protein, Total 7.5 g/dL (6.4-8.2); Troponin High Sensitivity 58.8 pg/mL (<58.9)
[2023-05-07 16:09] LABS: Blood Morphology Comment NOT SEEN (NOT SEEN); Platelet Estimate DECR; White Blood Cell Scan OK (OK)
--- NOTE | 2023-05-07 17:13 | RAD REPORT ---
EXAM DESCRIPTION: CT - Chest For Pe Angio - 05/07/2023 4:17 pm CLINICAL HISTORY: SOB COMPARISON: Chest Abd Pelvis Wo Con dated 06/08/2020; CTANGIO CHEST FOR PE dated 01/04/2013; THORAX WO CONTRAST dated 01/04/2013; Chest Pa And Lat (2 Views) dated 05/07/2023; Head C Spine Cap Wo Con dated 12/31/2022 TECHNIQUE: Thin axial CT images of the chest were obtained following administration of 100 mL Isovue 370 IV contrast. Multiplanar reconstructions, and maximum intensity projection reconstructions were generated and reviewed. Exam utilizes a protocol for optimal evaluation of pulmonary arterial tree. All CT scans are performed using dose optimization technique as appropriate and may include automated exposure control or mA/KV adjustment according to patient size. FINDINGS: Pulmonary arteries are normal. No emboli or other suspicious finding. No acute or signific ant aorta findings. No mass or new infiltrate in the lung parenchyma. Stable pattern of reticular opacities and bronchial wall thickening in the lower lungs. No pleural thickening or pleural effusion. No pneumothorax. No abnormal mediastinal or hilar masses or lymphadenopathy seen. No chest wall mass or abnormal axill iary lymphadenopathy. Cholelithiasis. Other included upper abdominal structures are unremarkable. Circumferential wall thic kening along the distal esophagus, stable, may relate to nonspecific esophagitis or sequelae of reflu x disease. IMPRESSION: No evidence of acute central pulmonary emboli. Stable chronic appearing pattern of reticular opacities and bronchial wall thickening in the lower kaylni ngs, suggestive of chronic sequelae of obstructive lung disease and/or fibrosis. Cholelithiasis. Distal esophageal wall thickening, may relate to nonspecific infectious/inflammatory esophagitis, or sequelae of reflux.
--- NOTE | 2023-05-07 17:19 | ER ---
Nurse's Notes [facility] Name: Glenn Cooney Age: 83 yrs Sex: Male : 1940 Arrival Date: 05/07/2023 Time: 12:53 Bed 15 Private MD: Diagnosis: Acute upper respiratory infection, unspecified Presentation: 05/07 13:00 Method Of Arrival: Ambulatory 1 13:00 Acuity: EDUAR 3 1 13:09 Ebola Screen: Patient denies travel to an Ebola-affected area in the 21 days before [facility] illness onset. Initial Sepsis Screen: Does the patient meet any 2 criteria? No. Patient's initial sepsis screen is negative. Does the patient have a suspected source of infection? Yes: Productive cough/pneumonia. Risk Assessment: Do you want to hurt yourself or someone else? Patient reports no desire to harm self or others. 13:13 Chief complaint: Patient states: SOB for 5 days. No fever. Coronavirus screen: Client 1 denies travel out of the [place] in the last 14 days. cough unrelated to allergies, difficulty breathing, shortness of breath. Onset of symptoms was May 02, 2023. Triage Assessment: 15:00 General: Appears in no apparent distress. comfortable, Behavior is calm, cooperative. cm10 Respiratory: Reports shortness of breath cough that is Onset: The symptoms/episode began/occurred gradually, the patient has mild shortness of breath. 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 - Social history:: Smoking status: Patient denies any tobacco usage or history of. Screenin:[address] [facility] ED Fall Risk Assessment (Adult) History of falling in the last 3 months, cm10 including since admission No falls in past 3 months (0 pts) Confusion or Disorientation No (0 pts) Intoxicated or Sedated No (0 pts) Impaired Gait No (0 pts) Mobility Assist Device Used No (0 pt) Altered Elimination No (0 pt) Score/Fall Risk Level 0 - 2 = Low Risk Oriented to surroundings, Maintained a safe environment, Hourly rounding (assess needs \T\ fall precautionary measures) done. 17:44 Abuse screen: Denies threats or abuse. Denies injuries from another. Nutritional cm10 screening: No deficits noted. Tuberculosis screening: No symptoms or risk factors identified. Assessment: 15:08 General: Appears in no apparent distress. comfortable, Behavior is calm, cooperative. cm10 Pain: Complains of pain in back and chest. Neuro: No deficits noted. Level of Consciousness is awake, alert, Oriented to person, place, time, situation. Cardiovascular: Patient's skin is warm and dry. Rhythm is regular. Respiratory: No deficits noted. Airway is patent Respiratory effort is even, unlabored, Respiratory pattern is regular, symmetrical, Breath sounds with wheezes bilaterally. GI: No deficits noted. No signs and/or symptoms were reported involving the gastrointestinal system. : No deficits noted. EENT: No deficits noted. No signs and/or symptoms were reported regarding the EENT system. Derm: No deficits noted. No signs and/or symptoms reported regarding the dermatologic system. Skin is intact, Skin is pink, warm \T\ dry. Musculoskeletal: No deficits noted. Range of motion: intact in all extremities. 17:00 Reassessment: Patient appears in no apparent distress at this time. Patient is alert, cm10 oriented x 3, equal unlabored respirations, skin warm/dry/pink. Patient states feeling better. Patient states symptoms have improved. Vital Signs: 13:13 BP 134 / 69; Pulse 98; Resp 26; Temp 98.6; Pulse Ox 95% ; Weight 72.57 kg; Height 5 ft. ll1 9 in. ; Pain 5/10; 15:00 BP 108 / 61; Pulse 90; Resp 18; Pulse Ox 99% on R/A; cm10 15:30 BP 108 / 61; Pulse 111; Resp 18; Pulse Ox 99% ; cm10 16:00 BP 122 / 70; Pulse 105; Resp 16; Pulse Ox 94% on R/A; cm10 16:30 BP 135 / 67; Pulse 107; Resp 18; Pulse Ox 98% on R/A; cm10 17:00 BP 135 / 63; Pulse 98; Resp 18; Pulse Ox 95% ; cm10 13:13 Body Mass Index 23.63 (72.57 kg, 175.26 cm) ll1 13:13 Pain Scale: Adult ll1 ED Course: 12:54 Patient arrived in ED. rg4 13:00 Belkys Chauhan PA-C is PHCP. sb4 13:01 Triage completed. ll1 13:01 Arm band placed on. ll1 13:48 Jaiden Torres MD is Attending Physician. sb4 13:53 XRAY Chest Pa And Lat (2 Views) In Process Unspecified. EDMS 14:25 Margarita Cooney, JOSSELYN is Primary Nurse. cm10 15:09 Patient has correct armband on for positive identification. Bed in low position. Call cm10 light in reach. Side rails up X2. Provided Education on: ER process and procedures.. 15:09 No provider procedures requiring assistance completed. Inserted saline lock: 20 gauge cm10 in right forearm, using aseptic technique. Blood collected. 16:18 CT Chest For PE Angio In Process Unspecified. EDMS 17:43 IV discontinued, intact, bleeding controlled, No redness/swelling at site. Pressure cm10 dressing applied. Administered Medications: 14:50 Drug: DuoNeb Nebulize (3:1) (2.5 mg - 0.5 mg) 3 ml Nebulizer once Route: Nebulizer; cm10 15:13 Follow up: Response: No adverse reaction; Wheezing diminished cm10 14:50 Drug: MethylPrednisoLONE IVP 125 mg IVP once Route: IVP; Site: right forearm; cm10 15:13 Follow up: Response: No adverse reaction cm10 15:44 Drug: NS 0.9% IV 1000 ml IV at 1 bolus Per protocol; 1000 mL bolus Route: IV; Rate: 1 cm10 bolus; Site: right forearm; 17:30 Follow up: Response: No adverse reaction; IV Status: Completed infusion; IV Intake: cm10 1000ml 17:40 Drug: Pantoprazole IVP 40 mg IVP once Route: IVP; Site: right wrist; cm10 17:45 Follow up: Response: No adverse reaction cm10 Medication: 15:07 VIS not applicable for this client. cm10 Intake: 17:30 IV: 1000ml; Total: 1000ml. cm10 Outcome: 17:19 Discharge ordered by . sb4 17:44 Discharged to home ambulatory, with family, cm10 17:44 Condition: good 17:44 Discharge instructions given to patient, family, Instructed on discharge instructions, follow up and referral plans. medication usage, Demonstrated understanding of instructions, follow-up care, medications, Prescriptions given X 2, 17:45 Patient left the ED. cm10 Signatures: Dispatcher [employer] EDMS Charito Pablo rg4 Babatunde Falk, RN RN ll1 Belkys Chauhan PA-C PAAnthony sb4 Margarita Cooney RN RN cm10 Corrections: (The following items were deleted from the chart) 13:15 13:13 Pulse 98bpm; Resp 26bpm; Pulse Ox 95%; Temp 98.6F; 72.57 kg; Height 5 ft. 9 in.; ll1 BMI: 23.6; Pain 5/10, Adult; ll1
--- NOTE | 2023-05-07 17:20 | EDPHYS ---
Physician Documentation [facility] Name: Glenn Cooney Age: 83 yrs Sex: Male : 1940 Arrival Date: 05/07/2023 Time: 12:53 Bed 15 Private MD: ED Physician Jaiden Torres HPI: 05/07 13:22 This 83 yrs old Male presents to ER via Ambulatory with complaints of sb4 shortness of breath. 13:23 The patient has shortness of breath at rest. sb4 13:28 patient reports progressively worsening upper respiratory congestion and shortness of sb4 breath for 8 weeks. 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 denies any fevers, chest pain, nausea, vomiting, chills, diarrhea, secretions from stoma. 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 - Social history:: Smoking status: Patient denies any tobacco usage or history of. ROS: 13:36 Constitutional: Negative for fever, chills, and weight loss, sb4 13:36 ENT: Positive for sinus congestion, 13:36 Respiratory: Positive for cough, shortness of breath, 13:36 All other systems are negative, Exam: 13:36 Constitutional: This is a well developed, well nourished patient who is awake, alert, sb4 and in no acute distress. Head/Face: Normocephalic, atraumatic. Eyes: Extra-ocular motions intact. Periorbital areas with no swelling, redness, or edema. Cardiovascular: Regular rate and rhythm with a normal S1 and S2. Abdomen/GI: Soft, non-tender, no distension. MS/ Extremity: Pulses equal, no cyanosis. Neurovascular intact. Full, normal range of motion. Neuro: Awake and alert, GCS 15, oriented to person, place, time, and situation. Motor strength 5/5 in all extremities. Sensory grossly intact. 13:36 Respiratory: the patient does not display signs of respiratory distress, Respirations: tachypnea, that is moderate, Breath sounds: + upper airway congestion. wheezing: expiratory that is moderate, is scattered, Vital Signs: 13:13 BP 134 / 69; Pulse 98; Resp 26; Temp 98.6; Pulse Ox 95% ; Weight 72.57 kg; Height 5 ft. ll1 9 in. ; Pain 5/10; 15:00 BP 108 / 61; Pulse 90; Resp 18; Pulse Ox 99% on R/A; cm10 15:30 BP 108 / 61; Pulse 111; Resp 18; Pulse Ox 99% ; cm10 16:00 BP 122 / 70; Pulse 105; Resp 16; Pulse Ox 94% on R/A; cm10 16:30 BP 135 / 67; Pulse 107; Resp 18; Pulse Ox 98% on R/A; cm10 17:00 BP 135 / 63; Pulse 98; Resp 18; Pulse Ox 95% ; cm10 13:13 Body Mass Index 23.63 (72.57 kg, 175.26 cm) ll1 13:13 Pain Scale: Adult ll1 MDM: 13:00 Patient medically screened. sb4 13:36 Differential diagnosis: Bronchitis Chronic Obstructive Pulmonary Disease pneumonia, sb4 pulmonary edema. 14:51 The patient's [place] Deep Vein Thrombosis Score was calculated as follows: No Risks (0 sb4 Pts). The patient's pulmonary embolism risk score was calculated as follows: No Risks (0 Pts). Independent interpretation of the following test(s) in the Emergency Department X-Ray: My interpretation is my interpretation of the chest xray images are no acute consolidation/evidence of pneumonia. 05/08 00:41 Antibiotic administration: The patient is discharged and will get outpatient sb4 antibiotics. Data reviewed: vital signs, nurses notes, lab test result(s), radiologic studies, I have discussed the patient's presentation/case with the attending Emergency Department Physician; and as a result, I will discharge patient. Consideration of Admission/Observation Escalation of care including admission/observation considered. Historians other than the Patient: Friend: friend. 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 05/07 13:22 Order name: BMP; Complete Time: 15:24 sb4 05/07 13:22 Order name: CBC with Diff; Complete Time: 16:10 sb4 05/07 13:22 Order name: CPK; Complete Time: 15:24 sb4 05/07 13:22 Order name: Hepatic Function; Complete Time: 15:24 sb4 05/07 13:22 Order name: Lipase; Complete Time: 15:24 sb4 05/07 13:22 Order name: Magnesium; Complete Time: 15:24 sb4 05/07 13:22 Order name: NT PRO-BNP; Complete Time: 15:24 sb4 05/07 13:22 Order name: Troponin HS; Complete Time: 15:24 sb4 05/07 13:22 Order name: SARS RAPID; Complete Time: 15:11 sb4 05/07 13:22 Order name: Flu; Complete Time: 15:11 sb4 05/07 16:09 Order name: CBC Smear Scan; Complete Time: 16:10 EDMS 05/07 13:22 Order name: XRAY Chest Pa And Lat (2 Views); Complete Time: 14:50 sb4 05/07 15:26 Order name: CT Chest For PE Angio; Complete Time: 17:14 sb4 05/07 13:22 Order name: EKG; Complete Time: 13:22 sb4 05/07 13:22 Order name: Cardiac monitoring; Complete Time: 14:50 sb4 05/07 13:22 Order name: EKG - Nurse/Tech; Complete Time: 14:25 sb4 05/07 13:22 Order name: IV Saline Lock; Complete Time: 14:50 sb4 05/07 13:22 Order name: Labs collected and sent; Complete Time: 14:50 sb4 05/07 13:22 Order name: O2 Per Protocol; Complete Time: 14:50 sb4 05/07 13:22 Order name: O2 Sat Monitoring; Complete Time: 14:50 sb4 EC/21 14:28 Rate is 80 beats/min. Rhythm is regular, Normal Sinus Rhythm. QRS [place] is Normal. [place] sb4 interval is normal at 170 msec. QRS interval is normal at 80 msec. QT interval is normal at 368 msec. No Q waves. T waves are Normal. No ST changes noted. Clinical impression: Normal ECG. Interpreted by me. Reviewed by me. Administered Medications: 14:50 Drug: DuoNeb Nebulize (3:1) (2.5 mg - 0.5 mg) 3 ml Nebulizer once Route: Nebulizer; cm10 15:13 Follow up: Response: No adverse reaction; Wheezing diminished cm10 14:50 Drug: MethylPrednisoLONE IVP 125 mg IVP once Route: IVP; Site: right forearm; cm10 15:13 Follow up: Response: No adverse reaction cm10 15:44 Drug: NS 0.9% IV 1000 ml IV at 1 bolus Per protocol; 1000 mL bolus Route: IV; Rate: 1 cm10 bolus; Site: right forearm; 17:30 Follow up: Response: No adverse reaction; IV Status: Completed infusion; IV Intake: cm10 1000ml 17:40 Drug: Pantoprazole IVP 40 mg IVP once Route: IVP; Site: right wrist; cm10 17:45 Follow up: Response: No adverse reaction cm10 Disposition Summary: 05/07/23 17:19 Discharge Ordered Notes: Location: Home sb4 Problem: an ongoing problem sb4 Symptoms: have improved sb4 Condition: Stable sb4 Diagnosis - Acute upper respiratory infection, unspecified sb4 Followup: sb4 - With: Emergency Department - When: As needed - Reason: Trouble breathing, Worsening of condition Discharge Instructions: - Discharge Summary Sheet sb4 - Cholelithiasis sb4 - Upper Respiratory Infection, Adult, [id number] sb4 Forms: - Medication Reconciliation Form sb4 - Thank You Letter sb4 - Antibiotic Education sb4 - Prescription Opioid Use sb4 - Patient Portal Instructions sb4 - Leadership Thank You Letter sb4 Prescriptions: - azithromycin 100 mg/5 mL Oral Suspension for Reconstitution - take 1 package ORAL route per package directions take 5 mL (100 mg) by mouth sb4 today (day 1), then 2.5 mL (50 mg) daily for 4 days (days 2-5); 15 milliliter; Refills: 0, Product Selection Permitted - prednisone 5 mg/5 mL Oral solution - take 20 milliliter ORAL route 2 times per day for 5 days; 200 milliliter; sb4 Refills: 0, Product Selection Permitted Addendum: 05/12/2023 09:33 I was immediately available for consultation during this patient's visit. I did not e c2 personally see the patient or guide the patient's care. . Signatures: Dispatcher [employer] EDBabatunde Rodriguez, RN RN ll1 Belkys Chauhan PASaravananC PASaravananC sb4 Margarita Cooney RN RN cm10 Jaiden Torres MD MD ec2 Corrections: (The following items were deleted from the chart) 05/07 13:37 13:28 patient reports progressively worsening upper respiratory congestion and sb4 shortness of breath for 8 weeks. 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 sb4
[2023-05-07 21:15] VITALS: TEMP 98.6
[2023-05-07 21:26] VITALS: BP 135/63; O2SAT 95
--- NOTE | 2023-05-08 15:07 | EKG ---
Test Date: 2023-05-07 Test Time: 14:22:06 Insurance Producer: REGGIE MEASUREMENT RESULTS: Intervals: Rate: 0 MS: QRSD: 0 QT: 0 QTc: 0 [place]: P: MS: QRS: 0 T: 0 INTERPRETIVE STATEMENTS: No QRS complexes found, no ECG analysis possible Electronically Signed On 05-08-23 15:07:25 REAL ESTATE SALESPERSON by Maverick Whitley
--- NOTE | 2023-05-08 15:07 | EKG ---
Test Date: 2023-05-07 Test Time: 14:23:54 Spinning Frame Cleaner: REGGIE MEASUREMENT RESULTS: Intervals: Rate: 80 CA: 170 QRSD: 80 QT: 368 QTc: 424 [place]: P: 32 CA: 170 QRS: 20 T: 41 INTERPRETIVE STATEMENTS: Normal sinus rhythm Normal ECG Compared to ECG 05/07/2023 14:22:06 No significant changes Electronically Signed On 05-08-23 15:07:17 DRY CLEANING MANAGER by Maverick Whitley
== END ==
LOC: ER 12:53
DX: J06.9 Acute upper respiratory infection, unspecified (principal); Z11.52 Encounter for screening for COVID-19; E03.9 Hypothyroidism, unspecified; I10 Essential (primary) hypertension
CPT/HCPCS: 93005 ×2; 85025; 80048; 36415; 83735; 82550; 80076; 84484; 83690; 83880; 87804 ×2; 71275; 71046; 94640; 99285; 87811; Q9967; J7613; J7644; C9113; J2930; J7030